=== PATIENT | female | born 1960 | race Caucasian/White ===

== ENCOUNTER → 2021-06-28 14:08 | Outpatient (REF) | payer OTHER, SELFPAY ==
--- NOTE | 2021-06-28 14:09 | CA_ITS ---
Transthoracic Echocardiogram Patient (Last, First, Middle): Miracle Joseph, Gender: Female Date of : 1960 Age: 60 Procedure Date: 06/28/2021 Procedure Type: Transthoracic Echocardiogram Location: OP Height: 152.4 cm Weight: 89.81 kg BSA: 1.86 m2 Heart Rate: bpm BP: 128 / 80 mmHg Check Out Clerk: Referring MD: Harish Murrell PA-C Symptoms: Z95.2 - Presence of prosthetic heart valve Study Quality: Fair ECG Rhythm: Sinus Conclusions: - The left ventricular systolic function is normal. The visually estimated ejection fraction is between 60-65%. - Evidence suggests grade II (moderate) diastolic dysfunction. - A mechanical prosthetic aortic valve is present. The prosthetic aortic valve appears to be functioning normally. - There is mild mitral valve regurgitation. Findings Left Ventricle Normal left ventricular cavity size. There is mildly increased left ventricular wall thickness. The left ventricular systolic function is normal. The visually estimated ejection fraction is between 60-65%. There is no evidence of regional wall motion abnormalities. E/E prime ratio is >15, consistent with elevated filling pressures. Evidence suggests grade II (moderate) diastolic dysfunction. Right Ventricle Normal right ventricular cavity size. There is low normal right ventricular systolic function. TAPSE 1.8cm. Atria The left atrium is moderately dilated. The right atrium is normal in size. Aortic Valve A mechanical prosthetic aortic valve is present. The prosthetic aortic valve appears to be functioning normally. The mean gradient is 15 mmHg. The aortic valve area is 1.53 cm2. There is trace (trivial) aortic valve regurgitation. Acceleration time 65 milliseconds; normal. Trivial regurgitation- difficult to say valvular vs para-valvular. Mitral Valve There is mild mitral annular calcification. There is mild mitral valve regurgitation. There is no mitral valve stenosis. Pulmonic Valve The pulmonic valve was not well visualized. Tricuspid Valve Normal tricuspid valve structure. There is trace tricuspid valve regurgitation. The pulmonary artery systolic pressure is normal. Great Vessels The aortic annulus, sinuses of valsalva, and asc aorta are normal in size. Venous The inferior vena cava is normal in size and collapses greater than 50% with inspiration. Pericardium/Pleural There is a trivial pericardial effusion. Prior Study Comparison No prior study available for comparison. Measurements 2D Linear Measurements IVSd: 1.22 0.6-0.9/0.6-1.0 cm LVIDd: 4.05 3.9-5.3/4.2-5.9 cm LVIDd Index: 2.18 2.4-3.2/2.2-3.1 cm/m2 LVIDs: 2.69 2.0-3.6 cm LVPWd: 1.21 0.7-1.1 cm Ao Root: 2.50 2.1-3.5 cm LA Diam: 4.30 2.7-3.8/3.0-4.0 cm LAIDs Index: 2.31 1.5-2.3 cm/m2 LV Mass: 213.89 67-162/88-224 g LV Mass Index: 115.00 43-95/49-115 g/m2 LVOT Diam: 2.00 3.0+(-)1.3 cm 2D Systolic Function EF 4C: 47.00 >55% EF 2C: 56.20 >55% Mitral Valve MV Pk E: 1.18 MV PK A: 1.05 MV Decel Time: 222.00 E/A: 1.10 E'Lateral: 8.70 E'Medial: 5.77 E/E' Med: 20.50 E/E' Lat: 13.60 PHT: 65.00 MVA PHT: 3.38 Decel Alexander: 5.32 Aortic Valve AoV Pk Dimas: 2.77 AoV Mn Dimas: 1.72 AoV VTI: 0.60 AoV Pk Grad: 31.00 Aov Mn Grad: 15.00 VERONA Cont.VTI: 1.53 LVOT LVOT Pk Dimas: 1.18 LVOT Mn Dimas: 0.81 LVOT VTI: 0.29 LVOT Pk Grad: 6.00 LVOT Mn Grad: 3.00 LVOT Diam: 2.00 LVOT Area: 3.14 Diastolic Function MV Pk E: 1.18 MV Pk A: 1.05 E/A: 1.10 E'Medial: 5.77 E/E' Med: 20.50 E' Laterial: 8.70 E/E' Lat: 13.60 Right Ventricle TAPSE (mm): 18.00 TVS' Dimas: 11.00 Tricuspid Valve TR Pk Dimas: 2.25 TR Pk Grad: 20.00 RA Press: 3.00 Great Vessels Aorta Ao Root-2D: 2.50 2.0-3.7 cm Ao Asc: 2.90 2.1-3.4 cm Pulmonary Valve PV Pk Dimas: 1.15 Peak PV Grad: 5.00 Updated in Other Vendor System with Status of Final Jose Manuel Barrett MD electronically signed on 06/29/2021 10:34:35 AM with status of Final
== END ==
LOC: HO.CARD 14:08
PROVIDERS: PCP Physician Assistant; Visit Provider Physician Assistant
DX: Z95.2 Presence of prosthetic heart valve (principal)
CPT/HCPCS: 93306

== ENCOUNTER → 2021-07-03 10:39 | Outpatient (BNVA) | payer OTHER, SELFPAY | PROVIDERS: PCP Physician Assistant; Referring Provider Physician Assistant; Visit Provider Internal Medicine | DX: I48.0 Paroxysmal atrial fibrillation (principal); I65.23 Occlusion and stenosis of bilateral carotid arteries; I10 Essential (primary) hypertension; Z95.2 Presence of prosthetic heart valve | CPT/HCPCS: 93005 ==

== ENCOUNTER 2021-07-18 08:23 | Outpatient (REF) | payer OTHER, SELFPAY ==
[2021-07-18 09:26] LABS: Hematocrit 39.9 % (37.0-47.0); Hemoglobin 12.8 g/dl (12.0-16.0); Mean Corpuscular HGB Conc 32.1 g/dl (31.0-35.0); Mean Corpuscular Hemoglobin 29.1 pg (27.0-33.0); Mean Corpuscular Volume 90.7 fL (80.0-98.0); Mean Platelet Volume 11.2 fL (9.4-12.3); Platelet Count 237 X10*3/uL (160-400)
[2021-07-18 09:35] LABS: Estimated Average Glucose 157 mg/dL; Hemoglobin A1c % 7.1 %
[2021-07-18 10:09] LABS: Alanine Aminotransferase 22 U/L (0-31); Albumin Level 3.9 g/dL (3.5-5.0); Alkaline Phosphatase 85 U/L (39-117); Anion Gap 9 (12-20); Aspartate Amino Transferase 23 U/L (5-31); Bilirubin Total 1.6 mg/dL (0.0-1.0); Blood Urea Nitrogen 12 mg/dL (9-16); Calcium 8.6 mg/dL (8.4-10.2); Carbon Dioxide 29 mmol/L (22-29); Chloride 104 mmol/L (96-108); Cholesterol 157 mg/dL; Estimated Glomerular Filt Rate > 60; Glucose Fasting 120 mg/dL (60-99); HDL Cholesterol 38 mg/dL; LDL Cholesterol Calculated 86 mg/dl; Potassium 4.3 mmol/L (3.3-5.1); Sodium 138 mmol/L (135-145); Total Protein 6.3 g/dL (6.5-8.0); Triglycerides 168 mg/dL
[2021-07-18 10:18] LABS: TSH reflex Free T4 3.19 uIU/mL (0.32-4.0)
== END 2021-07-18 08:24 | disposition home or self-care (01) ==
LOC: HO.LAB 08:23
PROVIDERS: PCP Physician Assistant; Visit Provider Physician Assistant
DX: E78.2 Mixed hyperlipidemia (principal); I10 Essential (primary) hypertension; E11.9 Type 2 diabetes mellitus without complications
CPT/HCPCS: 36415; 80053; 80061; 83036; 84443; 85027

== ENCOUNTER → 2021-12-31 15:14 | Outpatient (BNVA) | payer OTHER, SELFPAY | PROVIDERS: PCP Physician Assistant; Referring Provider Physician Assistant; Visit Provider Internal Medicine | DX: Z13.89 Encounter for screening for other disorder (principal) ==

== ENCOUNTER 2022-01-31 09:02 | Outpatient (REF) | payer OTHER, SELFPAY ==
[2022-01-31 10:14] LABS: Hematocrit 39.6 % (37.0-47.0); Hemoglobin 12.6 g/dl (12.0-16.0); Mean Corpuscular HGB Conc 31.8 g/dl (31.0-35.0); Mean Corpuscular Hemoglobin 29.5 pg (27.0-33.0); Mean Corpuscular Volume 92.7 fL (80.0-98.0); Mean Platelet Volume 11.1 fL (9.4-12.3); Platelet Count 245 X10*3/uL (160-400); Red Blood Count 4.27 X10*6/uL (4.20-5.50); Red Cell Distribution Width 13.1 % (11.0-16.0); White Blood Count 6.5 X10*3/uL (4.8-10.8)
[2022-01-31 10:19] LABS: Estimated Average Glucose 163 mg/dL; Hemoglobin A1c % 7.3 %
[2022-01-31 10:50] LABS: Alanine Aminotransferase 19 U/L (0-31); Albumin Level 3.8 g/dL (3.5-5.0); Alkaline Phosphatase 86 U/L (39-117); Anion Gap 12 (12-20); Aspartate Amino Transferase 20 U/L (5-31); Bilirubin Total 1.1 mg/dL (0.0-1.0); Blood Urea Nitrogen 12 mg/dL (9-16); Calcium 8.8 mg/dL (8.4-10.2); Carbon Dioxide 27 mmol/L (22-29); Chloride 105 mmol/L (96-108); Cholesterol 171 mg/dL; Estimated Glomerular Filt Rate > 60; Glucose Fasting 122 mg/dL (60-99); HDL Cholesterol 40 mg/dL; LDL Cholesterol Calculated 102 mg/dl; Potassium 4.4 mmol/L (3.3-5.1); Sodium 140 mmol/L (135-145); Total Protein 6.4 g/dL (6.5-8.0); Triglycerides 148 mg/dL
[2022-01-31 10:53] LABS: Creatinine Urine 85.26 mg/dL; Microalbum/Creatinine Ratio Ur 134.8 ug/mg cr
[2022-01-31 11:00] LABS: TSH reflex Free T4 3.16 uIU/mL (0.32-4.0)
== END 2022-01-31 09:03 | disposition home or self-care (01) ==
LOC: HO.LAB 09:02
PROVIDERS: PCP Physician Assistant; Visit Provider Physician Assistant
DX: E11.9 Type 2 diabetes mellitus without complications (principal)
CPT/HCPCS: 36415; 80053; 80061; 82043; 83036; 84443; 85027

== ENCOUNTER 2022-09-16 13:45 | Outpatient (REF) | payer OTHER, SELFPAY ==
[2022-09-16 16:30] LABS: Hematocrit 40.5 % (37.0-47.0); Mean Corpuscular HGB Conc 32.1 g/dl (31.0-35.0); Mean Corpuscular Hemoglobin 29.4 pg (27.0-33.0); Mean Corpuscular Volume 91.6 fL (80.0-98.0); Mean Platelet Volume 10.9 fL (9.4-12.3); Platelet Count 260 X10*3/uL (160-400); Red Blood Count 4.42 X10*6/uL (4.20-5.50); White Blood Count 8.4 X10*3/uL (4.8-10.8)
[2022-09-16 16:45] LABS: Estimated Average Glucose 169 mg/dL; Hemoglobin A1c % 7.5 %
[2022-09-16 16:53] LABS: Alanine Aminotransferase 18 U/L (0-31); Alkaline Phosphatase 93 U/L (39-117); Anion Gap 12 (12-20); Aspartate Amino Transferase 23 U/L (5-31); Bilirubin Total 1.4 mg/dL (0.0-1.0); Blood Urea Nitrogen 10 mg/dL (9-16); Calcium 8.9 mg/dL (8.4-10.2); Carbon Dioxide 28 mmol/L (22-29); Chloride 104 mmol/L (96-108); Cholesterol 190 mg/dL; Estimated Glomerular Filt Rate > 60; Glucose Fasting 97 mg/dL (60-99); HDL Cholesterol 45 mg/dL; LDL Cholesterol Calculated 111 mg/dl; Potassium 4.3 mmol/L (3.3-5.1); Sodium 140 mmol/L (135-145); Total Protein 6.5 g/dL (6.5-8.0); Triglycerides 172 mg/dL
[2022-09-16 17:10] LABS: TSH reflex Free T4 3.08 uIU/mL (0.32-4.0)
[2022-09-16 17:11] LABS: Appearance Urine Clear; Color Urine Yellow; Glucose Urine UA Negative (Negative); Leukocyte Esterase Urine Small (1+) (Negative); Nitrite Urine Negative (Negative); PH 5.5 (5.0-9.0); Specific Gravity - Urine 1.015 (1.005-1.025); UMIC TRIGGER UACC YES; Urine Blood Large (3+) (Negative); Urine Ketones Negative (Negative); Urine Protein Trace mg/dL (Neg-Trace)
[2022-09-16 17:16] LABS: Bacteria Urine None Seen (None Seen); Hyaline Casts Urine 0-2 /LPF (0-2); UACC Culture Trigger YES
== END 2022-09-16 13:46 | disposition home or self-care (01) ==
LOC: HO.HMGCLDS 13:45
PROVIDERS: PCP Physician Assistant; Visit Provider Physician Assistant
DX: E78.2 Mixed hyperlipidemia (principal); E11.65 Type 2 diabetes mellitus with hyperglycemia; R30.0 Dysuria; R82.90 Unspecified abnormal findings in urine
CPT/HCPCS: 36415; 80053; 80061; 81001; 81003; 83036; 84443; 85027; 87086; 87147

== ENCOUNTER 2023-08-25 14:43 | Outpatient (AMB) | payer OTHER, SELFPAY ==
[2023-08-25 14:46] VITALS: BP 150/60; PULSE 70; RESP 17; BMI 38.1
--- NOTE | 2023-08-25 14:46 | MHC.PC.OV ---
Vital Signs 08/25/23 14:46 08/25/23 15:18 Height 5 ft Weight 195 lb 2 oz BMI 38.1 BP 150/60 H 140/60 H Blood Pressure Location Lt brachial Position Sitting Respiration 17 Pulse 70 Pulse Source Palpation Intake Visit Reasons: pe Intake Note: Patient is here today for a physical. Houseperson Required: No Accompanied by: Self / Same As Patient Allergies amoxicillin [From Augmentin] Adverse Reaction (Intermediate, Verified 08/25/23 14:55) Rash clavulanic acid [From Augmentin] Adverse Reaction (Intermediate, Verified 08/25/23 14:55) Rash Medication List - Last Reconciled 08/25/23 by Harish Murrell PA-C atorvastatin 40 mg PO DAILY 90 days metformin ER 500 mg PO TID 90 days metoprolol succinate ER 75 mg (1.5 x 50 mg) PO DAILY 90 days multivitamin 1 tab PO DAILY warfarin 5 mg PO DAILY warfarin mg PO Tobacco use date assessed: 02/19/23 Dental Screening Dental Screen Date: 08/25/23 Did you have a dental visit in the last 12 months?: Yes Did you have a dental problem in the last 6 months where you did not have access to dental care?: No Was dental information given to patient?: Patient has dentist HPI pe HPI Details Patient is a 62 year old? female here today for routine annual physical. Patient has a past medical history significant for type 2 diabetes obesity,? AVR ( on anticoagulation) hyperlipidemia, paroxysmal AFIB .. AVR: Is on Anticoagulation , Has been set up with home meter for her INR. IS followed by warfarin clinic ( [facility]).? Denies any overt signs of bleeding. She does have an extensive cardiac family history as she has a mother and a sister both with valve replacements.? She has a brother and father whom had coronary artery disease needing coronary artery bypass. She has lost follow-up with her edge burnisher. No overt signs of Congestive heart failure though likely needs surveillance echocardiogram to evaluate her aortic valve function. ? .. DMII: Does check her BLood sugars at home Reports sugars 140 -190s.? Today's A1c at 8.1 from 7.3. PLAN: Will increase her metformin to a 1000 b.i.d.. Advised on adapting to a diabetic diet . Hypertension:? Patient's blood pressure slightly elevated today office Colorectal cancer screening:? Recently had Dora was positive and is willing to speak with torch cutter about colonoscopy.? She has been bridged with Lovenox in the past due to her mechanical aortic valve replacement.? She reports she usually has large amount of ecchymosis on her abdomen due to the anticoagulation. Still considering colonoscopy. Vaccines: Up-to-date with COVID vaccine, pneumonia vaccine tetanus vaccine,UTD flu vaccine, considering singrex . Payroll Supervisor: Has not seen a DEPUTY SHERIFF LIEUTENANT-will call [facility] for Pap . mammo: Followed at [facility] for her mammograms [facility] Surgical History H/O lithotripsy H/O aortic valve replacement (~08/2015) Family History Father CAD (coronary artery disease) Mother Aortic valvular disorder Brother CAD (coronary artery disease) Aortic valvular disorder Sister Breast cancer Social History Housing: House Alcohol intake: never Patient Tobacco Use Status: Never used Tobacco e-Cigarette/Vaping Use: Never Used Second Hand Smoke Exposure: No service: No Current occupational status: employed Current occupation: [employer] Cognitive needs: No Hearing needs: No Vision needs: No Questionnaire Thrive Questionnaire Date Thrive assessed: 02/19/23 GLENN-7 AMB Questionnaire GLENN-7 Date GLENN - 7 assessed: 02/19/23 Source: Developed by Drs. Richard Rowe, Britt Silver, Jensen Bucio and colleagues, with an educational joaquina from [employer]. Review of Systems Const Denies body aches, Denies chills, Denies excessive sweating, Denies fatigue, Denies fever(s) and Denies headache(s) Eyes Denies blurry vision ENT Denies dysphagia, Denies vertigo, Denies dizziness, Denies headache(s), Denies hearing loss and Denies tinnitus Card Denies chest pain, Denies chest pain with activity, Denies syncope, Denies irregular heart rhythm and Denies dyspnea Resp Denies chest congestion, Denies cough, Denies hemoptysis, Denies dyspnea and Denies wheezing GI Denies abdominal pain, Denies melena, Denies hematochezia, Denies coffee ground emesis, Denies dysphagia, Denies diarrhea, Denies nausea and Denies vomiting Denies urinary frequency, Denies dysuria, Denies urinary hesitancy and Denies urinary urgency Musc Denies arthralgias, Denies limited range of motion, Denies muscle cramps and Denies muscle weakness Skin/Breast Denies rash and Denies skin ulcer Neuro Denies Abnormal speech present, Denies confusion, Denies vertigo, Denies dizziness, Denies syncope, Denies headache(s), Denies memory loss and Denies seizure-like activity Psych Denies anxiety, Denies confusion, Denies depression, Denies memory loss, Denies panic attacks and Denies paranoia Endo Denies excessive sweating, Denies fatigue, Denies flushing, Denies polydipsia and Denies polyuria Aller/Immun Denies wheezing Physical exam (Primary Care) Vital Signs: Last Vital Signs Pulse 70 08/25/23 14:46 Resp 17 08/25/23 14:46 BP 140/60 H 08/25/23 15:18 BMI result Body Mass Index 38.1 BMI Assessment/Plan discussion: High Tobacco/Smoking Status: Tobacco use Status Tobacco use date assessed 02/19/23 08/25/23 14:50 Patient Tobacco Use Status Never used Tobacco 08/25/23 14:50 e-Cigarette/Vaping Use Never Used 08/25/23 14:50 Thrive Assessment: Date of Thrive Assessment Date Thrive assessed 02/19/23 08/25/23 14:50 Const Other: Obese General: cooperative, comfortable, no acute distress, alert and awake; No confusion Orientation/consciousness: oriented to person, oriented to place, patient oriented x3 and No confusion HENMT Head: Yes normocephalic Ears: external ears normal and TM's normal bilaterally Face and sinus: No sinus tenderness Mouth: Normal oral and palatal mucosa present and tongue normal Teeth and gingiva: dentition normal and gingiva normal Throat: Yes posterior oropharynx normal, Yes tonsils normal and Yes uvula midline Eyes Conjunctivae: conjunctivae normal Sclerae: sclerae normal Pupils: Equal, round and reactive pupils present EOM: EOMs intact bilaterally Direct Ophthalmoscopy: No no photophobia Neck Neck: Yes no lymphadenopathy, No tender and Yes no JVD Thyroid: Thyroid normal Carotids: no bruits Chest Chest palpation & inspection: no tenderness Resp Effort & Inspection: normal respiratory effort, no audible wheezes, not labored and no stridor Auscultation: no crackles, no rales, no rhonchi and no wheezes Cardio Jugular venous distension: no JVD Rate: regular rate, not bradycardic and not tachycardic Rhythm: regular rhythm Bruits: no carotid bruits Peripheral pulses: Peripheral pulses 2+ throughout GI Inspection: Yes normal to inspection, No abdominal wall ecchymosis and No visible herniation Palpation (GI): Soft to palpation, nontender, no guarding, not rigid and No hepatosplenomegaly present Auscultation: normoactive bowel sounds General: Yes no CVA tenderness Back/Spine/Pelvis Back: no CVA tenderness and No back tenderness Cervical Spine: cervical ROM normal Thoracic/Lumbar Spine: thoracic and lumbar spine normal to inspection, straight leg raise negative bilaterally, No thoraco-lumbar ROM limited and No lumbar spinal tenderness Skin Lesions: no lesions Rashes: no rashes Wounds: no wounds Neuro General: oriented to person, oriented to place, patient oriented x3, CN's II-XI intact bilaterally and No confusion Cranial nerves: Yes Equal, round and reactive pupils present and Yes Normal accommodation reflex present Cognition (Neuro): normal cognition Speech: No Abnormal speech present Gait exam (Neuro): Normal gait present Motor exam (neuro): 5/5 motor strength present throughout Extrem Right upper extremity: full ROM; no cyanosis Left upper extremity: full ROM; no cyanosis Right lower extremity: no edema Left lower extremity: no edema Psych Appearance: grossly normal Mental Status: mental status grossly normal Affect: normal affect Attitude: cooperative Thought process: Normal thought process present Results AMB Hemoglobin A1c AMB Hemoglobin A1c 8.1 % Last Edit by RAN Cerda on 08/25/23 15:23 Results Reviewed Results Reviewed: Laboratory Last Values Hgb A1c (Clinic) 8.1 % (4.0-6.0) H 08/25/23 15:16 Assessment and Plan Assessment & Plan (1) Annual physical exam: Code(s): Z00.00 - Encounter for general adult medical examination without abnormal findings (2) PAF (paroxysmal atrial fibrillation): Code(s): I48.0 - Paroxysmal atrial fibrillation Plan: Continues on rate control metoprolol, anticoagulation warfarin. Does her own home INRs in ports to [facility] anticoagulation. Reports her INRs have been fairly stable and no overt signs of bleeding. Would like to reestablish care with [facility] (3) DMII (diabetes mellitus, type 2): Code(s): E11.9 - Type 2 diabetes mellitus without complications Qualifiers: Diabetes mellitus complication status: with hyperglycemia Diabetes mellitus terminal operations manager insulin use: without long-term use Qualified Code(s): E11.65 - Type 2 diabetes mellitus with hyperglycemia Plan: Patient's type 2 diabetes suboptimally controlled with today's A1c at 8.1 Will increase her metformin to a 1000 b.i.d.. She does report sugars at home been 150s to 180s. \ Will check an A1c with goal A1c to be below 7.0 (4) HLD (hyperlipidemia): Code(s): E78.5 - Hyperlipidemia, unspecified Qualifiers: Hyperlipidemia type: mixed hyperlipidemia Qualified Code(s): E78.2 - Mixed hyperlipidemia Plan: Continues on statin therapy without side effect. Most recent LDL subtherapeutic at 111, will continue lifestyle modifications and if still above 100 will consider increasing dose of statin potency. Goal LDL to be below 100 (5) Obese: Code(s): E66.9 - Obesity, unspecified Qualifiers: Body mass index: BMI 38.0-38.9 Obesity classification: adult class 2 (BMI 35 - 39.9) Obesity type: due to excess calories Serious obesity comorbidity presence: with serious comorbidity Qualified Code(s): E66.01 - Morbid (severe) obesity due to excess calories; Z68.38 - Body mass index [BMI] 38.0-38.9, adult Plan: Patient does understand her BMI is over 30 will work on being more physically active an Adapta better eating habits to reduce her weight (6) S/P AVR (aortic valve replacement): Code(s): Z95.2 - Presence of prosthetic heart valve Plan: Continues with managing her own INRs at home reports to [facility] anticoagulation. Goal INR to be between 2.5-3.5. She otherwise denies any overt signs of bleeding. (7) Essential hypertension: Code(s): I10 - Essential (primary) hypertension Plan: Patient's blood pressure slightly elevated today in office.. Will start Jose inhibitor for renal protection and better blood pressure control.. . Goal blood pressure to be below 140/90 Orders: Orders CA echo transthoracic complete 08/25/23 Z95.2 - Presence of prosthetic heart valve AMB Hemoglobin A1c 08/25/23 E11.9 - Type 2 diabetes mellitus without complications Medications: New lisinopril 5 mg PO DAILY 90 tabs 1RF I10 - Essential (primary) hypertension Changed From metformin ER 500 mg PO TID 90 days 270 tabs 2RF E11.9 - Type 2 diabetes mellitus without complications To metformin ER 1,000 mg (2 x 500 mg) PO BID 90 days 360 tabs 2RF E11.9 - Type 2 diabetes mellitus without complications Coding Level of Care Code Est Pt Prev Care 40-64y(02014) Diagnoses Annual physical exam Z00.00 PAF (paroxysmal atrial fibrillation) I48.0 Type 2 diabetes mellitus with hyperglycemia, without long-term current use of insulin E11.65 Diabetes mellitus complication status: with hyperglycemia Diabetes mellitus long-term insulin use: without long-term use Mixed hyperlipidemia E78.2 Hyperlipidemia type: mixed hyperlipidemia Class 2 severe obesity due to excess calories with serious comorbidity and body mass index (BMI) of 38.0 to 38.9 in adult E66.01; Z68.38 Body mass index: BMI 38.0-38.9 Obesity classification: adult class 2 (BMI 35 - 39.9) Obesity type: due to excess calories Serious obesity comorbidity presence: with serious comorbidity S/P AVR (aortic valve replacement) Z95.2 Essential hypertension I10
[2023-08-25 15:18] VITALS: BP 140/60
== END 2023-08-25 15:26 | disposition home or self-care (01) ==
PROVIDERS: PCP Physician Assistant; Visit Provider Physician Assistant
DX: E11.9 Type 2 diabetes mellitus without complications (principal)
CPT/HCPCS: 83036; 99396

== ENCOUNTER → 2023-09-16 14:32 | Outpatient (REF) | payer OTHER, SELFPAY ==
--- NOTE | 2023-09-16 14:44 | CA_ITS ---
Transthoracic Echocardiogram Patient (Last, First, Middle): Miracle Joseph, Gender: Female Date of : 1960 Age: 62 Procedure Date: 09/16/2023 Procedure Type: Transthoracic Echocardiogram Location: OP Height: 152.4 cm Weight: 86.18 kg BSA: 1.83 m2 Heart Rate: bpm BP: 118 / 60 mmHg Claims Clerk: Referring MD: Harish Murrell PA-C Sports Nutritionist: Manny Correia MD Symptoms: Z95.2 - Presence of prosthetic heart valve Study Quality: Adequate ECG Rhythm: Sinus Conclusions: - 1. Normal LV systolic function with mild LVH with impaired relaxation filling pattern 2. Normally functioning mechanical aortic prosthetic valve with mean gradient of 11 mmHg 3. Normal measured RV systolic pressure 4. No gross pericardial effusion Findings Left Ventricle Normal left ventricular size and systolic function. There is mildly increased left ventricular wall thickness. The visually estimated ejection fraction is between 60-65%. Spectral Doppler is indicative of an impaired relaxation filling pattern. E/E prime ratio is between 8 and 15 consistent with indeterminate filling pressures. Right Ventricle Normal right ventricular cavity size and systolic function. Atria The left atrium is mildly dilated. There is no evidence of interatrial shunt. The right atrium is likely dilated. Aortic Valve A mechanical prosthetic aortic valve is present. The prosthetic aortic valve appears to be functioning normally. The mean gradient is 11 mmHg. There is no aortic valve regurgitation. the calculated effective orifice area is 1.6 cm2. The valve is well seated without abnormal rocking motion. The mean gradient appears to be within normal limits for a mechanical valve Mitral Valve There is mild anterior and moderate posterior mitral leaflet thickening. There is mild mitral annular calcification. There is trace mitral valve regurgitation. There is no mitral valve stenosis. Pulmonic Valve The pulmonic valve is likely normal. Tricuspid Valve Normal tricuspid valve structure. There is mild tricuspid valve regurgitation. The right ventricular systolic pressure is normal. The right ventricular systolic pressure is 25 mmHg. Normal right atrial pressure. There is no evidence of pulmonary hypertension. Great Vessels All visible segments of the aorta are normal in size. The pulmonary artery was not well visualized. Venous The inferior vena cava is normal in size and collapses greater than 50% with inspiration. Pericardium/Pleural There is no evidence of pericardial effusion. Measurements 2D Linear Measurements IVSd: 1.21 0.6-0.9/0.6-1.0 cm LVIDd: 4.10 3.9-5.3/4.2-5.9 cm LVIDd Index: 2.24 2.4-3.2/2.2-3.1 cm/m2 LVIDs: 2.33 2.0-3.6 cm LVPWd: 1.24 0.7-1.1 cm Ao Root: 2.60 2.1-3.5 cm LA Diam: 4.00 2.7-3.8/3.0-4.0 cm LAIDs Index: 2.19 1.5-2.3 cm/m2 LV Mass: 220.57 67-162/88-224 g LV Mass Index: 120.53 43-95/49-115 g/m2 LVOT Diam: 2.00 3.0+(-)1.3 cm 2D Systolic Function EF 4C: 65.50 >55% EF 2C: 58.20 >55% EF BiP: 61.20 >55% Mitral Valve MV Pk E: 1.01 MV PK A: 1.23 MV Decel Time: 281.00 E/A: 0.80 E'Lateral: 6.85 E'Medial: 6.96 E/E' Med: 14.50 E/E' Lat: 14.70 PHT: 82.00 MVA PHT: 2.68 Decel [place]: 3.58 Aortic Valve AoV Pk Dimas: 2.43 AoV Mn Dimas: 1.47 AoV VTI: 0.61 AoV Pk Grad: 24.00 Aov Mn Grad: 11.00 VERONA Cont.VTI: 1.61 LVOT LVOT Pk Dimas: 1.04 LVOT Mn Dimas: 0.71 LVOT VTI: 0.31 LVOT Pk Grad: 4.00 LVOT Mn Grad: 2.00 LVOT Diam: 2.00 LVOT Area: 3.14 Diastolic Function MV Pk E: 1.01 MV Pk A: 1.23 E/A: 0.80 E'Medial: 6.96 E/E' Med: 14.50 E' Laterial: 6.85 E/E' Lat: 14.70 Right Ventricle TAPSE (mm): 17.00 TVS' Dimas: 9.00 Tricuspid Valve TR Pk Dimas: 2.36 TR Pk Grad: 22.00 RA Press: 3.00 RVSP: 25.00 Great Vessels Aorta Ao Root-2D: 2.60 2.0-3.7 cm Ao Asc: 2.80 2.1-3.4 cm Pulmonary Valve PV Pk Dimas: 0.92 Peak PV Grad: 3.00 Updated in Other Vendor System with Status of Final Manny Correia MD electronically signed on 09/17/2023 11:18:02 AM with status of Final
== END ==
LOC: HO.CARD 14:32
PROVIDERS: PCP Physician Assistant; Visit Provider Physician Assistant
DX: Z95.2 Presence of prosthetic heart valve (principal)
CPT/HCPCS: 93306

== ENCOUNTER → 2023-09-16 14:44 | Outpatient (BNV) | payer OTHER, SELFPAY | PROVIDERS: PCP Physician Assistant; Visit Provider Internal Medicine Cardiovascular Disease | DX: I36.1 Nonrheumatic tricuspid (valve) insufficiency (principal); I34.81 Nonrheumatic mitral (valve) annulus calcification; Z95.2 Presence of prosthetic heart valve | CPT/HCPCS: 93306 ==

== ENCOUNTER 2023-09-19 09:10 | Outpatient (REF) | payer OTHER, SELFPAY ==
[2023-09-19 10:16] LABS: Hematocrit 41.6 % (37.0-47.0); Hemoglobin 13.4 g/dl (12.0-16.0); Mean Corpuscular HGB Conc 32.2 g/dl (31.0-35.0); Mean Corpuscular Hemoglobin 29.3 pg (27.0-33.0); Mean Platelet Volume 11.5 fL (9.4-12.3); Platelet Count 238 X10*3/uL (160-400); Red Blood Count 4.57 X10*6/uL (4.20-5.50); Red Cell Distribution Width 13.2 % (11.0-16.0); White Blood Count 6.8 X10*3/uL (4.8-10.8)
[2023-09-19 10:50] LABS: Alanine Aminotransferase 20 U/L (0-31); Albumin Level 3.9 g/dL (3.5-5.0); Alkaline Phosphatase 98 U/L (39-117); Anion Gap 14 (12-20); Aspartate Amino Transferase 22 U/L (5-31); Bilirubin Total 1.3 mg/dL (0.0-1.0); Blood Urea Nitrogen 10 mg/dL (9-16); Calcium 9.2 mg/dL (8.4-10.2); Carbon Dioxide 29 mmol/L (22-29); Chloride 103 mmol/L (96-108); Cholesterol 160 mg/dL (<200); Estimated Glomerular Filt Rate > 60; Glucose Fasting 117 mg/dL (60-99); HDL Cholesterol 42 mg/dL (>40); LDL Cholesterol Calculated 88 mg/dL (<100); Potassium 4.6 mmol/L (3.3-5.1); Sodium 141 mmol/L (135-145); Total Protein 6.9 g/dL (6.5-8.0); Triglycerides 152 mg/dL (<150)
[2023-09-19 10:54] LABS: Creatinine Urine 137.85 mg/dL; Microalbum/Creatinine Ratio Ur 155.2 ug/mg cr (<30)
== END 2023-09-19 09:11 | disposition home or self-care (01) ==
LOC: HO.LAB 09:10
PROVIDERS: PCP Physician Assistant; Visit Provider Physician Assistant
DX: E11.65 Type 2 diabetes mellitus with hyperglycemia (principal); E78.2 Mixed hyperlipidemia
CPT/HCPCS: 36415; 80053; 80061; 82043; 82570; 85027

== ENCOUNTER 2024-02-25 13:53 | Outpatient (AMB) | payer OTHER, SELFPAY ==
[2024-02-25 13:59] VITALS: BP 152/62; PULSE 60; O2SAT 95; BMI 36.3
--- NOTE | 2024-02-25 13:59 | A.OFFPC_ITS ---
Vital Signs 02/25/24 13:59 02/25/24 14:22 Height 5 ft Weight 186 lb 2 oz BMI 36.3 BP 152/62 H 150/60 H Blood Pressure Location Lt brachial Position Sitting Pulse 60 Pulse Source Pulse Oximeter Pulse Oximetry (%) 95 Oxygen Delivery Method Room Air Intake Visit Reasons: f/u DMII/ AVR - see comments Cabana Attendant Required: No Accompanied by: Self / Same As Patient Allergies amoxicillin [From Augmentin] Adverse Reaction (Intermediate, Verified 02/25/24 14:05) Rash clavulanic acid [From Augmentin] Adverse Reaction (Intermediate, Verified 02/25/24 14:05) Rash Medication List - Last Reconciled 02/25/24 by Harish Murrell PA-C atorvastatin 40 mg PO DAILY 90 days lisinopril 5 mg PO DAILY metformin ER 1,000 mg (2 x 500 mg) PO BID 90 days metoprolol succinate ER 75 mg (1.5 x 50 mg) PO DAILY 90 days multivitamin 1 tab PO DAILY warfarin 5 mg PO DAILY warfarin mg PO Tobacco use date assessed: 02/25/24 Dental Screening Dental Screen Date: 02/25/24 Did you have a dental visit in the last 12 months?: No Did you have a dental problem in the last 6 months where you did not have access to dental care?: Yes Was dental information given to patient?: Patient has dentist HPI f/u DMII/ AVR - see comments HPI Details Patient is a 63 year old? female here today for a follow-up visit. Patient has a past medical history significant for type 2 diabetes obesity,? AVR ( on anticoagulation) hyperlipidemia, paroxysmal AFIB Nephrolithiasis : Recently had an episode gross hematuria that she was evaluated at [facility]. She was able to pass the stones. Has followed up with urologist and doing well. Has been increasing her fluid intake and has made some dietary modifications. .. AVR: Is on Anticoagulation , Has been set up with home meter for her INR. IS followed by warfarin clinic ( [facility]).? Denies any overt signs of bleeding. She does have an extensive cardiac family history as she has a mother and a sister both with valve replacements.? She has a brother and father whom had coronary artery disease needing coronary artery bypass. She has lost follow-up with her fine arts teacher. No overt signs of Congestive heart failure though likely needs surveillance echocardiogram to evaluate her aortic valve function. ? .. DMII: Has lost weight since last office visit, we did increase her metformin to max dose of 2000 mg. Does check her Bood sugars at home Reports sugars 140 - 190s.? She has been making dietary modifications. Today's A1c 6.9 . Hypertension:? Patient's blood pressure slightly elevated today office, she does not regularly check her blood pressure at home. Blood pressure has been slightl y high over the last 6 months thus will increase her lisinopril to 10 mg for better blood pressure control. Laboratory Tests 01/31/22 09/16/22 08/25/23 09:20 13:52 15:16 RBC 4.42 Fasting Glucose Hemoglobin A1c % 7.5 Hgb A1c (Clinic) 8.1 H Triglycerides Cholesterol 190 LDL Cholesterol, C alc 111 Urine Microalbumin 115.0 09/19/23 09/19/23 09:30 09:35 RBC 4.57 Fasting Glucose 117 H Hemoglobin A1c % Hgb A1c (Clinic) Triglycerides 152 H Cholesterol 160 LDL Cholesterol, C alc Urine Microalbumin 214.0 PFSH Surgical History H/O lithotripsy H/O aortic valve replacement (~08/2015) Family History Father CAD (coronary artery disease) Mother Aortic valvular disorder Brother CAD (coronary artery disease) Aortic valvular disorder Sister Breast cancer Social History Housing: House Alcohol intake: never Patient Tobacco Use Status: Never used Tobacco e-Cigarette/Vaping Use: Never Used Second Hand Smoke Exposure: No service: No Current occupational status: employed 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 1. Little interest or pleasure in doing things: not at all 2. Feeling down, depressed, or hopeless: not at all 3. Trouble falling or staying asleep, or sleeping too much: not at all 4. Feeling tired or having little energy: not at all 5. Poor appetite or overeating: not at all 6. Feeling bad about yourself - or that you are a failure or have let yourself or your family down: not at all 7. Trouble concentrating on things, such as reading the newspaper or watching television: not at all 8. Moving or speaking so slowly that other people could have noticed. Or the opposite - being so fidgety or restless that you have been moving around a lot more than usual: not at all 9. Thoughts that you would be better off or of hurting yourself in some way: not at all Total score: 0 Depression Screening Interpretation: Negative Depression Screening Done: Yes 61913 - PHQ-9 Billing: Yes Source: Developed by Drs. Richard Rowe, Britt Silver, Jensen Bucio and colleagues, with an educational joaquina from [employer]. Thrive Questionnaire Date Thrive assessed: 02/25/24 I am a: Patient What is your living situation today?: I have a steady place to live Within the past 12 months, did the food you bought not last and you didn't have the money to get more?: Never true Within the past 12 months, did you worry whether your food would run out before you got money to buy more?: Never true Do you have trouble paying for medicines?: No Do you have trouble getting transportation to medical appointments?: No Do you have trouble paying your heating and electricity bill?: No Do you have trouble taking care of your child, family member or friend?: No Do you have trouble with day-to-day activities such as bathing, preparing meals, shopping, managing finances, etc.?: No Are you currently unemployed and looking for a job?: No Are you interested in more education?: No Please select the resources that you would like help with: None Currently or been in a relationship where the following occur: no concerns reported THRIVE Score: 0 AUDIT C Alcohol Use Questionnaire (AUDIT-C) 1. How often do you have a drink containing alcohol?: Never 3. How often do you have six or more drinks on one occasion?: Never Total Score: 0 GLENN-7 AMB Questionnaire GLENN-7 Date GLENN - 7 assessed: 02/25/24 Feeling nervous, anxious, or on edge: 0 = Not at all Not being able to stop or control worryin = Not at all Worrying too much about different things: 0 = Not at all Trouble relaxin = Not at all Being so restless that it is hard to sit still: 0 = Not at all Becoming easily annoyed or irritable: 0 = Not at all Feeling afraid as if something awful might happen: 0 = Not at all Total GLENN-7 score (0-4 normal; 5-9 mild; 10-14 moderate; 15-21 severe): 0 Source: Developed by Drs. Richard Rowe, Britt Silver, Jensen Bucio and colleagues, with an educational joaquina from [employer]. GLENN-7 Assessment Billing GLENN-7 Assessment Tool: GLENN-7 Assessment 95770 Physical exam (Primary Care) Vital Signs: Last Vital Signs Pulse 60 02/25/24 13:59 BP 152/62 H 02/25/24 13:59 Pulse Ox 95 02/25/24 13:59 Oxygen Delivery Method Room Air 02/25/24 13:59 BMI result Body Mass Index 36.3 Tobacco/Smoking Status: Tobacco use Status Tobacco use date assessed 02/25/24 02/25/24 14:05 Patient Tobacco Use Status Never used Tobacco 02/25/24 14:05 e-Cigarette/Vaping Use Never Used 02/25/24 14:05 PHQ-9: PHQ-9 Score PHQ-9: Total score 0 02/25/24 14:09 Depression Screening Interpretation: Negative Thrive Assessment: Date of Thrive Assessment Date Thrive assessed 02/25/24 02/25/24 14:05 Currently or been in a relationship where the following occur: no concerns reported Results AMB Hemoglobin A1c AMB Hemoglobin A1c 6.9 % Last Edit by RAN Cerda on 02/25/24 14:09 Assessment and Plan Assessment & Plan (1) DMII (diabetes mellitus, type 2): Code(s): E11.9 - Type 2 diabetes mellitus without complications Qualifiers: Diabetes mellitus catcher helper insulin use: without fpc use Diabetes mellitus complication status: with hyperglycemia Qualified Code(s): E11.65 - Type 2 diabetes mellitus with hyperglycemia Plan: Patient's type 2 diabetes now well controlled, today's A1c is 6.9 from 8.1. We have increased her metformin to 1000 b.i.d.. She has been making dietary modifications. She does report sugars at home been 150s to 180s. \ Will check an A1c with goal A1c to be below 7.0 (2) PAF (paroxysmal atrial fibrillation): Code(s): I48.0 - Paroxysmal atrial fibrillation Plan: Continues on rate control metoprolol, anticoagulation warfarin. Does her own home INRs in ports to [facility] anticoagulation. Reports her INRs have been fairly stable and no overt signs of bleeding. Would like to reestablish care with [facility] (3) HLD (hyperlipidemia): Code(s): E78.5 - Hyperlipidemia, unspecified Qualifiers: Hyperlipidemia type: mixed hyperlipidemia Qualified Code(s): E78.2 - Mixed hyperlipidemia Plan: Continues on statin therapy without side effect. Most recent LDL subtherapeutic at 111, will continue lifestyle modifications and if still above 100 will consider increasing dose of statin potency. Goal LDL to be below 100 (4) S/P AVR (aortic valve replacement): Code(s): Z95.2 - Presence of prosthetic heart valve Plan: Continues with managing her own INRs at home reports to [facility] anticoagulation. Goal INR to be between 2.5-3.5. She otherwise denies any overt signs of bleeding. (5) Essential hypertension: Code(s): I10 - Essential (primary) hypertension Plan: Patient's blood pressure slightly elevated today in office. Will increase her lisinopril to 10 mg for better blood pressure control. Will start Jose inhibitor for renal protection and better blood pressure control.. . Goal blood pressure to be below 140/90 (6) Nephrolithiasis: Code(s): N20.0 - Calculus of kidney Plan: Recently had gross hematuria noted to have 3 possible kidney stones. Has followed up with urologist and continues on monitoring. Orders: Orders AMB Hemoglobin A1c Today E11.65 - Type 2 diabetes mellitus with hyperglycemia Medications: New blood pressure monitor Testing once a day as needed 1 ea 0RF I10 - Essential (primary) hypertension lisinopril 10 mg PO DAILY 90 days 90 tabs 1RF I10 - Essential (primary) hypertension Discontinued lisinopril Discontinued Reason: Doctor's Order 5 mg PO DAILY 90 tabs 1RF I10 - Essential (primary) hypertension Patient Instructions: Goal: Blood pressure to remain below 140/90, A1c to be below 7.0 Barriers: Adherence to physical activity and healthy eating habits. Coding Level of Care Code Est Pt Level 4 (06637) Complex EM visit Add On G2211 Diagnoses Type 2 diabetes mellitus with hyperglycemia, without long-term current use of insulin E11.65 Diabetes mellitus fpc insulin use: without catcher helper use Diabetes mellitus complication status: with hyperglycemia PAF (paroxysmal atrial fibrillation) I48.0 Mixed hyperlipidemia E78.2 Hyperlipidemia type: mixed hyperlipidemia S/P AVR (aortic valve replacement) Z95.2 Essential hypertension I10 Nephrolithiasis N20.0 Additional Codes GLENN-7 Assessment Billing - GLENN-7 Assessment Tool: GLENN-7 Assessment [id number] ([id number])
[2024-02-25 14:22] VITALS: BP 150/60
== END 2024-02-25 14:25 | disposition home or self-care (01) ==
PROVIDERS: PCP Physician Assistant; Visit Provider Physician Assistant
DX: E11.65 Type 2 diabetes mellitus with hyperglycemia (principal); I48.0 Paroxysmal atrial fibrillation; E78.2 Mixed hyperlipidemia; Z95.2 Presence of prosthetic heart valve; I10 Essential (primary) hypertension; N20.0 Calculus of kidney
CPT/HCPCS: 83036; 99214; G2211

== ENCOUNTER 2024-05-03 08:23 | Outpatient (REF) | payer OTHER, SELFPAY ==
--- NOTE | ~2024-05-03 | XR_ITS ---
EXAMINATION: XR CHEST CLINICAL INFORMATION: Bronchitis. Rule out pulmonary infiltrate. COMPARISON: None available. TECHNIQUE: 2 views of the chest were obtained. FINDINGS: Median sternotomy wires. Cardiac valvular prosthesis. The lungs are mildly hypoexpanded slightly limiting evaluation. Mild bilateral bronchial wall thickening. Streaky linear opacity in the right lung base. No focal consolidation. No pleural effusions or pneumothorax. The cardiac silhouette is mildly prominent. Atherosclerotic arch calcifications. No acute osseous abnormality. Degenerative changes of the thoracic spine. XR/XR chest 2V IMPRESSION: Mild bilateral bronchial wall thickening which can be seen with reactive airways disease. Streaky linear opacity in the right lung base favored to represent atelectasis. No focal consolidation. Electronically signed by: Ozzy Norton MD 05/03/2024 09:21 AM EDT
== END 2024-05-03 08:24 | disposition home or self-care (01) ==
LOC: HO.HMGCX 08:23
PROVIDERS: PCP Physician Assistant; Visit Provider Physician Assistant
DX: J40 Bronchitis, not specified as acute or chronic (principal)
CPT/HCPCS: 71046

== ENCOUNTER 2024-05-09 10:19 | Emergency (ER) | payer OTHER, SELFPAY ==
[2024-05-09 10:34] VITALS: BP 166/76; BP 181/57; PULSE 62; PULSE 66; RESP 16; TEMP 36.7; O2SAT 95; O2SAT 96; BMI 35.2
--- NOTE | 2024-05-09 11:04 | ED_ITS ---
History of Present Illness General Chief Complaint: Epistaxis Stated Complaint: NOSEBLEED,WONT STOP X45 MIN,CONTROLLED PER EMS Time Seen by Provider: 05/09/24 10:36 Source: patient, family ( sister) and EMS Mode of arrival: EMS Limitations: no limitations History of Present Illness HPI Narrative: 63-year-old female came in for evaluation of left nostril bleed. Patient is taking Coumadin for artificial valve replacement, last INR was 3.4 patient was instructed to lower her Coumadin last week. Stated AC in the house is working not to cold or hot. Related Data Home Medications ?Medication ?Instructions ?Recorded ?Confirmed multivitamin 1 tab PO DAILY 05/16/21 02/25/24 warfarin 5 mg tablet 5 mg PO DAILY 05/16/21 02/25/24 warfarin 2.5 mg tablet mg PO 12/31/21 02/25/24 Previous Rx's ?Medication ?Instructions ?Recorded metformin 500 mg tablet,extended 1,000 mg (2 x 500 mg) PO BID 90 08/25/23 release 24 hr days #360 tabs atorvastatin 40 mg tablet 40 mg PO DAILY 90 days #90 tabs 12/29/23 blood pressure monitor #1 ea 02/25/24 lisinopril 10 mg tablet 10 mg PO DAILY 90 days #90 tabs 02/25/24 doxycycline monohydrate 100 mg 100 mg PO BID 5 days #10 caps 05/02/24 capsule metoprolol succinate 50 mg 75 mg (1.5 x 50 mg) PO DAILY 90 05/02/24 tablet,extended release 24 hr days #135 tabs Allergies Allergy/AdvReac Type Severity Reaction Status Date / Time amoxicillin [From Augmentin] AdvReac Intermediate Rash Verified 05/09/24 10:46 clavulanic acid AdvReac Intermediate Rash Verified 02/25/24 14:05 [From Augmentin] Review of Systems 2 Review of Systems: all other systems are reviewed and are negative Constitutional: Reports as per HPI and Reports no additional constitutional complaints Eyes: Reports as per HPI and Reports no additional eye complaints Reports system reviewed and no additional complaints, except as documented Cardiovascular: Reports as per HPI and Reports no additional cardiovascular complaints Respiratory: Reports as per HPI and Reports no additional respiratory complaints Gastrointestinal: Reports as per HPI and Reports no additional gastrointestinal complaints Genitourinary: Reports no additional female genitourinary complaints Musculoskeletal: Reports no additional musculoskeletal complaints Skin/Breast: Reports system reviewed and no additional complaints, except as docu Psychiatric: Reports no additional psychiatric complaints Endocrine: Reports no additional endocrine complaints Hematologic/Lymphatic: Reports no additional hematologic/lymphatic complaints Allergic/Immunologic: Reports no additional allergic/immunologic complaints Reports system reviewed and no additional complaints, except as documented and Reports Abnormal speech present [facility] Past Medical History Surgical History H/O lithotripsy H/O aortic valve replacement (~08/2015) Family History Family History Father CAD (coronary artery disease) Mother Aortic valvular disorder Brother CAD (coronary artery disease) Aortic valvular disorder Sister Breast cancer Social History Social History Housing: House Alcohol intake: never Patient Tobacco Use Status: Never used Tobacco e-Cigarette/Vaping Use: Never Used Second Hand Smoke Exposure: No Advance Directives: No Advance Directives Information Provided: Yes Do you have a plan to hurt others: No Plan service: No Current occupational status: employed Current occupation: acCOUNTING AT [employer] Cognitive needs: No Hearing needs: No Vision needs: No Physical Exam 2 Vital Signs: Vital Signs: Last Vital Signs Temp 98.1 F 05/09/24 12:00 Pulse 71 05/09/24 12:00 Resp 18 05/09/24 12:00 BP 150/54 H 05/09/24 12:00 Pulse Ox 96 05/09/24 12:00 O2 Del Method Room Air 05/09/24 12:00 BMI result Body Mass Index 35.2 Vital signs have been reviewed and appear to be correct. Blood pressure elevated. Heart rate normal. Respiratory rate normal. Temperature normal. Oxygen saturation normal. Appearance: Alert. Oriented X3. No acute distress. Head: Normal external exam. Normocephalic. Atraumatic. No Hawkins signs noted. No raccoon eyes noted Eyes: PERRLA. EOMI. Conjunctiva and sclera normal. Eyelids normal. ENT: left nostril was dry blood, no septal hematoma, no active source of bleeding. Neck: Normal inspection. Neck supple. FROM. No adenopathy. Thyroid Normal. No meningeal signs. No neck mass noted. CVS: Normal heart rate and rhythm. Heart sound normal. No murmurs noted. Pulses normal throughout. Respiratory: No respiratory distress. Painless inspiration. Breath sounds normal. No wheezes/rales/rhonchi noted. Chest nontender. No accessory muscle usage noted or decreased air movement noted. Abdomen: Soft and nontender. Bowel sounds normal in all 4 quadrants. No distention noted. No organomegaly noted. No visible injury noted. Back: No CVA tenderness. Full range of motion noted. Skin: Skin warm and dry. Normal skin color. Normal skin turgor. No rashes/lesions/lacerations noted. Extremities: No lower extremity edema. Extremities exhibit normal range of motion. Extremities nontender. Neuro: Oriented X 3. Cranial nerve exam: II-XII are grossly intact No motor deficit. No sensory deficit. Reflexes normal. Course Reevaluation(s) Reevaluation #1: 1. No active nostril bleed. 2.stable H&H, INR is 1 point night patient was instructed to with her Coumadin Clinic at [facility]. Time: 13:30 Medical Decision Making Differential Diagnosis Differential Diagnoses: The differential diagnosis associated with the presentation includes ( Coagulopathy, supratherapeutic Coumadin, severe anemia, active nosebleed.) Admission/Observation Consideration of admission/observation: Escalation of care including admission/observation considered Lab Data MDM Lab Attestation statement: I reviewed the patient's lab results. 05/09/24 11:27 05/09/24 11:27 Labs: Lab Results 05/09/24 05/09/24 05/09/24 Range/Units 11:27 11:50 12:18 WBC 8.5 (4.8-10.8) X10*3/uL RBC 4.44 (4.20-5.50) X10*6/uL Hgb 13.0 (12.0-16.0) g/dl Hct 39.6 (37.0-47.0) % MCV 89.2 (80.0-98.0) fL MCH 29.3 (27.0-33.0) pg MCHC 32.8 (31.0-35.0) g/dl RDW 13.8 (11.0-16.0) % Plt Count 215 (160-400) X10*3/uL MPV 10.8 (9.4-12.3) fL Immature Gran % (Auto) 0.4 (0.0-0.4) % Neut % (Auto) 67.9 (45-73) % Lymph % (Auto) 20.6 (20-40) % Brantley % (Auto) 6.4 (2-11) % Eos % (Auto) 3.6 (0-4) % Baso % (Auto) 1.1 (0-2) % Lymph # (Auto) 1.8 (1.2-4.9) X10*3/uL Brantley # (Auto) 0.6 (0.1-1.2) X10*3/uL Eos # (Auto) 0.3 (0.0-0.4) X10*3/uL Baso # (Auto) 0.1 (0.0-0.2) X10*3/uL Abs Immat Gran (auto) 0.03 (0.00-0.03) X10*3/uL Absolute Neuts (auto) 5.8 (2.0-8.3) x10*3/uL Absolute Nucleated RBC 0.000 (0.0-0.012) X10*3/uL Nucleated RBC % (auto) 0.0 (0.0-0.2) /100WBC PT 23.0 H (11.1-13.3) SEC INR 1.9 H (0.9-1.1) APTT 39.8 H (26.0-36.8) SEC Sodium 142 (135-145) mmol/L Potassium 4.5 (3.3-5.1) mmol/L Chloride 108 (96-108) mmol/L Carbon Dioxide 25 (22-29) mmol/L Anion Gap 14 (12-20) BUN 14 (9-16) mg/dL Creatinine 0.76 (0.5-1.4) mg/dL Estim Creat Clear Calc 75.7 Estimated GFR > 60 Random Glucose 108 (60-115) mg/dL Calcium 9.1 (8.4-10.2) mg/dL Magnesium 1.7 (1.6-2.6) mg/dL Influenza Type A (PCR) NEGATIVE (Negative) Influenza Type B (PCR) NEGATIVE (Negative) RSV RNA Qual (PCR) NEGATIVE (Negative) SARS-CoV-2 RNA (RT-PCR) NEGATIVE (Negative) S. pyogenes GrpA JOE Negative (Negative) Chronic Conditions Patient?s care impacted by: Other ( On anticoagulation therapy) Discharge Plan Discharge Clinical Impression: Epistaxis Patient Disposition: Home, Self-Care Instructions: Nosebleed (ED) Additional Instructions: please contact your Coumadin clinic informed them with your INR of 1.9 today Prescriptions: No Action atorvastatin 40 mg tablet 40 mg PO DAILY 90 Days Qty: 90 2RF doxycycline monohydrate 100 mg capsule 100 mg PO BID 5 Days Qty: 10 0RF metoprolol succinate 50 mg tablet extended release 24 hr 75 mg PO DAILY 90 Days Qty: 135 1RF warfarin 5 mg tablet 5 mg PO DAILY multivitamin Tablet 1 tab PO DAILY metformin 500 mg tablet extended release 24 hr 1,000 mg PO BID 90 Days Qty: 360 2RF (DME) blood pressure monitor Kit See Rx Instructions .Route Qty: 1 0RF Rx Instructions: Testing once a day as needed lisinopril 10 mg tablet 10 mg PO DAILY 90 Days Qty: 90 1RF warfarin 2.5 mg tablet PO Referrals: Harish Murrell PA-C [Primary Care Provider] - Print Language: Armenian
[2024-05-09 11:33] LABS: MANUAL DIFF FLAG NO
[2024-05-09 11:35] LABS: Basophils Absolute Auto 0.1 X10*3/uL (0.0-0.2); Basophils Percent Auto 1.1 % (0-2); Eosinophils Absolute Auto 0.3 X10*3/uL (0.0-0.4); Eosinophils Percent Auto 3.6 % (0-4); Hematocrit 39.6 % (37.0-47.0); Imm Gran Abs Auto 0.03 X10*3/uL (0.00-0.03); Imm Gran Pct Auto 0.4 % (0.0-0.4); Lymphocytes Absolute Auto 1.8 X10*3/uL (1.2-4.9); Lymphocytes Percent Auto 20.6 % (20-40); Mean Corpuscular HGB Conc 32.8 g/dl (31.0-35.0); Mean Corpuscular Hemoglobin 29.3 pg (27.0-33.0); Mean Corpuscular Volume 89.2 fL (80.0-98.0); Mean Platelet Volume 10.8 fL (9.4-12.3); Monocytes Absolute Auto 0.6 X10*3/uL (0.1-1.2); Monocytes Percent Auto 6.4 % (2-11); Neutrophils Absolute Auto 5.8 x10*3/uL (2.0-8.3); Neutrophils Percent Auto 67.9 % (45-73); Platelet Count 215 X10*3/uL (160-400); Red Blood Count 4.44 X10*6/uL (4.20-5.50); Red Cell Distribution Width 13.8 % (11.0-16.0); White Blood Count 8.5 X10*3/uL (4.8-10.8)
[2024-05-09 11:50] LABS: Anion Gap 14 (12-20); Blood Urea Nitrogen 14 mg/dL (9-16); Calcium 9.1 mg/dL (8.4-10.2); Carbon Dioxide 25 mmol/L (22-29); Chloride 108 mmol/L (96-108); Creatinine Clr Calc Pharmacy 75.7; Estimated Glomerular Filt Rate > 60; Glucose Random 108 mg/dL (60-115); Magnesium 1.7 mg/dL (1.6-2.6); Potassium 4.5 mmol/L (3.3-5.1); Sodium 142 mmol/L (135-145)
[2024-05-09 12:00] VITALS: BP 150/54; PULSE 71; RESP 18; TEMP 36.7; O2SAT 96
[2024-05-09 12:13] LABS: Influenza A PCR NEGATIVE (Negative); Influenza B PCR NEGATIVE (Negative); Resp Syncy Virus RNA Qual PCR NEGATIVE (Negative); SARS COV2 PCR INHOUSE NEGATIVE (Negative)
[2024-05-09 12:20] LABS: IDNOW Serial# 6674DD1D; Strep A Nucleic Acid Negative (Negative)
[2024-05-09 12:32] LABS: INTERNATIONAL NORM RATIO 1.9 (0.9-1.1)
[2024-05-09 12:35] LABS: Partial Thromboplastin Time 39.8 SEC (26.0-36.8)
[2024-05-09 15:02] VITALS: BP 152/49; PULSE 56; RESP 16; TEMP 36.6; O2SAT 95
[2024-05-09 15:22] VITALS: BP 152/49; PULSE 56; RESP 16; TEMP 36.6; O2SAT 95
== END 2024-05-09 15:23 | disposition home or self-care (01) ==
PROVIDERS: Emergency Provider Emergency Medicine; PCP Physician Assistant
DX: R04.0 Epistaxis (principal); Z95.2 Presence of prosthetic heart valve; Z79.01 Long term (current) use of anticoagulants; Z03.818 Encounter for observation for suspected exposure to other biological agents ruled out
CPT/HCPCS: 0241U; 36415; 80048; 83735; 85025; 85610; 85730; 87651; 99283; 99284

== ENCOUNTER 2024-08-29 15:01 | Outpatient (AMB) | payer OTHER, SELFPAY ==
--- NOTE | 2024-08-29 15:07 | MHC.PC.OV ---
Vital Signs 08/29/24 15:24 Height 5 ft 1 in Weight 183 lb 4 oz BMI 34.6 BP 142/50 H Blood Pressure Location Lt brachial Position Sitting Pulse 52 Pulse Source Pulse Oximeter Pulse Oximetry (%) 97 Oxygen Delivery Method Room Air Intake Visit Reasons: PE Intake Note: Patient is here today for a physical. Machine Bunch Maker Required: No Accompanied by: Self / Same As Patient Allergies amoxicillin [From Augmentin] Adverse Reaction (Intermediate, Verified 08/29/24 15:29) Rash clavulanic acid [From Augmentin] Adverse Reaction (Intermediate, Verified 08/29/24 15:29) Rash Medication List - Last Reconciled 08/29/24 by Harish Murrell PA-C atorvastatin 40 mg PO DAILY 90 days blood pressure monitor Testing once a day as needed lisinopril 10 mg PO DAILY 90 days metformin ER 1,000 mg (2 x 500 mg) PO BID 90 days metoprolol succinate ER 75 mg (1.5 x 50 mg) PO DAILY 90 days multivitamin 1 tab PO DAILY warfarin 5 mg PO DAILY warfarin mg PO Tobacco use date assessed: 02/25/24 Dental Screening Dental Screen Date: 02/25/24 HPI PE HPI Details Patient is a 63 year old? female here today for a routine annual physical.. Patient has a past medical history significant for type 2 diabetes obesity,? AVR ( on anticoagulation) hyperlipidemia, paroxysmal AFIB . .. AVR: Is on Anticoagulation , Has been set up with home meter for her INR. IS followed by warfarin clinic ( [facility]).? Denies any overt signs of bleeding. She does have an extensive cardiac family history as she has a mother and a sister both with valve replacements.? She has a brother and father whom had coronary artery disease needing coronary artery bypass. She has lost follow-up with her optometrist/practice owner. Her most recent echocardiogram done in September of 2023 showing a good functioning aortic valve. She has no signs of overt heart failure. No overt signs of Congestive heart failure though likely needs surveillance echocardiogram to evaluate her aortic valve function. ? .. DMII: Has lost weight since last office visit, we did increase her metformin to max dose of 2000 mg. Does check her Bood sugars at home Reports sugars 140 -190s.? She has been making dietary modifications. Today's A1c much improved at 5.8 from 6.9. . Hypertension:? Patient's blood pressure slightly elevated today office, she does not regularly check her blood pressure at home. We have started lisinopril 10 mg and she has been more consistent with the use of lisinopril and blood pressures seem to be better. Will continue current doses of antihypertensive medication and will consider increasing lisinopril to 20 mg Colorectal cancer screening:? Recently had Cologuard was positive and is willing to speak with vegetable handler about colonoscopy.? She has been bridged with Lovenox in the past due to her mechanical aortic valve replacement.? She reports she usually has large amount of ecchymosis on her abdomen due to the anticoagulation. Still considering colonoscopy. Vaccines: Up-to-date with COVID vaccine, pneumonia vaccine tetanus vaccine,UTD flu vaccine, considering singrex . Pediatric Cardiologist: Has not seen a ARMHOLE PRESSER-will call [place] aircraft instrument repairer for Pap . mammo: Followed at [facility] for her mammograms [facility] Medical History (Updated 08/30/24 @ 08:05 by Harish Murrell PA-C) Family history of coronary arteriosclerosis Nephrolithiasis Basal cell carcinoma (BCC) in situ of skin Surgical History (Updated 08/30/24 @ 08:05 by Harish Murrell PA-C) S/P AVR (aortic valve replacement) H/O lithotripsy H/O aortic valve replacement (~08/2015) Family History (Updated 08/29/24 @ 15:38 by Harish Murrell PA-C) Father CAD (coronary artery disease) Mother Aortic valvular disorder Brother CAD (coronary artery disease) Aortic valvular disorder Sister Breast cancer CAD (coronary artery disease) Social History Housing: House Alcohol intake: never Patient Tobacco Use Status: Never used Tobacco e-Cigarette/Vaping Use: Never Used Second Hand Smoke Exposure: No service: No Current occupational status: employed Current occupation: ac[employer]ING [employer] Cognitive needs: No Hearing needs: No Vision needs: No Questionnaire PHQ-9 Over the last 2 weeks, how often have you been bothered by any of the following problems? 1. Little interest or pleasure in doing things: not at all 2. Feeling down, depressed, or hopeless: not at all 3. Trouble falling or staying asleep, or sleeping too much: not at all 4. Feeling tired or having little energy: not at all 5. Poor appetite or overeating: not at all 6. Feeling bad about yourself - or that you are a failure or have let yourself or your family down: not at all 7. Trouble concentrating on things, such as reading the newspaper or watching television: not at all 8. Moving or speaking so slowly that other people could have noticed. Or the opposite - being so fidgety or restless that you have been moving around a lot more than usual: not at all 9. Thoughts that you would be better off or of hurting yourself in some way: not at all Total score: 0 Depression Screening Interpretation: Negative Depression Screening Done: Yes 42198 - PHQ-9 Billing: Yes Source: Developed by Drs. Richard Rowe, Britt Silver, Jensen Bucio and colleagues, with an educational joaquina from [employer] (formerly [employer]). Thrive Questionnaire Date Thrive assessed: 08/29/24 I am a: Patient What is your living situation today?: I have a steady place to live Within the past 12 months, did the food you bought not last and you didn't have the money to get more?: Never true Within the past 12 months, did you worry whether your food would run out before you got money to buy more?: Never true Do you have trouble paying for medicines?: No Do you have trouble getting transportation to medical appointments?: No Do you have trouble paying your heating and electricity bill?: No Do you have trouble taking care of your child, family member or friend?: No Do you have trouble with day-to-day activities such as bathing, preparing meals, shopping, managing finances, etc.?: No Are you currently unemployed and looking for a job?: No Are you interested in more education?: No Please select the resources that you would like help with: None Currently or been in a relationship where the following occur: No concerns reported THRIVE Score: 0 AUDIT C Alcohol Use Questionnaire (AUDIT-C) 1. How often do you have a drink containing alcohol?: Never 3. How often do you have six or more drinks on one occasion?: Never Total Score: 0 GLENN-7 AMB Questionnaire GLENN-7 Date GLENN - 7 assessed: 08/29/24 Feeling nervous, anxious, or on edge: 0 = Not at all Not being able to stop or control worryin = Not at all Worrying too much about different things: 0 = Not at all Trouble relaxin = Not at all Being so restless that it is hard to sit still: 0 = Not at all Becoming easily annoyed or irritable: 0 = Not at all Feeling afraid as if something awful might happen: 0 = Not at all Total GLENN-7 score (0-4 normal; 5-9 mild; 10-14 moderate; 15-21 severe): 0 Source: Developed by Drs. Richard Rowe, Britt Silver, Jensen Bucio and colleagues, with an educational joaquina from [employer] (formerly [employer]). GLENN-7 Assessment Billing GLENN-7 Assessment Tool: GLENN-7 Assessment 37414 Review of Systems Const Denies body aches, Denies chills, Denies excessive sweating, Denies fatigue, Denies fever(s) and Denies headache(s) Eyes Denies blurry vision ENT Denies dysphagia, Denies vertigo, Denies dizziness, Denies headache(s), Denies hearing loss and Denies tinnitus Card Denies chest pain, Denies chest pain with activity, Denies syncope, Denies irregular heart rhythm and Denies dyspnea Resp Denies chest congestion, Denies cough, Denies hemoptysis, Denies dyspnea and Denies wheezing GI Denies abdominal pain, Denies melena, Denies hematochezia, Denies coffee ground emesis, Denies dysphagia, Denies diarrhea, Denies nausea and Denies vomiting Denies urinary frequency, Denies dysuria, Denies urinary hesitancy and Denies urinary urgency Musc Denies arthralgias, Denies limited range of motion, Denies muscle cramps and Denies muscle weakness Skin/Breast Denies rash and Denies skin ulcer Neuro Denies Abnormal speech present, Denies confusion, Denies vertigo, Denies dizziness, Denies syncope, Denies headache(s), Denies memory loss and Denies seizure-like activity Psych Denies anxiety, Denies confusion, Denies depression, Denies memory loss, Denies panic attacks and Denies paranoia Endo Denies excessive sweating, Denies fatigue, Denies flushing, Denies polydipsia and Denies polyuria Aller/Immun Denies wheezing Physical exam (Primary Care) Vital Signs: Last Vital Signs Pulse 52 08/29/24 15:24 BP 142/50 H 08/29/24 15:24 Pulse Ox 97 08/29/24 15:24 Oxygen Delivery Method Room Air 08/29/24 15:24 BMI result Body Mass Index 34.6 BMI Assessment/Plan discussion: High BMI High, discussed plan: lifestyle, weight reduction, dietary and physical activity Tobacco/Smoking Status: Tobacco use Status Tobacco use date assessed 02/25/24 08/29/24 15:07 Patient Tobacco Use Status Never used Tobacco 08/29/24 15:07 e-Cigarette/Vaping Use Never Used 08/29/24 15:07 PHQ-9: PHQ-9 Score PHQ-9: Total score 0 08/29/24 15:41 Depression Screening Interpretation: Negative Thrive Assessment: Date of Thrive Assessment Date Thrive assessed 08/29/24 08/29/24 15:07 Currently or been in a relationship where the following occur: No concerns reported Const General: cooperative, comfortable, no acute distress, alert and awake; No confusion Orientation/consciousness: oriented to person, oriented to place, patient oriented x3 and No confusion HENMT Head: Yes normocephalic Ears: external ears normal and TM's normal bilaterally Face and sinus: No sinus tenderness Mouth: Normal oral and palatal mucosa present and tongue normal Teeth and gingiva: dentition normal and gingiva normal Throat: Yes posterior oropharynx normal, Yes tonsils normal and Yes uvula midline Eyes Conjunctivae: conjunctivae normal Sclerae: sclerae normal Pupils: Equal, round and reactive pupils present EOM: EOMs intact bilaterally Direct Ophthalmoscopy: No no photophobia Neck Neck: Yes no lymphadenopathy, No tender and Yes no JVD Thyroid: Thyroid normal Carotids: no bruits Chest Chest palpation & inspection: no tenderness Resp Effort & Inspection: normal respiratory effort, no audible wheezes, not labored and no stridor Auscultation: no crackles, no rales, no rhonchi and no wheezes Cardio Jugular venous distension: no JVD Rate: regular rate, not bradycardic and not tachycardic Rhythm: regular rhythm Bruits: no carotid bruits Peripheral pulses: Peripheral pulses 2+ throughout GI Inspection: Yes normal to inspection, No abdominal wall ecchymosis and No visible herniation Palpation (GI): Soft to palpation, nontender, no guarding, not rigid and No hepatosplenomegaly present Auscultation: normoactive bowel sounds General: Yes no CVA tenderness Back/Spine/Pelvis Back: no CVA tenderness and No back tenderness Cervical Spine: cervical ROM normal Thoracic/Lumbar Spine: thoracic and lumbar spine normal to inspection, straight leg raise negative bilaterally, No thoraco-lumbar ROM limited and No lumbar spinal tenderness Skin Lesions: no lesions Rashes: no rashes Wounds: no wounds Neuro General: oriented to person, oriented to place, patient oriented x3, CN's II-XI intact bilaterally and No confusion Cranial nerves: Yes Equal, round and reactive pupils present and Yes Normal accommodation reflex present Cognition (Neuro): normal cognition Speech: No Abnormal speech present Gait exam (Neuro): Normal gait present Motor exam (neuro): 5/5 motor strength present throughout Extrem Right upper extremity: full ROM; no cyanosis Left upper extremity: full ROM; no cyanosis Right lower extremity: no edema Left lower extremity: no edema Psych Appearance: grossly normal Mental Status: mental status grossly normal Affect: normal affect Attitude: cooperative Thought process: Normal thought process present Results AMB Hemoglobin A1c AMB Hemoglobin A1c 5.8 % Last Edit by RAN Cerda on 08/29/24 15:41 Results Reviewed Results Reviewed: Laboratory Last Values Hgb A1c (Clinic) 5.8 % (4.0-6.0) 08/29/24 15:06 Coding Level of Care Code Est Pt Prev Care 40-64y(30249) Diagnoses Annual physical exam Z00.00 Essential hypertension I10 Type 2 diabetes mellitus with hyperglycemia, without long-term current use of insulin E11.65 Diabetes mellitus complication status: with hyperglycemia Diabetes mellitus terminologist insulin use: without terminologist use PAF (paroxysmal atrial fibrillation) I48.0 Positive colorectal cancer screening using Cologuard test R19.5 Status post mechanical aortic valve replacement Z95.2 Class 1 obesity E66.811 Additional Codes GLENN-7 Assessment Billing - GLENN-7 Assessment Tool: GLENN-7 Assessment 99287 ([id number]) PHQ-9 - 07794 - PHQ-9 Billing: Yes ([id number]) Assessment & Plan Assessment & Plan (1) Annual physical exam: Code(s): Z00.00 - Encounter for general adult medical examination without abnormal findings Category: Medical Plan: As per HPI (2) Essential hypertension: Code(s): I10 - Essential (primary) hypertension Category: Medical Plan: Patient's blood pressure has improved with the additional lisinopril. Will continue to monitor blood pressure at home. Will consider increasing lisinopril to 20 mg. Goal blood pressure to be below 140/90 (3) DMII (diabetes mellitus, type 2): Code(s): E11.9 - Type 2 diabetes mellitus without complications Category: Medical Qualifiers: Diabetes mellitus complication status: with hyperglycemia Diabetes mellitus terminologist insulin use: without fdc use Qualified Code(s): E11.65 - Type 2 diabetes mellitus with hyperglycemia Plan: Patient's type 2 diabetes well controlled with current dose of metformin. Today's A1c of 5.8. Goal A1c is to remain below 7.0 (4) PAF (paroxysmal atrial fibrillation): Code(s): I48.0 - Paroxysmal atrial fibrillation Category: Medical Plan: Patient continues to be anticoagulated with warfarin and rate control with metoprolol. Otherwise denies any dizziness or help palpitations. (5) Positive colorectal cancer screening using Cologuard test: Code(s): R19.5 - Other fecal abnormalities Category: Medical Plan: Patient had a positive Cologuard in 2021 unfortunately has not been able to schedule colonoscopy due to not being able to bridge Lovenox secondary to severe side effects. (6) Status post mechanical aortic valve replacement: Code(s): Z95.2 - Presence of prosthetic heart valve Category: Surgical Plan: Patient is status post mechanical aortic valve. She would like to reestablish care with Cardiology. Most recent echocardiogram done in September of 2023 showing stable functioning aortic valve. She has no overt signs of Congestive heart failure. She continues on warfarin and gets her INRs checked that a [facility] facility. (7) Class 1 obesity: Code(s): E66.811 - Obesity, class 1 Category: Medical Plan: Patient does understand her BMI is over 30 will continue working on being more physically active and adapting to better eating habits to reduce her weight. Orders: Orders Microalbumin, Random (w Creat) 08/29/24 I10 - Essential (primary) hypertension Complete Blood Count no Diff 08/29/24 I10 - Essential (primary) hypertension CA echo transthoracic complete 08/29/24 Z95.2 - Presence of prosthetic heart valve AMB Hemoglobin A1c 08/29/24 E11.65 - Type 2 diabetes mellitus with hyperglycemia Comprehensive [place]. Panel Fast 08/29/24 I10 - Essential (primary) hypertension Hemoglobin A1c 08/29/24 E11.65 - Type 2 diabetes mellitus with hyperglycemia Lipid Panel 08/29/24 E78.2 - Mixed hyperlipidemia Referrals Cardiology Referral Z95.2 - Presence of prosthetic heart valve Medications: Refilled atorvastatin 40 mg PO DAILY 90 tabs 2RF 90 days E78.2 - Mixed hyperlipidemia lisinopril 10 mg PO DAILY 90 tabs 1RF 90 days I10 - Essential (primary) hypertension metformin ER 1,000 mg (2 x 500 mg) PO BID 360 tabs 2RF 90 days E11.9 - Type 2 diabetes mellitus without complications metoprolol succinate ER 75 mg (1.5 x 50 mg) PO DAILY 135 tabs 1RF 90 days I48.0 - Paroxysmal atrial fibrillation
[2024-08-29 15:24] VITALS: BP 142/50; PULSE 52; O2SAT 97; BMI 34.6
== END 2024-08-29 15:56 | disposition home or self-care (01) ==
PROVIDERS: PCP Physician Assistant; Visit Provider Physician Assistant
DX: Z00.00 Encounter for general adult medical examination without abnormal findings (principal); E11.65 Type 2 diabetes mellitus with hyperglycemia; I48.0 Paroxysmal atrial fibrillation; I10 Essential (primary) hypertension; R19.5 Other fecal abnormalities; Z95.2 Presence of prosthetic heart valve; E66.811 Obesity, class 1

== ENCOUNTER → 2024-08-29 15:01 | Outpatient (BNVA) | payer OTHER, SELFPAY | PROVIDERS: PCP Physician Assistant; Visit Provider Physician Assistant | DX: Z00.00 Encounter for general adult medical examination without abnormal findings (principal); I10 Essential (primary) hypertension; E11.65 Type 2 diabetes mellitus with hyperglycemia; I48.0 Paroxysmal atrial fibrillation; R19.5 Other fecal abnormalities; E66.811 Obesity, class 1; Z68.34 Body mass index [BMI] 34.0-34.9, adult; Z79.01 Long term (current) use of anticoagulants; Z79.84 Long term (current) use of oral hypoglycemic drugs; Z79.899 Other long term (current) drug therapy; Z95.2 Presence of prosthetic heart valve | CPT/HCPCS: 83036; 96127 ==

== ENCOUNTER → 2024-09-23 14:48 | Outpatient (REF) | payer OTHER, SELFPAY ==
--- NOTE | 2024-09-23 14:52 | CA_ITS ---
Transthoracic Echocardiogram Patient (Last, First, Middle): Miracle Joseph, Gender: Female Date of : 1960 Age: 63 Procedure Date: 09/23/2024 Procedure Type: Transthoracic Echocardiogram Location: OP Height: 152.4 cm Weight: 81.65 kg BSA: 1.78 m2 Heart Rate: 49 bpm BP: 155 / 65 mmHg Whitesmith: SITA Referring MD: Harish Murrell PA-C Symptoms: Z95.2 - Presence of prosthetic heart valve Study Quality: Adequate w/Contrast ECG Rhythm: Bradycardia Conclusions: - Normal left ventricular cavity size. There is mildly increased left ventricular wall thickness. The left ventricular systolic function is hyperdynamic. The visually estimated ejection fraction is >70%. - Spectral Doppler is indicative of a pseudonormal filling pattern. - Elevated filling pressures. - mechanical prosthetic aortic valve is present. The prosthetic aortic valve appears to be functioning normally. The mean gradient is 12 mmHg. Findings Procedure Information Contrast agent, definity, is being given per protocol without apparent complications. Left Ventricle Normal left ventricular cavity size. There is mildly increased left ventricular wall thickness. The left ventricular systolic function is hyperdynamic. The visually estimated ejection fraction is >70%. There is no evidence of regional wall motion abnormalities. Abnormal diastolic function is noted. Spectral Doppler is indicative of a pseudonormal filling pattern. Elevated filling pressures. Right Ventricle Normal right ventricular cavity size and systolic function. Atria The left atrium is mildly dilated. The right atrium is normal in size. Aortic Valve A mechanical prosthetic aortic valve is present. The prosthetic aortic valve appears to be functioning normally. The mean gradient is 12 mmHg. Mitral Valve The mitral valve appears normal. There is mild mitral annular calcification. There is mild mitral valve regurgitation. There is no mitral valve stenosis. Pulmonic Valve The pulmonic valve is likely normal. Tricuspid Valve Normal tricuspid valve structure. There is trace tricuspid valve regurgitation. Normal right atrial pressure. There is no evidence of pulmonary hypertension. Great Vessels All visible segments of the aorta are normal in size. The visualized portions of the pulmonary artery and branches are normal. Venous The inferior vena cava is normal in size and collapses greater than 50% with inspiration. Pericardium/Pleural There is no evidence of pericardial effusion. Prior Study Comparison No significant change compared to prior study dated: 09/16/2023. Measurements 2D Linear Measurements IVSd: 1.06 0.6-0.9/0.6-1.0 cm LVIDd: 4.23 3.9-5.3/4.2-5.9 cm LVIDd Index: 2.38 2.4-3.2/2.2-3.1 cm/m2 LVIDs: 2.05 2.0-3.6 cm LVPWd: 1.32 0.7-1.1 cm LA Diam: 5.10 2.7-3.8/3.0-4.0 cm LAIDs Index: 2.87 1.5-2.3 cm/m2 LV Mass: 221.64 67-162/88-224 g LV Mass Index: 124.52 43-95/49-115 g/m2 LVOT Diam: 2.00 3.0+(-)1.3 cm 2D Systolic Function EF 4C: 72.20 >55% EF 2C: 79.00 >55% EF BiP: 75.30 >55% Mitral Valve MV VTI: 0.56 MV Pk Dimas: 1.54 MV Mn Dimas: 0.88 MV Pk Grad: 9.00 MV Mn Grad: 4.00 MV Pk E: 1.50 MV PK A: 1.37 MV Decel Time: 290.00 E/A: 1.10 E'Lateral: 6.85 E'Medial: 5.77 E/E' Med: 26.00 E/E' Lat: 21.90 PHT: 85.00 MVA PHT: 2.59 MVA Continuity: 1.84 Decel [place]: 5.18 Aortic Valve AoV Pk Dimas: 2.50 AoV Mn Dimas: 1.54 AoV VTI: 0.56 AoV Pk Grad: 25.00 Aov Mn Grad: 12.00 [place] Cont.VTI: 1.85 LVOT LVOT Pk Dimas: 1.25 LVOT Mn Dimas: 0.89 LVOT VTI: 0.33 LVOT Pk Grad: 6.00 LVOT Mn Grad: 4.00 LVOT Diam: 2.00 LVOT Area: 3.14 Diastolic Function MV Pk E: 1.50 MV Pk A: 1.37 E/A: 1.10 E'Medial: 5.77 E/E' Med: 26.00 E' Laterial: 6.85 E/E' Lat: 21.90 Right Ventricle TAPSE (mm): 20.00 TVS' Dimas: 10.00 Tricuspid Valve TR Pk Dimas: 1.94 TR Pk Grad: 15.00 RA Press: 3.00 RVSP: 18.00 Great Vessels Aorta Sinus of Valsalva: 2.60 2.0-3.5 cm Ao Asc: 2.80 2.1-3.4 cm Pulmonary Valve PV Pk Dimas: 0.98 Peak PV Grad: 4.00 Updated in Other Vendor System with Status of Final Roger Friedman MD electronically signed on 09/24/2024 4:55:26 PM with status of Final
[2024-09-23 15:36] LABS: Hematocrit 39.2 % (37.0-47.0); Hemoglobin 12.8 g/dl (12.0-16.0); Mean Corpuscular HGB Conc 32.7 g/dl (31.0-35.0); Mean Corpuscular Hemoglobin 29.4 pg (27.0-33.0); Mean Corpuscular Volume 89.9 fL (80.0-98.0); Platelet Count 242 X10*3/uL (160-400); Red Blood Count 4.36 X10*6/uL (4.20-5.50); Red Cell Distribution Width 12.8 % (11.0-16.0); White Blood Count 9.2 X10*3/uL (4.8-10.8)
[2024-09-23 15:55] LABS: Estimated Average Glucose 126 mg/dL; Total Hemoglobin (HGBA1C) 3375.5392 umol/L
[2024-09-23 16:48] LABS: Creatinine Urine 105.85 mg/dL; Microalbum/Creatinine Ratio Ur 185.1 ug/mg cr (<30)
[2024-09-23 16:53] LABS: Alanine Aminotransferase 24 U/L (0-31); Albumin Level 4.2 g/dL (3.5-5.0); Alkaline Phosphatase 99 U/L (39-117); Anion Gap 10 (12-20); Aspartate Amino Transferase 27 U/L (5-31); Bilirubin Total 0.9 mg/dL (0.0-1.0); Blood Urea Nitrogen 17 mg/dL (9-16); Calcium 9.3 mg/dL (8.4-10.2); Carbon Dioxide 28 mmol/L (22-29); Chloride 107 mmol/L (96-108); Cholesterol 179 mg/dL (<200); Estimated Glomerular Filt Rate > 60; Glucose Fasting 100 mg/dL (60-99); HDL Cholesterol 45 mg/dL (>40); LDL Cholesterol Calculated 91 mg/dL (<100); Potassium 4.8 mmol/L (3.3-5.1); Sodium 140 mmol/L (135-145); Total Protein 7.6 g/dL (6.5-8.0); Triglycerides 215 mg/dL (<150)
== END ==
LOC: HO.CARD 14:48
PROVIDERS: PCP Physician Assistant; Visit Provider Physician Assistant
DX: Z95.2 Presence of prosthetic heart valve (principal); I10 Essential (primary) hypertension; E78.2 Mixed hyperlipidemia; E11.65 Type 2 diabetes mellitus with hyperglycemia
CPT/HCPCS: 36415; 80053; 80061; 82043; 82570; 83036; 85027; 93306; Q9957

== ENCOUNTER → 2024-09-23 14:52 | Outpatient (BNV) | payer OTHER, SELFPAY | PROVIDERS: PCP Physician Assistant; Visit Provider Internal Medicine Cardiovascular Disease | DX: I34.0 Nonrheumatic mitral (valve) insufficiency (principal); Z95.2 Presence of prosthetic heart valve | CPT/HCPCS: 93306 ==

== ENCOUNTER 2025-01-05 12:46 | Outpatient (AMB) | payer OTHER, SELFPAY ==
--- NOTE | 2025-01-05 12:50 | A.OFFVIS_ITS ---
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[place]/Presence of prosthetic heart valve Intake Note: New patient dx prosthetic heart valve in 2014 c/o palpitations or fluttering at times Support Team Member Required: No Allergies amoxicillin [From Augmentin] Adverse Reaction (Intermediate, Verified 08/29/24 15:29) Rash clavulanic acid [From Augmentin] Adverse Reaction (Intermediate, Verified 08/29/24 15:29) Rash Medication List - Last Reconciled 01/05/25 by Manny Correia MD atorvastatin 40 mg PO DAILY 90 days blood pressure monitor Testing once a day as needed lisinopril 10 mg PO DAILY 90 days metformin ER 1,000 mg (2 x 500 mg) PO BID 90 days metoprolol succinate ER 75 mg (1.5 x 50 mg) PO DAILY 90 days multivitamin 1 tab PO DAILY warfarin 5 mg PO DAILY warfarin mg PO HPI Comments Details: Thank you for referring Miracle in cardiology consultation today for management of her aortic valve. Patient is a 64-year-old female who underwent aortic valve replacement in 2014 for severe aortic stenosis related to bicuspid aortic valve. This was replaced by a [place] Lu[place] 19 mm valve. Postoperatively she had atrial fibrillation. This was managed with amiodarone and subsequently currently he is managed with metoprolol. She is on lifelong oral anticoagulation therapy and currently being followed by [facility]. Her INRs mostly above 2. Patient has been doing well however more recently he is having similar symptoms to as having symptoms prior to the valve surgery. She is feeling symptoms of sinking feeling with lightheadedness and with sometimes feeling like heart rate is slowing down. She has not had actual syncopal episodes. She thinks this might be related to stress at her job. She denies any prolonged palpitation irregular heartbeat but he is unclear on her symptoms. Denies any exertional chest pain or shortness of breath and says that she remains pretty active throughout the day. Prior to her aortic valve replacement she underwent a cardiac catheterization which showed nonobstructive disease. She is currently on high-intensity statin therapy. She also has currently on diuretic therapy as well as hypertensive therapy. This is well controlled as per her. Denies any orthopnea, PND, leg edema. COUNT INCLUDES THE [facility] Medical History Family history of coronary arteriosclerosis Nephrolithiasis Basal cell carcinoma (BCC) in situ of skin Surgical History S/P AVR (aortic valve replacement) H/O lithotripsy H/O aortic valve replacement (~08/2015) Family History Father CAD (coronary artery disease) Mother Aortic valvular disorder Brother CAD (coronary artery disease) Aortic valvular disorder Sister Breast cancer CAD (coronary artery disease) Social History Housing: House Alcohol intake: never Patient Tobacco Use Status: Never used Tobacco e-Cigarette/Vaping Use: Never Used Second Hand Smoke Exposure: No service: No Current occupational status: employed Current occupation: [employer] Cognitive needs: No Hearing needs: No Vision needs: No Review of Systems Const Denies chills, Denies daytime sleepiness, Denies fatigue, Denies fever(s), Denies frequent falls, Denies poor appetite, Denies snoring, Denies stops breathing during sleep, Denies weakness, Denies weight gain and Denies weight loss Eyes Denies loss of vision ENT Denies dizziness and Denies hearing loss Card Denies chest pain, Denies claudication, Denies leg edema, Denies lightheadedness, Denies palpitations, Denies dyspnea, Denies dyspnea on exertion and Denies orthopnea Resp Denies cough, Denies excessive phlegm production, Denies dyspnea, Denies dyspnea on exertion, Denies snoring and Denies wheezing GI Denies abdominal pain, Denies hematochezia, Denies change in bowel habits, Denies nausea and Denies vomiting Denies urinary frequency and Denies dysuria Musc Denies arthralgias, Denies muscle weakness, Denies numbness and Denies other (frequent falls) Skin/Breast Denies nail changes and Denies rash Neuro Denies Abnormal speech present, Denies dizziness, Denies frequent falls, Denies loss of vision, Denies memory loss, Denies numbness and Denies weakness Psych Denies depression and Denies memory loss Endo Denies fatigue and Denies palpitations Elias/Lymph Reports easy bruising and Reports other (anemia) Aller/Immun Denies wheezing Physical Exam Vital Signs: Last Vital Signs Pulse 57 01/05/25 12:51 BP 120/78 01/05/25 12:51 BMI result Body Mass Index 33.7 Const General: cooperative, comfortable, no acute distress, alert, awake, Physically active and well groomed Nutritional Appearance: obese Orientation/consciousness: patient oriented x3 Limitations: no limitations HEENT Head: Yes normocephalic and Yes atraumatic Neck Neck: Yes trachea midline, Yes supple and Yes no JVD Chest Chest palpation & inspection: other (Well-healed sternotomy scar) Resp Effort & Inspection: normal respiratory effort Auscultation: clear to auscultation bilaterally Cardio Jugular venous distension: no JVD Palpation: normal PMI Rate: regular rate Rhythm: regular rhythm Heart sounds: S1 normal heart sound present, Clicking heart sound present (Tensas closing click of Saint Lu[place] aortic valve), no gallops, no murmurs and no rubs GI Auscultation: normal bowel sounds Skin General skin exam: no rashes or lesions noted Neuro General: patient oriented x3 and no focal motor deficits Speech: No Abnormal speech present Extrem General: Yes no clubbing, cyanosis or edema Psych Appearance: grossly normal Office Procedures EKG Details: EKG shows normal sinus rhythm with sinus arrhythmia with poor R-wave progression most likely lead placement 89873-[id number], Complete Assessment & Plan Assessment & Plan (1) Status post mechanical aortic valve replacement: Code(s): Z95.2 - Presence of prosthetic heart valve Category: Surgical Plan: Status post [place] Lu[place] aortic valve replacement for bicuspid aortic valve. Most recent echocardiogram 3 months ago she was normal function of the valve with mean gradient of 12 mm Hg. She was no symptoms related to it. We discussed about genetic component associated with bicuspid aortic valve. She does not have any kids and all her siblings have been screened for the same. Continue warfarin therapy with target INR between 2 and 3 as per guidelines. SBE prophylaxis as per ACC/aha guidelines. (2) PAF (paroxysmal atrial fibrillation): Code(s): I48.0 - Paroxysmal atrial fibrillation Category: Medical Plan: Paroxysmal atrial fibrillation postoperatively. This is usually less likely to recur although she has multiple risk factors for the same. Continue monitor clinically. Will suggest a event monitor because of her symptoms. Continue metoprolol therapy for now. Already on warfarin therapy although this is for aortic valve replacement. No change in therapy no indication for antiarrhythmic drug therapy is recommended. Continue aggressive blood pressure control. (3) Lightheadedness: Code(s): R42 - Dizziness and giddiness Plan: Intermittent symptoms lightheadedness and she says symptoms are similar to what she had prior to her valve replacement. At this point time these are unlikely to be related to valve function in the valve function in both clinically and by recent echocardiogram appears to be within normal limits. Arrhythmias unlikely and also AV conduction abnormalities unlikely. Will suggest a 30 day event monitor to further assess for the same. Will follow up in the clinic in 10 months time after echocardiogram. Thank you for allowing me to partake in her care Coding Level of Care Code New Pt Level 4 (40680) Complex EM visit Add On G2211 Diagnoses Status post mechanical aortic valve replacement Z95.2 PAF (paroxysmal atrial fibrillation) I48.0 Lightheadedness R42 CPT Codes EKG - CPT: 24949-[id number], Complete ([id number])
[2025-01-05 12:51] VITALS: BP 120/78; PULSE 57; BMI 33.7
--- OUTSIDE RECORDS SUMMARY | 2025-01-05 15:17 | XMS_ITS | Encounter Summary ---
Author Organization [facility] Address [address] [place] [address] Care Team Providers Care Microsoft Exchange Architect Name Role Phone Roxanne Wooten MD Primary Care Provider Agustinava Nora Rolon MD Primary Care Provider Unavailab donald [facility] Primary Care Provider UnavailVijaya Walsh MD Primary Care Provider [phone] Harish Murrell Primary Care Provider Unavailab le Encounter Details Date Type Department Care Team Description 07/17/2017 Pt. Non Urgent Medical Question Cardiology - [address] [address] Ning Spivey MD [address] [place] [address] [id number] Social History Tobacco Use Types Packs/Day Years Used Date Smoking Tobacco: Never Smokeless Tobacco: Never Alcohol Use Standard Drinks/Week Comments No 0 (1 standard drink = 0.6 oz pur e alcohol) Sex Assigned at Date Recorded Not on file Job Start Date Occupation Industry Not on file Not on file Not on file documented as of this encounter Progress Notes * Kate Coe L.P.N. - 07/17/2017 3:16 PM ESTFrom: Miracle Joseph To: Ning Spivey MD Sent: 07/17/2017 2:48 PM EST Subject: Question re: procedure Surgeon is leaving me on the Warfarin for my 07/27/17 ureterscopy and I will take your recommended high dose of antibiotic 1 hour before procedure as you instructed. My question is: they suggested I hold the low dose aspirin so that I'm not taking two blood thinnrrs. How long is it safe for me to go without low dose aspirin ? I definitely don't want to risk heartcomplication. Let me know when to when I could safely skip it, if at all. Thanks again. Miracle Joseph documented in this encounter Plan of Treatment Not on file documented as of this encounter Visit Diagnoses Not on filedocumented in this encounter Care Teams Microsoft Exchange Architect Relationship Specialty Start Date End Date Roxanne Wooten MD PCP - General Internal Medicine 01/20/12 04/17/21 Nora Michelle MD PCP - General Internal Medicine 04/18/21 06/10/21 [facility] PCP - General Internal Medicine 06/11/21 02/22/23 Vijaya Tran MD [address] [place] [address] PCP - General Internal Medicine 02/23/23 11/05/23 Harish Murrell [address] [place] [address] PCP - General Internal Medicine 11/06/23 documented as of this encounter
--- OUTSIDE RECORDS SUMMARY | 2025-01-05 15:18 | XMS_ITS | Encounter Summary ---
Author Organization [facility] Address [address] [place] [address] Care Team Providers Care Negative Developer Name Role Phone Roxanne Wooten MD Primary Care Provider Nora Peres MD Primary Care Provider Unavailab [facility], [facility] Primary Care Provider UnavailVijaya Walsh MD Primary Care Provider [phone] Harish Murrell Primary Care Provider Unavail le Encounter Details Date Type Department Care Team Description 01/23/2018 Pt. Non Urgent Medic al Question Adult Medicine [address] [address] Roxanne Wooten MD Social History Tobacco Use Types Packs/Day Years Used Date Smoking Tobacco: Never Smokeless Tobacco: Never Alcohol Use Standard Drinks/Week Comments No 0 (1 standard drink = 0.6 oz pur e alcohol) Sex Assigned at Date Recorded Not on file Job Start Date Occupation Industry Not on file Not on file Not on file documented as of this encounter Progress Notes * Shara Danielson M.A. - 01/23/2018 3:11 PM EDTFrom: Miracle Joseph To: Roxanne Wooten MD Sent: 01/23/2018 2:34 PM EDT Subject: Script & appointment Actually in addition to my previous reply/message re: Atorvastatin & appointment needed for renewal..:I will need more than a couple of months renewed. I did make an appointment but the earliest she had available was in June (which I took) !! Let me know if renewal will be done and if this is sufficient please. Thanks. documented in this encounter Plan of Treatment Not on file documented as of this encounter Visit Diagnoses Not on filedocumented in this encounter Care Teams Negative Developer Relationship Specialty Start Date End Date Roxanne Wooten MD PCP - General Internal Medicine 01/20/12 04/17/21 Nora Michelle MD PCP - General Internal Medicine 04/18/21 06/10/21 [facility] PCP - General Internal Medicine 06/11/21 02/22/23 Vijaya Tran MD [address] [place] [address] PCP - General Internal Medicine 02/23/23 11/05/23 Harish Murrell [address] [place] [address] PCP - General Internal Medicine 11/06/23 documented as of this encounter
--- OUTSIDE RECORDS SUMMARY | 2025-01-05 15:18 | XMS_ITS | Encounter Summary ---
Author Organization [facility] Address [address] [place] [address] Care Team Providers Care Metal Tank Erector Name Role Phone Roxanne Wooten MD Primary Care Provider Agustinava Nora Rolon MD Primary Care Provider Unavailab donald [facility] Pcp Primary Care Provider UnavailVijaya Walsh MD Primary Care Provider [phone] Harish Murrell Primary Care Provider Unavailab bennett Encounter Details Date Type Department Care Team Description 03/03/2018 Orders Only General Surgery - [address] [phone] Andrzej Sampson MD [address] [place] [address] [phone] Microcalcifications of the breast (Primary Dx) Social History Tobacco Use Types Packs/Day Years Used Date Smoking Tobacco: Never Smokeless Tobacco: Never Alcohol Use Standard Drinks/Week Comments No 0 (1 standard drink = 0.6 oz pur e alcohol) Sex Assigned at Date Recorded Not on file Job Start Date Occupation Industry Not on file Not on file Not on file documented as of this encounter Plan of Treatment Not on file documented as of this encounter Visit Diagnoses Diagnosis Microcalcifications of the breast- Primary Mammographic microcalcification documented in this encounter Care Teams Metal Tank Erector Relationship Specialty Start Date End Date Roxanne Wooten MD PCP - General Internal Medicine 01/20/12 04/17/21 Nora Michelle MD PCP - General Internal Medicine 04/18/21 06/10/21 [facility], Pcp PCP - General Internal Medicine 06/11/21 02/22/23 Vijaya Tran MD [address] [place] [address] PCP - General Internal Medicine 02/23/23 11/05/23 Harish Murrell [address] [place] [phone] PCP - General Internal Medicine 11/06/23 documented as of this encounter
--- OUTSIDE RECORDS SUMMARY | 2025-01-05 15:18 | XMS_ITS | Encounter Summary ---
Author Organization [facility] Address [address] [place] [address] Care Team Providers Care Mathematics Faculty Member Name Role Phone Roxanne Wooten MD Primary Care Provider Unava ilNora Rodríguez MD Primary Care Provider Unavailab donald [facility], Pcp Primary Care Provider Unavailabl Vijaya Maldonado MD Primary Care Provider [phone] Harish Murrell Primary Care Provider Unavailab bennett Encounter Details Date Type Department Care Team Description 10/12/2017 Lumber Carrier Report Medical Records [address] [place] [phone] Elisa Andrew PA Social History Tobacco Use Types Packs/Day Years [...] on filedocumented in this encounter Care Teams Mathematics Faculty Member Relationship Specialty Start Date End Date Roxanne Wooten MD PCP - General Internal Medicine 01/20/12 04/17/21 Nora Michelle MD PCP - General Internal Medicine 04/18/21 06/10/21 [facility], Pcp PCP - General Internal Medicine 06/11/21 02/22/23 Vijaya Tran MD [address] [place] [address] PCP - General Internal Medicine 02/23/23 11/05/23 Harish Murrell [address] [place] [address] PCP - General Internal Medicine 11/06/23 documented as of this encounter
--- OUTSIDE RECORDS SUMMARY | 2025-01-05 15:18 | XMS_ITS | Encounter Summary ---
Author Organization [facility] Address [address] [place] [address] Care Team Providers Care Mobile Equipment Servicer Name Role Phone Roxanne Wooten MD Primary Care Provider Unava ilNora Rodríguez MD Primary Care Provider Unavailab donald [facility], Pcp Primary Care Provider Unavailabl Vijaya Maldonado MD Primary Care Provider [phone] Harish Murrell Primary Care Provider Unavailab bennett Encounter Details Date Type Department Care Team Description 08/03/2017 Field Counsel Report Medical Records [address] [place] [id number] [facility] Social History Tobacco Use Types Packs/Day Years [...] on filedocumented in this encounter Care Teams Mobile Equipment Servicer Relationship Specialty Start Date End Date Roxanne Wooten MD PCP - General Internal Medicine 01/20/12 04/17/21 Nora Michelle MD PCP - General Internal Medicine 04/18/21 06/10/21 [facility], Pcp PCP - General Internal Medicine 06/11/21 02/22/23 Vijaya Tran MD [address] [place] [address] PCP - General Internal Medicine 02/23/23 11/05/23 Harish Murrell [address] [place] [address] PCP - General Internal Medicine 11/06/23 documented as of this encounter
--- OUTSIDE RECORDS SUMMARY | 2025-01-05 15:18 | XMS_ITS | Encounter Summary ---
Author Organization [facility] Address [address] [place] [address] Care Team Providers Care Zoogler Name Role Phone Roxanne Wooten MD Primary Care Provider Unava Nora Rolon MD Primary Care Provider Unavailab bennett [facility], Pcp Primary Care Provider UnavailVijaya Walsh MD Primary Care Provider [phone] Harish Murrell Primary Care Provider Unavailab bennett Encounter Details Date Type Department Care Team Description 07/29/2017 Release of Information Medical Records [address] [place] [id number] Abstract, Provider Social History Tobacco Use Types Packs/Day Years [...] on filedocumented in this encounter Care Teams Zoogler Relationship Specialty Start Date End Date Roxanne Wooten MD PCP - General Internal Medicine 01/20/12 04/17/21 Nora Michelle MD PCP - General Internal Medicine 04/18/21 06/10/21 [facility], [facility] PCP - General Internal Medicine 06/11/21 02/22/23 Vijaya Tran MD [address] [place] [address] PCP - General Internal Medicine 02/23/23 11/05/23 Harish Murrell [address] [place] [address] PCP - General Internal Medicine 11/06/23 documented as of this encounter
--- OUTSIDE RECORDS SUMMARY | 2025-01-05 15:18 | XMS_ITS | Encounter Summary ---
Author Organization [facility] Address [address] [place] [address] Care Team Providers Care Lime Puller Name Role Phone Roxanne Wooten MD Primary Care Provider Nora Peres MD Primary Care Provider Unavailab donald [facility] Primary Care Provider UnavailVijaya Walsh MD Primary Care Provider [phone] Harish Murrell Primary Care Provider Unavail Encounter Details Date Type Department Care Team Description 07/01/2017 Pt. Non Urgent Medical Question Cardiology - [address] [address] Ning Spivey MD [address] [place] [address] [phone] Social History Tobacco Use Types Packs/Day Years [...] Progress Notes * Kate Coe L.P.N. - 07/01/2017 1:45 PM EDTFrom: Miracle Joseph To: Ning Spivey MD Sent: 07/01/2017 11:59 AM EDT Subject: information needed Hi, Will be undergoing a ureteroscopy very soon and need to know...I had an artificial heart valve put in 08/2015 and need to know if its standard procedure to go on an antibiotic before surgery as a precaution. (I do take one before dental procedures). Also, the doctor performing the scopy will be leaving me on Warfarin thoughout the procedure...I'm assuming this is ok. But the PA I did see today requested I check with my other doctors re: antibiotic being needed ? Thanks ! documented in this encounter Plan of Treatment Not on file documented as of this encounter Visit Diagnoses Not on filedocumented in this encounter Care Teams Lime Puller Relationship Specialty Start Date End Date Roxanne Wooten MD PCP - General Internal Medicine 01/20/12 04/17/21 Nora Michelle MD PCP - General Internal Medicine 04/18/21 06/10/21 [facility] PCP - General Internal Medicine 06/11/21 02/22/23 Vijaya Tran MD [address] [place] [address] PCP - General Internal Medicine 02/23/23 11/05/23 Harish Murrell [address] [place] [address] PCP - General Internal Medicine 11/06/23 documented as of this encounter
--- OUTSIDE RECORDS SUMMARY | 2025-01-05 15:18 | XMS_ITS | Encounter Summary ---
Author Organization [facility] Address [address] [place] [address] Care Team Providers Care Hand Fur Cleaner Name Role Phone [facility], Pcp Primary Care Provider UnavailVijaya Walsh MD Primary Care Provider [phone] Harish Murrell Primary Care Provider Unavailab le Encounter Details Date Type Department Care Team Description 12/31/2021 Plater Printed Circuit Board Panels Report Medical Records [address] [place] [phone] Jose Manuel Barrett MD Social History Tobacco Use Types Packs/Day [...] on filedocumented in this encounter Care Teams Hand Fur Cleaner Relationship Specialty Start Date End Date Community, Pcp PCP - General Internal Medicine 06/11/21 02/22/23 Vijaya Tran MD [address] [place] [address] [phone] PCP - General Internal Medicine 02/23/23 11/05/23 Harish Murrell [address] [place] [address] PCP - General Internal Medicine 11/06/23 documented as of this encounter
--- OUTSIDE RECORDS SUMMARY | 2025-01-05 15:19 | XMS_ITS | Encounter Summary ---
Author Organization [facility] Address [address] [place] [address] Care Team Providers Care Consulting Services Manager Name Role Phone Roxanne Wooten MD Primary Care Provider Unava ilNora Rodríguez MD Primary Care Provider Unavailab donald [facility], Pcp Primary Care Provider Unavailabl Vijaya Maldonado MD Primary Care Provider [phone] Harish Murrell Primary Care Provider Unavailab bennett Encounter Details Date Type Department Care Team Description 12/03/2016 Pain Management Nurse Practitioner Report Medical Records [address] [place] [address] Merlyn Chaudhari PA-C Social History Tobacco Use Types Packs/Day Years [...] on filedocumented in this encounter Care Teams Consulting Services Manager Relationship Specialty Start Date End Date Roxanne Wooten MD PCP - General Internal Medicine 01/20/12 04/17/21 Nora Michelle MD PCP - General Internal Medicine 04/18/21 06/10/21 [facility], Pcp PCP - General Internal Medicine 06/11/21 02/22/23 Vijaya Tran MD [address] [place] [address] PCP - General Internal Medicine 02/23/23 11/05/23 Harish Murrell [address] [place] [address] PCP - General Internal Medicine 11/06/23 documented as of this encounter
--- OUTSIDE RECORDS SUMMARY | 2025-01-05 15:19 | XMS_ITS | Encounter Summary ---
Author Organization [facility] Address [address] [place] [address] Care Team Providers Care Staff Genetic Counselor Name Role Phone Roxanne Wooten MD Primary Care Provider Unava ilNora Rodríguez MD Primary Care Provider Unavailab donald [facility], Pcp Primary Care Provider UnavailVijaya Walsh MD Primary Care Provider [phone] Harish Murrell Primary Care Provider Unavailab bennett Encounter Details Date Type Department Care Team Description 08/30/2015 Remnants Cutter Report Medical Records [address] [place] [id number] [place] [facility] Social History Tobacco Use Types Packs/Day Years [...] on filedocumented in this encounter Care Teams Staff Genetic Counselor Relationship Specialty Start Date End Date Roxanne Wooten MD PCP - General Internal Medicine 01/20/12 04/17/21 Nora Michelle MD PCP - General Internal Medicine 04/18/21 06/10/21 [facility], Pcp PCP - General Internal Medicine 06/11/21 02/22/23 Vijaya Tran MD [address] [place] [address] PCP - General Internal Medicine 02/23/23 11/05/23 Harish Murrell [address] [place] [address] PCP - General Internal Medicine 11/06/23 documented as of this encounter
--- OUTSIDE RECORDS SUMMARY | 2025-01-05 15:19 | XMS_ITS | Encounter Summary ---
Author Organization [facility] Address [address] [place] [address] Care Team Providers Care Group Worker Name Role Phone Roxanne Wooten MD Primary Care Provider Agustinava Nora Rolon MD Primary Care Provider Unavailab [facility] Primary Care Provider UnavailVijaya Walsh MD Primary Care Provider [phone] Harish Murrell Primary Care Provider Unavail le Encounter Details Date Type Department Care Team Description 07/30/2015 Pt. Non Urgent Medic al Question Adult Medicine [address] [address] Roxanne Wooten MD Social History Tobacco Use [...] as of this encounter Progress Notes * Roxanne Wooten MD - 07/30/2015 10:27 AM EST See my reply to pt. I will forward to AC nurse to answer pt's questions about warfarin. * Katrina Romero M.A. - 07/30/2015 9:48 AM ESTFrom: Miracle Joseph To: Roxanne Wooten MD Sent: 07/30/2015 9:07 AM EST Subject: INFORMATION Wondering...if going on a blood thinner after the surgery is something they will instruct me about at the hospital OR do I have to talk to someone at [facility] about that. Have questions, concerns about going on it and I didn't know if you have someone at [facility] who handles that and could tell me more about being on it. Thanks, Miracle documented in this encounter Plan of Treatment Not on file documented as of this encounter Visit Diagnoses Not on filedocumented in this encounter Care Teams Group Worker Relationship Specialty Start Date End Date Roxanne Wooten MD PCP - General Internal Medicine 01/20/12 04/17/21 Nora Michelle MD PCP - General Internal Medicine 04/18/21 06/10/21 [facility] Pcp PCP - General Internal Medicine 06/11/21 02/22/23 Vijaya Tran MD [address] [place] [address] PCP - General Internal Medicine 02/23/23 11/05/23 Harish Murrell [address] [place] [address] PCP - General Internal Medicine 11/06/23 documented as of this encounter
--- OUTSIDE RECORDS SUMMARY | 2025-01-05 15:19 | XMS_ITS | Encounter Summary ---
Author Organization [facility] Address [address] [place] [address] Care Team Providers Care Front Desk Auxiliary Name Role Phone Roxanne Wooten MD Primary Care Provider Unava Nora Rolon MD Primary Care Provider Unavailab le Replaced By [facility], [facility] Primary Care Provider Unavailabl Vijaya Maldonado MD Primary Care Provider [phone] Harish Murrell Primary Care Provider Unavailab le Reason for Visit * Reason Onset Date Comments Medication 08/15/2015 Encounter Details Date Type Department Care Team Description 08/15/2015 Telephone Adult Medicine [address] [address] Roxanne Wooten MD Medication Social History Tobacco Use Types Packs/Day Years Used Date Smoking Tobacco: Never Smokeless Tobacco: Never Alcohol Use Standard Drinks/Week Comments No 0 (1 standard drink = 0.6 oz pur e alcohol) Sex Assigned at Date Recorded Not on file Job Start Date Occupation Industry Not on file Not on file Not on file documented as of this encounter Miscellaneous Notes * Telephone Encounter - Neda Bustillo M.A. - 08/15/2015 2:41 PM EST Manually faxed to pharmacy This was placed in ppu on 08/13/15. (pt did request it be faxed) Message left for patient to return my call. * Telephone Encounter - Jamila Singer - 08/15/2015 1:09 PM EST What is the name of the medication patient is having a problem with?: lorazepam (ATIVAN) 0.5 MG tablet What is the problem?: pt is requesting this medication to be faxed to [facility], pt is unable to come in. She is also having heart surgery on 08/16/15, please call pt to let her know if this was done Is the patient calling about the problem? YES If the patient is not the caller who is? Is this a NEW medication?: NO How long has the patient been taking this medication? Who prescribed this medication for the patient? Sylvia Callejas Who is patients PCP?: Roxanne Wooten Payor: [employer] [facility] [employer] / Plan: [employer] $20 [employer] / Product Type: HMO [id number] documented in this encounter Plan of Treatment Not on file documented as of this encounter Visit Diagnoses Not on filedocumented in this encounter Care Teams Front Desk Auxiliary Relationship Specialty Start Date End Date Roxanne Wooten MD PCP - General Internal Medicine 01/20/12 04/17/21 Nora Michelle MD PCP - General Internal Medicine 04/18/21 06/10/21 [facility] PCP - General Internal Medicine 06/11/21 02/22/23 Vijaya Tran MD [address] [place] [address] PCP - General Internal Medicine 02/23/23 11/05/23 Harish Murrell [address] [place] [address] PCP - General Internal Medicine 11/06/23 documented as of this encounter
--- OUTSIDE RECORDS SUMMARY | 2025-01-05 15:19 | XMS_ITS | Encounter Summary ---
Author Organization [facility] Address [address] [place] [address] Care Team Providers Care Legal Biller Name Role Phone Roxanne Wooten MD Primary Care Provider Unava ilNora Rodríguez MD Primary Care Provider Unavailab donald [facility] Pcp Primary Care Provider UnavailVijaya Walsh MD Primary Care Provider [phone] Harish Murrell Primary Care Provider Unavailab le Encounter Details Date Type Department Care Team Description 09/09/2015 Refill Adult Medicine [address] [address] Sylvia Callejas PA-C [address] [place] [address] Social History Tobacco Use Types Packs/Day Years [...] on filedocumented in this encounter Care Teams Legal Biller Relationship Specialty Start Date End Date Roxanne Wooten MD PCP - General Internal Medicine 01/20/12 04/17/21 Nora Michelle MD PCP - General Internal Medicine 04/18/21 06/10/21 [facility], Pcp PCP - General Internal Medicine 06/11/21 02/22/23 Vijaya Tran MD [address] [place] [address] PCP - General Internal Medicine 02/23/23 11/05/23 Harish Murrell [address] [place] [address] PCP - General Internal Medicine 11/06/23 documented as of this encounter
--- OUTSIDE RECORDS SUMMARY | 2025-01-05 15:19 | XMS_ITS | Encounter Summary ---
Author Organization [facility] Address [address] [place] [address] Care Team Providers Care Welfare Aide Name Role Phone Roxanne Wooten MD Primary Care Provider Unava ilNora Rodríguez MD Primary Care Provider Unavailab [facility], Pcp Primary Care Provider Unavailabl Vijaya Maldonado MD Primary Care Provider [phone] Harish Murrell Primary Care Provider Unavailab le Reason for Visit * Reason Onset Date Comments Quality Outreach--Diabetes 12/01/2013 Encounter Details Date Type Department Care Team Description 12/01/2013 Telephone Adult [address] [address] Roxanne Wooten MD Quality Outreach--Diabetes Social History Tobacco Use Types Packs/Day Years [...] encounter Miscellaneous Notes * Telephone Encounter - Cari Briceno R.N. - 12/01/2013 8:51 AM EDT DM Outreach Pt was called back for continued diabetes outreach. I left a message to call me back at [phone]. PLAN Pt does not have a DM partnership: Await call back Or Retry in two weeks documented in this encounter Plan of Treatment Not on file documented as of this encounter Visit Diagnoses Not on filedocumented in this encounter Care Teams Welfare Aide Relationship Specialty Start Date End Date Roxanne Wooten MD PCP - General Internal Medicine 01/20/12 04/17/21 Nora Michelle MD PCP - General Internal Medicine 04/18/21 06/10/21 [facility] [place] [place] PCP - General Internal Medicine 06/11/21 02/22/23 [place] [address] PCP - General Internal Medicine 02/23/23 11/05/23 Harish Murrell [address] [place] [address] PCP - General Internal Medicine 11/06/23 documented as of this encounter
--- OUTSIDE RECORDS SUMMARY | 2025-01-05 15:19 | XMS_ITS | Encounter Summary ---
Author Organization [facility] Address [address] [place] [address] Care Team Providers Care Healthcare Network Pricing Consultant Name Role Phone Roxanne Wooten MD Primary Care Provider Agustinava Nora Rolon MD Primary Care Provider Unavailab [facility], [facility] Primary Care Provider UnavailVijaya Walsh MD Primary Care Provider [phone] Harish Murrell Primary Care Provider Unavailab le Encounter Details Date Type Department Care Team Description 07/26/2015 Pt. Non Urgent Medical Question Cardiology - [address] [address] Ning Spivey MD [address] [place] [phone] Social History Tobacco Use Types Packs/Day Years [...] Progress Notes * Kate Coe L.P.N. - 07/26/2015 2:10 PM ESTFrom: Miracle Joseph To: Ning Spivey MD Sent: 07/26/2015 2:09 PM EST Subject: important question Having cardiac catheterization done 08/08. Having cat scan done 07/31 of chest area due to shadow seen. Will this suffice as chest xray you said I needed done week before cath OR does it have to be separate xray ? Office called and said orders were out there for xrays and labs but I don't see anything yet ? I will have labs done same day 07/31 for cath that you said needed to be done... Thanks documented in this encounter Plan of Treatment Not on file documented as of this encounter Visit Diagnoses Not on filedocumented in this encounter Care Teams Healthcare Network Pricing Consultant Relationship Specialty Start Date End Date Roxanne Wooten MD PCP - General Internal Medicine 01/20/12 04/17/21 Nora Michelle MD PCP - General Internal Medicine 04/18/21 06/10/21 [facility], Pcp PCP - General Internal Medicine 06/11/21 02/22/23 Vijaya Tran MD [address] [place] [address] PCP - General Internal Medicine 02/23/23 11/05/23 Harish Murrell [address] [place] [address] PCP - General Internal Medicine 11/06/23 documented as of this encounter
--- OUTSIDE RECORDS SUMMARY | 2025-01-05 15:19 | XMS_ITS | Encounter Summary ---
Author Organization [facility] Address [address] [place] [address] Care Team Providers Care Director Public Policy Name Role Phone Roxanne Wooten MD Primary Care Provider Unava ilNora Rodríguez MD Primary Care Provider Unavailab donald [facility], Pcp Primary Care Provider UnavailVijaya Walsh MD Primary Care Provider [phone] Harish Murrell Primary Care Provider Unavailab bennett Encounter Details Date Type Department Care Team Description 08/16/2015 [facility] Medical Records [address] [place] [address] Deven Sheth MD Social History Tobacco Use Types Packs/Day [...] on filedocumented in this encounter Care Teams Director Public Policy Relationship Specialty Start Date End Date Roxanne Wooten MD PCP - General Internal Medicine 01/20/12 04/17/21 Nora Michelle MD PCP - General Internal Medicine 04/18/21 06/10/21 [facility], Pcp PCP - General Internal Medicine 06/11/21 02/22/23 Vijaya Tran MD [address] [place] [address] PCP - General Internal Medicine 02/23/23 11/05/23 Harish Murrell [address] [place] [address] PCP - General Internal Medicine 11/06/23 documented as of this encounter
--- OUTSIDE RECORDS SUMMARY | 2025-01-05 15:19 | XMS_ITS | Encounter Summary ---
Author Organization [facility] Address [address] [place] [address] Care Team Providers Care Draw Bench Operator Helper Name Role Phone Roxanne Wooten MD Primary Care Provider Unava Nora Rolon MD Primary Care Provider Unavailab bennett [facility], Pcp Primary Care Provider UnavailVijaya Walsh MD Primary Care Provider [phone] Harish Murrell Primary Care Provider Unavailab bennett Encounter Details Date Type Department Care Team Description 08/08/2015 Release of Information Medical Records [address] [place] [address] Abstract, Provider Social History Tobacco Use Types [...] on filedocumented in this encounter Care Teams Draw Bench Operator Helper Relationship Specialty Start Date End Date Roxanne Wooten MD PCP - General Internal Medicine 01/20/12 04/17/21 Nora Michelle MD PCP - General Internal Medicine 04/18/21 06/10/21 [facility], [facility] PCP - General Internal Medicine 06/11/21 02/22/23 Vijaya Tran MD [address] [place] [address] PCP - General Internal Medicine 02/23/23 11/05/23 Harish Murrell [address] [place] [address] PCP - General Internal Medicine 11/06/23 documented as of this encounter
--- OUTSIDE RECORDS SUMMARY | 2025-01-05 15:19 | XMS_ITS | Encounter Summary ---
Author Organization [facility] Address [address] [place] [address] Care Team Providers Care Seismic Observer Name Role Phone Roxanne Wooten MD Primary Care Provider Unava ilNora Rodríguez MD Primary Care Provider Unavailab donald [facility], Pcp Primary Care Provider Unavailabl Vijaya Maldonado MD Primary Care Provider [phone] Harish Murrell Primary Care Provider Unavailab bennett Encounter Details Date Type Department Care Team Description 04/13/2019 Instrument Inspector Report Medical Records [address] [place] [address] Kate Oviedo MD Social History Tobacco Use Types Packs/Day [...] on filedocumented in this encounter Care Teams Seismic Observer Relationship Specialty Start Date End Date Roxanne Wooten MD PCP - General Internal Medicine 01/20/12 04/17/21 Nora Michelle MD PCP - General Internal Medicine 04/18/21 06/10/21 [facility], Pcp PCP - General Internal Medicine 06/11/21 02/22/23 Vijaya Tran MD [address] [place] [address] [place] [address] PCP - General Internal Medicine 02/23/23 11/05/23 Harish Murrell [address] [place] [address] PCP - General Internal Medicine 11/06/23 documented as of this encounter
--- OUTSIDE RECORDS SUMMARY | 2025-01-05 15:19 | XMS_ITS | Encounter Summary ---
Author Organization [facility] Address [address] [place] [address] Care Team Providers Care Science Consultant Name Role Phone Roxanne Wooten MD Primary Care Provider Unava Nora Rolon MD Primary Care Provider Unavailab [facility] Primary Care Provider UnavailVijaya Walsh MD Primary Care Provider Harish Murrell Primary Care Provider Unavailab le Encounter Details Date Type Department Care Team Description 07/25/2019 Refill Adult Medicine [address] [address] Roxanne Wooten MD Social History Tobacco Use [...] encounter Miscellaneous Notes * Telephone Encounter - Katrina Romero M.A. - 07/25/2019 1:20 PM EST Keyshawn 04/19/2019 F/u appt 10/13/2019 Lab Results Component Value Date HGBA1C 7.5 04/16/2019 MALBUR 288.6 08/16/2018 MALBCR 327.9 08/16/2018 CHOL 161 04/16/2019 LDL 84 04/16/2019 HDL 46 04/16/2019 TRIG 157 04/16/2019 GLU 130 01/08/2019 CREAT 0.59 01/08/2019 documented in this encounter Plan of Treatment Not on file documented as of this encounter Visit Diagnoses Not on filedocumented in this encounter Care Teams Science Consultant Relationship Specialty Start Date End Date Roxanne Wooten MD PCP - General Internal Medicine 01/20/12 04/17/21 Nora Michelle MD PCP - General Internal Medicine 04/18/21 06/10/21 [facility], [facility] PCP - General Internal Medicine 06/11/21 02/22/23 Vijaya Tran MD [address] [place] [address] PCP - General Internal Medicine 02/23/23 11/05/23 Harish Murrell [address] [place] [address] PCP - General Internal Medicine 11/06/23 documented as of this encounter
--- OUTSIDE RECORDS SUMMARY | 2025-01-05 15:19 | XMS_ITS | Encounter Summary ---
Author Organization [facility] Address [address] [place] [address] Care Team Providers Care Vp Outcomes Name Role Phone Roxanne Wooten MD Primary Care Provider Unava Nora Rolon MD Primary Care Provider Unavailab le [facility], Pcp Primary Care Provider Unavailabl Vijaya Maldonado MD Primary Care Provider Harish Murrell Primary Care Provider Unavailab le Reason for Visit * Reason Comments E-prescribe Rx Request Encounter Details Date Type Department Care Team Description 01/01/2021 Refill Adult Medicine [address] [address] Miryam Urias PA [address] [place] [address] [phone] E-prescribe Rx Request Social History Tobacco Use Types Packs/Day Years Used Date Smoking Tobacco: Never Smokeless Tobacco: Never Alcohol Use Standard Drinks/Week Comments No 0 (1 standard drink = 0.6 oz pur e alcohol) Sex Assigned at Date Recorded Not on file Job Start Date Occupation Industry Not on file Not on file Not on file COVID-19 Exposure Response Date Recorded In the last month, have you been in contact with someone who was confirmed or suspected to have Coronavirus / COVID-19? No / Unsure 12/23/2020 11:54 AM EDT documented as of this encounter Miscellaneous Notes * Telephone Encounter - Tata Ferrera C.M.A - 01/05/2021 8:19 AM EDT Lab Results Component Value Date CHOL 182 09/05/2020 LDL 88 09/05/2020 HDL 48 09/05/2020 TRIG 232 09/05/2020 SGOT 31 08/16/2018 SGPT 29 08/16/2018 * Telephone Encounter - Justin Bergman - 01/03/2021 1:00 PM EDT Patient would like script to be: E-PRESCRIBED/FAXED TO PHARMACY WHEN WAS THE PATIENT'S LAST APPOINTMENT IN ADULT MEDICINE? 01/02/2021 WHEN WAS THE LAST TIME THE PATIENT SAW THEIR PCP? 09/17/2020 Does patient have an upcoming appointment? No-patient refused appointment, will call back to book appointment (THE MEDICATION REQUESTED IS ON THE MED LIST ABOVE) All of the medications requested were on the CURRENT MEDS list Did you check the Pharmacy information above?: YES Patient wants: 90 -day supply Is this a mail order prescription request ? NO If the refill is from a FAXED refill request what is the RX # listed on the fax? N/A Patients current insurance carrier is: Payor: Over 40 Females [facility] [employer] / Plan: [employer] $20 [place] 1 / Product Type: HMO [id number] documented in this encounter Plan of Treatment Not on file documented as of this encounter Visit Diagnoses Not on filedocumented in this encounter Care Teams Vp Outcomes Relationship Specialty Start Date End Date Roxanne Wooten MD PCP - General Internal Medicine 01/20/12 04/17/21 Nora Michelle MD PCP - General Internal Medicine 04/18/21 06/10/21 [facility], Pcp PCP - General Internal Medicine 06/11/21 02/22/23 Vijaya Tran MD [address] [place] [address] PCP - General Internal Medicine 02/23/23 11/05/23 Harish Murrell [address] [place] [address] PCP - General Internal Medicine 11/06/23 documented as of this encounter
--- OUTSIDE RECORDS SUMMARY | 2025-01-05 15:19 | XMS_ITS | Encounter Summary ---
Author Organization [facility] Address [address] [place] [address] Care Team Providers Care Centrifugal Spinner Name Role Phone Roxanne Wooten MD Primary Care Provider Nora Peres MD Primary Care Provider Unavailab [facility] Primary Care Provider UnavailVijaya Walsh MD Primary Care Provider [phone] Harish Murrell Primary Care Provider Unavail le Encounter Details Date Type Department Care Team Description 07/25/2020 Pt. Non Urgent Medic al Question Adult Medicine [address] [address] Roxanne Wooten MD Social History Tobacco Use [...] Telephone Encounter - Katrina Romero M.A. - 07/25/2020 9:22 AM ESTFrom: Miracle Joseph To: Roxanne Wooten MD Sent: 07/25/2020 9:05 AM EST Subject: prescription error Went to [facility] pick[facility] my Metformin ER 500 mg prescription this weekend...the script was written for 2 tabs a day and I was taking 3 tabs a day. The pharmacy, [facility] in [place] contacted you but hasn't received an answer from [facility] yet, so they asked if I could contact you also to please contact them back regarding the correct dosing information so they can fill it correctly. I only have enough pills left to last through Thursday. Thanks, Miracle Joseph documented in this encounter Plan of Treatment Not on file documented as of this encounter Visit Diagnoses Not on filedocumented in this encounter Care Teams Centrifugal Spinner Relationship Specialty Start Date End Date Roxanne Wooten MD PCP - General Internal Medicine 01/20/12 04/17/21 Nora Michelle MD PCP - General Internal Medicine 04/18/21 06/10/21 [facility], Pcp PCP - General Internal Medicine 06/11/21 02/22/23 Vijaya Tran MD [address] [place] [address] PCP - General Internal Medicine 02/23/23 11/05/23 Harish Murrell [address] [place] [address] PCP - General Internal Medicine 11/06/23 documented as of this encounter
--- OUTSIDE RECORDS SUMMARY | 2025-01-05 15:19 | XMS_ITS | Encounter Summary ---
Author Organization [facility] Address [address] [place] [address] Care Team Providers Care Spinner Tender Name Role Phone Roxanne Wooten MD Primary Care Provider Nora Peres MD Primary Care Provider Unavailab [facility], [facility] Primary Care Provider UnavailVijaya Walsh MD Primary Care Provider [phone] Harsih Murrell Primary Care Provider Unavail le Encounter Details Date Type Department Care Team Description 05/29/2020 Pt. Non Urgent Medic al Question Adult Medicine [address] [address] Roxanne Wooten MD Social History Tobacco Use [...] Miscellaneous Notes * Telephone Encounter - Katrina Huynh M.A. - 05/29/2020 10:36 AM EDTFrom: iMracle Joseph To: Roxanne Wooten MD Sent: 05/29/2020 10:35 AM EDT Subject: medication renewal Dr Wooten, Don't need the refill for two months or so...but I'm checking ahead so I can plan. I can't be without a beta michel. I no longer plan on using Dr. Spivey's office and they normally renew my Metoprolol Succ ER script.I am going to be looking for a new asp net c developer but thi s will probably take a long while as I needto research doctors that take my insurance when I'm able to and then it also depends on if they're taking on new patients right now. Would you be able to prescribe a script for this medication Metoprolol Succ ER with refills as needed until the above is settled ? May be a little while before I can get in somewhere. Let me know so I'll know if I'm all set. Also, I did make an 07/18 appointment with Sylvia Callejas. It showed as a video appointment ? I was unable to see any upcoming appointments with you available. Thanks, Miracle Joseph [phone] documented in this encounter Plan of Treatment Not on file documented as of this encounter Visit Diagnoses Not on filedocumented in this encounter Care Teams Spinner Tender Relationship Specialty Start Date End Date Roxanne Wooten MD PCP - General Internal Medicine 01/20/12 04/17/21 Nora Michelle MD PCP - General Internal Medicine 04/18/21 06/10/21 [facility] - [place] Internal Medicine 06/11/21 02/22/23 Vijaya Tran MD [address] [place] [address] PCP - General Internal Medicine 02/23/23 11/05/23 Harish Murrell [address] [place] [address] PCP - General Internal Medicine 11/06/23 documented as of this encounter
--- OUTSIDE RECORDS SUMMARY | 2025-01-05 15:19 | XMS_ITS | Encounter Summary ---
Author Organization [facility] Address [address] [place] [address] Care Team Providers Care Electronic Publishing Specialist Name Role Phone Roxanne Wooten MD Primary Care Provider Unava Nora Rolon MD Primary Care Provider Unavailab le [facility], Pcp Primary Care Provider Unavailabl Vijaya Maldonado MD Primary Care Provider [phone] Harish Murrell Primary Care Provider Unavailab le Reason for Visit * Reason Onset Date Comments refill request 07/09/2018 Coumadin Encounter Details Date Type Department Care Team Description 07/09/2018 Refill Cardiology - [address] [id number] Ning Spivey MD [address] [place] [address] [phone] refill request (Coumadin ) Social History Tobacco Use Types Packs/Day Years [...] encounter Miscellaneous Notes * Telephone Encounter - Cata Fisher L.P.N. - 07/09/2018 3:04 PM EDT Lab Results Component Value Date WBC 7.3 04/04/2016 HGB 13.1 04/04/2016 HCT 40.8 04/04/2016 MCV 92.1 04/04/2016 PLTCT 242 04/04/2016 Lab Results Component Value Date INR 1.32 03/17/2018 Lab Results Component Value Date NA 140 02/06/2018 K 4.3 02/06/2018 CO2 27.6 02/06/2018 CL 100 02/06/2018 BUN 7 02/06/2018 CREAT 0.6 02/06/2018 GLU 139 02/06/2018 CA 9.3 02/06/2018 GFR > 60 02/06/2018 07-02-18 DR Spivey's note 1. Aortic valve replacement-repeat echocardiogram for surveillance December of next year and if it looks okay can continue with surveillance echo every 2 years. Continue Coumadin. * Telephone Encounter - Bernice Fry - 07/09/2018 2:55 PM EDT Pt said she sent mychart refill request, the pharmacy told her they have did not receive the script, she needs this medication for Thursday. Patient would like script to be: E-PRESCRIBED/FAXED TO PHARMACY WHEN WAS THE PATIENT'S LAST APPOINTMENT IN ADULT MEDICINE? 07/02/18 WHEN WAS THE LAST TIME THE PATIENT SAW THEIR PCP? Same as above Does patient have an upcoming appointment? Wait list (THE MEDICATION REQUESTED IS ON THE MED LIST ABOVE) All of the medications requested were on the CURRENT MEDS list Did you check the Pharmacy information above?: NO Patient wants: 90 -day supply Is this a mail order prescription request ? NO If the refill is from a FAXED refill request what is the RX # listed on the fax? N/A Patients current insurance carrier is: Payor: [employer] S[employer]NA HOYOS / Plan: HMO $20 [place] / Product Type: HMO [id number] documented in this encounter Plan of Treatment Not on file documented as of this encounter Visit Diagnoses Not on filedocumented in this encounter Care Teams Electronic Publishing Specialist Relationship Specialty Start Date End Date Roxanne Wooten MD PCP - General Internal Medicine 01/20/12 04/17/21 Nora Michelle MD PCP - General Internal Medicine 04/18/21 06/10/21 [facility], [facility] PCP - General Internal Medicine 06/11/21 02/22/23 Vijaya Tran MD [address] [place] [address] PCP - General Internal Medicine 02/23/23 11/05/23 Harish Murrell [address] [place] [address] PCP - General Internal Medicine 11/06/23 documented as of this encounter
--- OUTSIDE RECORDS SUMMARY | 2025-01-05 15:19 | XMS_ITS | Encounter Summary ---
Author Organization [facility] Address [address] [place] [address] Care Team Providers Care Tire Bladder Maker Name Role Phone Roxanne Wooten MD Primary Care Provider Unava Nora Rolon MD Primary Care Provider Unavailab donald [facility], Pcp Primary Care Provider UnavailVijaya Walsh MD Primary Care Provider [phone] Harish Murrell Primary Care Provider Unavailab bennett Encounter Details Date Type Department Care Team Description 08/18/2015 [facility] Medical Records [address] [place] [address] Carmen Calderón Social History Tobacco Use Types Packs/Day Years [...] on filedocumented in this encounter Care Teams Tire Bladder Maker Relationship Specialty Start Date End Date Roxanne Wooten MD PCP - General Internal Medicine 01/20/12 04/17/21 Nora Michelle MD PCP - General Internal Medicine 04/18/21 06/10/21 [facility], Pcp PCP - General Internal Medicine 06/11/21 02/22/23 Vijaya Tran MD [address] [place] [address] PCP - General Internal Medicine 02/23/23 11/05/23 Harish Murrell [address] [place] [address] PCP - General Internal Medicine 11/06/23 documented as of this encounter
--- OUTSIDE RECORDS SUMMARY | 2025-01-05 15:19 | XMS_ITS | Encounter Summary ---
Author Organization [facility] Address [address] [place] [address] Care Team Providers Care Cooler Room Worker Name Role Phone Roxanne Wooten MD Primary Care Provider Nora Peres MD Primary Care Provider Unavailab le [facility] Primary Care Provider UnavailVijaya Walsh MD Primary Care Provider [phone] Harish Murrell Primary Care Provider Unavailab le Encounter Details Date Type Department Care Team Description 05/25/2018 Orders Only Adult Medicine [address] [address] Sylvia Callejas PA-C [address] [place] [address] Special screening for malignant neoplasms, colon Social History Tobacco Use Types Packs/Day Years [...] on file documented as of this encounter Procedures Procedure Name Priority Date/Time Associated Diagnosis Comments CHG BLOOD OCCULT FECAL HGB DETER IA QUAL FECES 1-3 Routine 05/20/2018 2:48 PM EDT Special screening for malignant neoplasms, colon documented in this encounter Results * BLOOD OCCULT QUAL FECAL HEMGLBN (05/20/2018 2:48 PM EDT) OCCULT BLOOD, STOOL neg INTERNAL CONTROL VALID yes Stool 05/20/2018 2:48 PM EDT Sylvia Callejas PA-C LAB documented in this encounter Visit Diagnoses Diagnosis Special screening for malignant neoplasms, colon documented in this encounter Care Teams Cooler Room Worker Relationship Specialty Start Date End Date Roxanne Wooten MD PCP - General Internal Medicine 01/20/12 04/17/21 Nora Michelle MD PCP - General Internal Medicine 04/18/21 06/10/21 [facility] PCP - General Internal Medicine 06/11/21 02/22/23 Vijaya Tran MD [address] [place] [address] PCP - General Internal Medicine 02/23/23 11/05/23 Harish Murrell [address] [place] [address] PCP - General Internal Medicine 11/06/23 documented as of this encounter
--- OUTSIDE RECORDS SUMMARY | 2025-01-05 15:19 | XMS_ITS | Encounter Summary ---
Author Organization [facility] Address [address] [place] [address] Care Team Providers Care Master Planner Name Role Phone Roxanne Wooten MD Primary Care Provider Unava ilNora Rodríguez MD Primary Care Provider Unavailab donald [facility], Pcp Primary Care Provider UnavailVijaya Walsh MD Primary Care Provider [phone] Harish Murrell Primary Care Provider Unavail Encounter Details Date Type Department Care Team Description 07/25/2015 Telephone Cardiology - [address] [address] Ning Spivey MD [address] [place] [address] [phone] Social History Tobacco Use Types Packs/Day Years [...] on filedocumented in this encounter Care Teams Master Planner Relationship Specialty Start Date End Date Roxanne Wooten MD PCP - General Internal Medicine 01/20/12 04/17/21 Nora Michelle MD PCP - General Internal Medicine 04/18/21 06/10/21 [facility] PCP - General Internal Medicine 06/11/21 02/22/23 Vijaya Tran MD [address] [place] [address] PCP - General Internal Medicine 02/23/23 11/05/23 Harish Murrell [address] [place] [address] PCP - General Internal Medicine 11/06/23 documented as of this encounter
--- OUTSIDE RECORDS SUMMARY | 2025-01-05 15:19 | XMS_ITS | Encounter Summary ---
Author Organization [facility] Address [address] [place] [address] Care Team Providers Care Family Dinner Service Specialist Name Role Phone Roxanne Wooten MD Primary Care Provider Nora Peres MD Primary Care Provider Unavailab donald [facility] Primary Care Provider UnavailVijaya Walsh MD Primary Care Provider [phone] Harish Murrell Primary Care Provider Unavailab bennett Encounter Details Date Type Department Care Team Description 07/30/2015 Pt. Non Urgent Medic al Question ENT [address] [place] [address] Jt Jerry PA-C Social History Tobacco Use Types Packs/Day Years Used Date Smoking Tobacco: Never Smokeless Tobacco: Never Alcohol Use Standard Drinks/Week Comments No 0 (1 standard drink = 0.6 oz pur e alcohol) Sex Assigned at Date Recorded Not on file Job Start Date Occupation Industry Not on file Not on file Not on file documented as of this encounter Progress Notes * Fiorella Chawla M.A. - 07/30/2015 9:20 AM ESTFrom: Miracle Joseph To: Jt Jerry PA-C Sent: 07/30/2015 9:11 AM EST Subject: question Got the gel you recommended and doing other tips. Curious about the Afrin though, since it's a decongestant is it safe to take with the medications I take. I was always told not to take a decongestant with them. If you think it's safe I'll try it, or is there something else that would work in the same way ? All the warnings on the back of box unfortunately are all my conditions :-), sorry to be a pain, but figured I'd check. Thanks, Miracle documented in this encounter Plan of Treatment Not on file documented as of this encounter Visit Diagnoses Not on filedocumented in this encounter Care Teams Family Dinner Service Specialist Relationship Specialty Start Date End Date Roxanne Wooten MD PCP - General Internal Medicine 01/20/12 04/17/21 Nora Michelle MD PCP - General Internal Medicine 04/18/21 06/10/21 [facility] PCP - General Internal Medicine 06/11/21 02/22/23 Vijaya Tran MD [address] [place] [address] PCP - General Internal Medicine 02/23/23 11/05/23 Harish Murrell [address] [place] [address] PCP - General Internal Medicine 11/06/23 documented as of this encounter
--- OUTSIDE RECORDS SUMMARY | 2025-01-05 15:20 | XMS_ITS | Encounter Summary ---
Author Organization [facility] Address [address] [place] [address] Care Team Providers Care Chief School Finance Officer Name Role Phone Roxanne Wooten MD Primary Care Provider Nora Peres MD Primary Care Provider Unavailab donald [facility] Primary Care Provider UnavailVijaya Walsh MD Primary Care Provider [phone] Harish Murrell Primary Care Provider Unavailab bennett Encounter Details Date Type Department Care Team Description 12/13/2018 Orders Only Medical Records [address] [place] [address] Abstract, Provider Social History Tobacco Use Types [...] Procedure Name Priority Date/Time Associated Diagnosis Comments OUTSIDE CT Routine 12/10/2018 documented in this encounter Results * OUTSIDE CT (12/10/2018) Roxanne Wooten MD RADIOLOGY documented in this encounter Visit Diagnoses Not on filedocumented in this encounter Care Teams Chief School Finance Officer Relationship Specialty Start Date End Date Roxanne Wooten MD PCP - General Internal Medicine 01/20/12 04/17/21 Nora Michelle MD PCP - General Internal Medicine 04/18/21 06/10/21 [facility], Pcp PCP - General Internal Medicine 06/11/21 02/22/23 Vijaya Tran MD [address] [place] [address] PCP - General Internal Medicine 02/23/23 11/05/23 Harish Murrell [address] [place] [address] PCP - General Internal Medicine 11/06/23 documented as of this encounter
--- OUTSIDE RECORDS SUMMARY | 2025-01-05 15:20 | XMS_ITS | Encounter Summary ---
Author Organization [facility] Address [address] [place] [address] Care Team Providers Care Frame Welder Cargo Utility Trailers Name Role Phone Roxanne Wooten MD Primary Care Provider Unava ilNora Rodríguez MD Primary Care Provider Unavailab donald [facility], Pcp Primary Care Provider UnavailVijaya Walsh MD Primary Care Provider [phone] Harish Murrell Primary Care Provider Unavailab bennett Encounter Details Date Type Department Care Team Description 04/23/2016 [facility] Medical Records [address] [place] [address] Chepe Horan MD Social History Tobacco Use Types Packs/Day [...] on filedocumented in this encounter Care Teams Frame Welder Cargo Utility Trailers Relationship Specialty Start Date End Date Roxanne Wooten MD PCP - General Internal Medicine 01/20/12 04/17/21 Nora Michelle MD PCP - General Internal Medicine 04/18/21 06/10/21 [facility], Pcp PCP - General Internal Medicine 06/11/21 02/22/23 Vijaya Tran MD [address] [place], [place] [phone] PCP - General Internal Medicine 02/23/23 11/05/23 Harish Murrell [address] [place] [address] PCP - General Internal Medicine 11/06/23 documented as of this encounter
--- OUTSIDE RECORDS SUMMARY | 2025-01-05 15:20 | XMS_ITS | Encounter Summary ---
Author Organization [facility] Address [address] [place] [address] Care Team Providers Care Diesel Mechanic Apprentice Name Role Phone Roxanne Wooten MD Primary Care Provider Unava ilNora Rodríguez MD Primary Care Provider Unavailab donald [facility], Pcp Primary Care Provider Unavailabl Vijaya Maldonado MD Primary Care Provider [phone] Harish Murrell Primary Care Provider Unavailab bennett Encounter Details Date Type Department Care Team Description 12/20/2018 Corn Sheller Operator Report Medical Records [address] [place] [address] Betty Ruby NP Social History Tobacco Use Types Packs/Day Years [...] on filedocumented in this encounter Care Teams Diesel Mechanic Apprentice Relationship Specialty Start Date End Date Roxanne Wooten MD PCP - General Internal Medicine 01/20/12 04/17/21 Nora Michelle MD PCP - General Internal Medicine 04/18/21 06/10/21 [facility], Pcp PCP - General Internal Medicine 06/11/21 02/22/23 Vijaya Tran MD [address] [place] [address] [place] [address] PCP - General Internal Medicine 02/23/23 11/05/23 Harish Murrell [address] [place] [address] PCP - General Internal Medicine 11/06/23 documented as of this encounter
--- OUTSIDE RECORDS SUMMARY | 2025-01-05 15:22 | XMS_ITS | Clinical Summary ---
Author Organization [facility] Address [address] [place] [address] Phone Care Team Providers Care Full Time Staff Interpreter Name Role Phone Harish Farias Primary Care Provider Surgical History Surgery Date Site/Laterality Comments TONSILLECTOMY PROCEDURE: HISTORICAL TONSILLECTOMY OTHER SURGICAL HISTORY 05/26/14, 11/16/14 Right PROCEDURE: SC CYSTOURETHROSCOPY W/RMVL URETERAL CALCULUS; COMMENT: Dr. Roy, [facility] AORTIC VALVE REPLACEMENT 08/16/2015 PROCEDURE: HISTORICAL AORTIC VALVE REPL; COMMENT: Dr Sheth, [facility] BREAST BIOPSY 03/2018 Left PROCEDURE: SC BIOPSY BREAST OPEN INCISIONAL; COMMENT: Benign OTHER SURGICAL HISTORY 04/23/2016 Left PROCEDURE: PARTIAL REMOVAL OF THYROI; COMMENT: Dr. Corby Uriarte, [facility] OTHER SURGICAL HISTORY 04/13/2019 Left PROCEDURE: REFERRAL TO DERMATOLOGY [facility] SURGERY; COMMENT: Dr. Kate Oviedo; [facility] Medical History Medical History Date Comments Hypertension DX:Hypertension Hypercholesteremia DX:Hyperchole steremia Vitamin D deficiency DX:Vitamin D deficiency Heart palpitations DX:Heart palp itations Chronic thyroiditis 07/02/2015 DX:Chronic t hyroiditis Morbid obesity (CMS/HCC V24, CMS/HCC V28) 09/18/2013 DX:Morbid obesity (HCC); COM MENT: BMI 42.18 on 07/21/13. Right thyroid nodule 01/26/2018 DX:Right th yroid nodule Basal cell carcinoma of skin 02/17/2019 DX: Basal cell carcinoma of skin; COMMENT: Infiltrative type left nasolabial crease - 02/2019 Family History Medical History Relation Name Comments Heart attack Brother 1 Other: Cardiac valve replacement Brother 2 Other: Other Father heart problems Coronary artery disease Mother DM, Cardiac valve replacement Other: skin cancer Mother scc, bcc Breast cancer Other mat aunt Colon cancer Other uncle maternal Diabetes Sister 1 Hypertension Sister 2 Ovarian cancer Neg Hx Relation Name Status Comments Brother 1 Brother 2 Brother 3 Alive CABG, Valve rep lacement, HTN Father CAD, HTN Mother Alive Valve replaceme nt, CABG, Basal cell CA Other Sister 1 Sister 2 Sister 3 Alive HTN Social History Tobacco Use Types Packs/Day Years Used Date Smoking Tobacco: Never Smokeless Tobacco: Never Alcohol Use Standard Drinks/Week Comments No 0 (1 standard drink = 0.6 oz pur e alcohol) Comments Unknown Sex and Gender Information Value Date Recorded Sex Assigned at Not on file Legal Sex Female 11:21 AM EST Gender Identity Not on file Sexual Orientation Not on file Obstetrics History Last Filed Vital Signs Vital Sign Reading Time Taken Comments Blood Pressure 142/68 10/08/2023 11:49 AM EST Pulse 76 10/08/2023 11:29 AM EST Temperature - - Respiratory Rate - - Oxygen Saturation - - Inhaled Oxygen Concentration - - Weight 86.2 kg (190 lb) 10/08/2023 11:29 AM EST Height 152.4 cm (5') 10/08/2023 11:29 AM EST Body Mass Index 37.11 10/08/2023 11:29 AM EST Plan of Treatment Health Maintenance Due Date Last Done Comments Diabetes: Annual GFR (Glomerular Filtration Rate) 1961 Diabetes: Annual Foot Exam 1971 Diabetes: Annual Retina Eye Exam 1971 Zoster Vaccines (1 of 2) 1980 Pneumococcal Vaccine: 50+ Years (2 of 2 - PCV) 05/24/2016 05/24/2015 Pneumococcal Vaccine: Pediatrics (0 to 5 Years) and At-Risk Patients (6 to 64 Years) (2 of 2 - PCV) 05/24/2016 05/24/2015 COVID-19 Vaccine (3 - Pfizer risk series) 12/19/2020 11/21/2020, 10/30/2020 Cervical Cancer Screening: Pap Smear 06/11/2021 06/11/2018 RSV Immunization Adult Patients (1 - Risk 60-74 years 1-dose series) 2021 Cholesterol Screening (Lipid Panel) 08/05/2022 Colorectal Cancer Screening: Stool Based Tests (FOBT/FIT) 08/05/2022 Depression Screening 08/05/2022 HIV Screening 08/05/2022 Hepatitis C Screening 08/05/2022 Social Influencers of Health Screening 08/05/2022 Diabetes: Annual Urine Albumin-Creatinine Ratio (uACR) 08/20/2022 Diabetes: Blood Sugar Control Test (HGBA1C) 08/20/2022 Hypertension/CHF/CAD Annual BMP Blood Test 08/20/2022 Influenza Vaccine (Season Ended) 2025 05/26/2019, 06/02/2018, 05/25/2017, Additional history exists Breast Cancer Screening 07/01/2026 07/01/20, 06/14/2021, 06/01/2020, Additional history exists DTaP,Tdap,and Td Vaccines (2 - Td or Tdap) 04/29/2028 04/29/2018 MMR Vaccines Aged Out 02/16/2019, 01/12/2019 No lo nger eligible based on patient's age to complete this topic HIB Vaccines Aged Out No longer eligi ble based on patient's age to complete this topic HPV Vaccines Aged Out No longer eligi ble based on patient's age to complete this topic Hepatitis A Vaccines Aged Out No long er eligible based on patient's age to complete this topic Hepatitis B Vaccines Aged Out No long er eligible based on patient's age to complete this topic IPV Vaccines Aged Out No longer eligi ble based on patient's age to complete this topic Meningococcal ACWY Vaccine Aged Out N o longer eligible based on patient's age to complete this topic Meningococcal B Vaccine Aged Out No l onger eligible based on patient's age to complete this topic RSV Immunization Patients Under 20 months Aged Out No longer eligible based on patient's age to complete this topic Varicella Vaccines Aged Out No longer eligible based on patient's age to complete this topic Procedures Procedure Name Priority Date/Time Associated Diagnosis Comments OLIVIA SCREENING DIGITAL Routine 07/01/2024 3:43 PM EDT Encounter for screening mammogram for malignant neoplasm of breast PAP SMEAR Routine 06/11/2018 from Last 3 Months or Most Recently Relevant to Health Maintenance Results * OLIVIA SCREENING DIGITAL (07/01/2024 3:43 PM EDT) Anatomical Region Laterality Modality Mammography 07/01/2024 2:50 PM EDT Narrative 07/01/2024 3:43 PM EDT [facility] Diagnostic Imaging Department [address] [place] [address] Patient: ??STEPHANIE MCCOLLUM ?/Age/Sex: 1960 - 63 - F Unit#: ??[id number] ? Location/Status: ??SPDIMAM/REG CLI ? Mnemonic/Ordering Site: ??DIGSC/SPMAM Ordering Physician: ??HARISH FARIAS PA-C [facility] Screening Digital - 07/01/24 - 1504 Report Status:Signed EXAM: Olivia Screening Digital EXAM DATE AND TIME: 07/01/2024 3:04 PM HISTORY: ??Annual screening COMPARISON: ??06/22/2023, 12/17/2022, 06/18/2022, 12/17/2021, 06/18/2021, 06/01/2020 and 02/22/2019 TECHNIQUE: Bilateral digital breast tomosynthesis was performed in the CC and MLO projections. Computer aided detection with MetaCure 7.2-H and Cloud [employer] 3D 3.1 was employed. TISSUE DENSITY: a. The breasts are almost entirely fatty. FINDINGS: No suspicious masses, grouped microcalcifications, or areas of architectural distortion are seen. The skin and vascularity are unremarkable. ??Stable biopsy markers in the left breast. ??Stable bilateral breast calcifications. IMPRESSION: Stable mammographic appearance of the breasts. ??No evidence of malignancy is seen. A negative mammogram in the presence of a clinically suspicious palpable abnormality does not preclude the possibility of malignancy or alter the indications for biopsy. BI-RADS: ??Category 2: Benign RECOMMENDATION(S): 1: Routine screening mammogram BILATERAL in 1 year. Dictating Physician: ??ELIZABETH HARPER MD Electronically Signed by: ??ELIZABETH HARPER MD Dic Date/Time: ??07/01/24 154 Sign date/Time: ??07/01/24 1549 Procedure Note Elizabeth Harper MD - 07/09/2024 [facility] Diagnostic Imaging Department [address] [place] [address] Patient: STEPHANIE MCCOLLUM Cassandra GarzaB./Age/Sex: 1960 - 63 - F Unit#: [id number] [facility] Mnemonic/Ordering Site: [facility] Ordering Physician: HARISH FARIAS PA-C [facility] Screening Digital - 07/01/24 - 1504 Report Status:Signed EXAM: [facility] Screening Digital EXAM DATE AND TIME: 07/01/2024 3:04 PM HISTORY: Annual screening COMPARISON: 06/22/2023, 12/17/2022, 06/18/2022, 12/17/2021, 06/18/2021, 06/01/2020 and 02/22/2019 TECHNIQUE: Bilateral digital breast tomosynthesis was performed in the CCand MLO projections. Computer aided detection with [employer] 7.2-H [employer] 3D 3.1 was employed. TISSUE DENSITY: a. The breasts are almost entirely fatty. FINDINGS: No suspicious masses, grouped microcalcifications, or areas ofarchitectural distortion are seen. The skin and vascularity are unremarkable. Stablebiopsy markers in the left breast. Stable bilateral breast calcifications. IMPRESSION: Stable mammographic appearance of the breasts. No evidence of malignancyis seen. A negative mammogram in the presence of a clinically suspicious palpable abnormality does not preclude the possibility of malignancy or alter the indications for biopsy. BI-RADS: Category 2: Benign RECOMMENDATION(S): 1: Routine screening mammogram BILATERAL in 1 year. Dictating Physician: ELIZABETH HARPER MD Electronically Signed by: ELIZABETH HARPER MD Dic Date/Time: 07/01/24 1540 Sign date/Time: 07/01/24 1543 Harish SANTOS IMG BI PROCEDURES Final Res ult * Pap smear (06/11/2018) 06/11/2018 Narrative HISTORICAL TESTING LAB RESULTING AGENCY - 06/17/2018 9:30 AM EDT [id number] THINPREP PAP, IMAGED: NEGATIVE FOR SQUAMOUS INTRAEPITHELIAL LESION AND MALIGNANCY ??. ABUNDANT RED BLOOD CELLS ARE PRESENT. RESULT OF APTIMA HIGH RISK HPV ASSAY: ? NEGATIVE ?? (SEROTYPES 16,18,31,33,35,39,45,51,52,56,58,59,66,68) SHER WHITE(ASCP) (CASE ELECTRONICALLY SIGNED 06 16 2018) ADEQUACY: SATISFACTORY. ENDOCERVICAL/TRANSFORMATION ZONE COMPONENT PRESENT. SOURCE: THINPREP PAP HPV ANY DX: ??REFLEX 16 AND 18, CERVICAL, IMAGED: CLINICAL INFORMATION: HPV ANY DIAGNOSIS. MENOPAUSE [Z12.4, Z01.419] Leticia Victor MD LAB CYTOLOGY ORDERABLES Final Result HISTORICAL TESTING LAB RESULTING AGENCY from Last 3 Months or Most Recently Relevant to Health Maintenance Care Teams Full Time Staff Interpreter Relationship Specialty Start Date End Date Harish Farias PA PCP - General 11/06/23
--- OUTSIDE RECORDS SUMMARY | 2025-01-05 15:22 | XMS_ITS | Encounter Summary ---
Author Organization [facility] Address [address] [place] [address] Care Team Providers Care Deputy Of Counter Intelligence Name Role Phone Sharon Olmedo MD Primary Care Provider [phone] Raúl Schulte MD Primary Care Provider Roxanne Soto MD Primary Care Provider Nora Peres MD Primary Care Provider Unavailab [facility], Pcp Primary Care Provider Vijaya Mo MD Primary Care Provider [phone] Harish Murrell Primary Care Provider Unavail le Encounter Details Date Type Department Care Team Description 12/02/2010 SCAN Medical Records [address] [place] [id number] Abstract, Provider Social History Tobacco Use Types [...] on filedocumented in this encounter Care Teams Deputy Of Counter Intelligence Relationship Specialty Start Date End Date Sharon Olmedo MD [address] [place] [address] PCP - General 10/10/10 10/14/11 Raúl Schulte MD [address] [place] [address] PCP - General Internal Medicine 10/15/11 01/19/12 Roxanne Wooten MD [address] [place] [address] PCP - General Internal Medicine 01/20/12 04/17/21 Nora Michelle MD [address] [place], [place] [id number] PCP - General Internal Medicine 04/18/21 06/10/21 [facility], Pcp [address] [place] [address] PCP - General Internal Medicine 06/11/21 02/22/23 Vijaya Tran MD [address] [place], [place] [id number] PCP - General Internal Medicine 02/23/23 11/05/23 Harish Murrell [address] [place] [address] PCP - General Internal Medicine 11/06/23 documented as of this encounter
--- OUTSIDE RECORDS SUMMARY | 2025-01-05 15:22 | XMS_ITS | Encounter Summary ---
Author Organization [facility] Address [address] [place] [address] Care Team Providers Care Social Sciences Professor Name Role Phone Raúl Dunham MD Primary Care Provider Roxanne Soto MD Primary Care Provider Nora Peres MD Primary Care Provider Unavailab le [facility], Pcp Primary Care Provider Vijaya Mo MD Primary Care Provider [phone] Harish Murrell Primary Care Provider Unavailab le Reason for Visit * Reason Onset Date Comments LAB WORK 12/23/2011 Encounter Details Date Type Department Care Team Description 12/23/2011 Telephone Adult [address] [address] Raúl Dunham MD LAB WORK Social History Tobacco Use Types Packs/Day Years [...] encounter Miscellaneous Notes * Telephone Encounter - Mily Stevens M.A. - 12/23/2011 11:04 AM EDT Message left for patient to return Call. Patient needs to book a followup with Dr Dunham within the couple of weeks per dr dunham documented in this encounter Plan of Treatment Not on file documented as of this encounter Visit Diagnoses Not on filedocumented in this encounter Care Teams Social Sciences Professor Relationship Specialty Start Date End Date Raúl Dunham MD PCP - General Internal Medicine 10/15/11 01/19/12 Roxanne Wooten MD PCP - General Internal Medicine 01/20/12 04/17/21 Nora Michelle MD PCP - General Internal Medicine 04/18/21 06/10/21 [facility] Pcp PCP - General Internal Medicine 06/11/21 02/22/23 Vijaya Tran MD [address] [place] [address] PCP - General Internal Medicine 02/23/23 11/05/23 Harish Murrell [address] [place] [address] PCP - General Internal Medicine 11/06/23 documented as of this encounter
--- OUTSIDE RECORDS SUMMARY | 2025-01-05 15:22 | XMS_ITS | Encounter Summary ---
Author Organization [facility] Address [address] [place] [address] Care Team Providers Care Seasoning Sprayer Name Role Phone Roxanne Wooten MD Primary Care Provider Unava ilNora Rodríugez MD Primary Care Provider Unavailab donald [facility], Pcp Primary Care Provider Unavailabl Vijaya Maldonado MD Primary Care Provider [phone] Harish Murrell Primary Care Provider Unavailab bennett Encounter Details Date Type Department Care Team Description 07/13/2014 Blood Bank Business Manager Report Medical Records [address] [place] [address] Merlyn Chaudhari PA-C Social History Tobacco Use [...] on filedocumented in this encounter Care Teams Seasoning Sprayer Relationship Specialty Start Date End Date Roxanne Wooten MD PCP - General Internal Medicine 01/20/12 04/17/21 Nora Michelle MD PCP - General Internal Medicine 04/18/21 06/10/21 [facility], Pcp PCP - General Internal Medicine 06/11/21 02/22/23 Vijaya Tran MD [address] [place] [address] PCP - General Internal Medicine 02/23/23 11/05/23 Harish Murrell [address] [place] [address] PCP - General Internal Medicine 11/06/23 documented as of this encounter
--- OUTSIDE RECORDS SUMMARY | 2025-01-05 15:22 | XMS_ITS | Encounter Summary ---
Author Organization [facility] Address [address] [place] [address] Care Team Providers Care Room Inspector Name Role Phone Roxanne Wooten MD Primary Care Provider Unava ilNora Rodríguez MD Primary Care Provider Unavailab donald [facility], Pcp Primary Care Provider UnavailVijaya Walsh MD Primary Care Provider [phone] Harish Murrell Primary Care Provider Unavailab bennett Encounter Details Date Type Department Care Team Description 11/16/2014 Hospital Medical Records [address] [place] [id number] Emeli Roy MD Social History Tobacco Use Types Packs/Day [...] on filedocumented in this encounter Care Teams Room Inspector Relationship Specialty Start Date End Date Roxanne Wooten MD PCP - General Internal Medicine 01/20/12 04/17/21 Nora Michelle MD PCP - General Internal Medicine 04/18/21 06/10/21 [facility], Pcp PCP - General Internal Medicine 06/11/21 02/22/23 Vijaya Tran MD [address] [place] [address] [place] [address] PCP - General Internal Medicine 02/23/23 11/05/23 Harish Murrell [address] [place] [address] PCP - General Internal Medicine 11/06/23 documented as of this encounter
--- OUTSIDE RECORDS SUMMARY | 2025-01-05 15:22 | XMS_ITS | Encounter Summary ---
Author Organization [facility] Address [address] [place] [address] Care Team Providers Care Ethics Instructor Name Role Phone Roxanne Wooten MD Primary Care Provider Agustinava Nora Rolon MD Primary Care Provider Unavailab donald [facility] Primary Care Provider UnavailVijaya Walsh MD Primary Care Provider [phone] Harish Murrell Primary Care Provider Unavail Encounter Details Date Type Department Care Team Description 01/10/2014 Telephone Adult [address] [address] Roxanne Wooten MD Social History Tobacco Use [...] Telephone Encounter - Cari Briceno R.N. - 01/10/2014 10:01 AM EDT DM Outreach L/M for patient - will defer further outreach at this time. Pt has not responded to attempts to contact her in regards to DM partnership. Last A1C in 10/21 was 7.6. documented in this encounter Plan of Treatment Not on file documented as of this encounter Visit Diagnoses Not on filedocumented in this encounter Care Teams Ethics Instructor Relationship Specialty Start Date End Date Roxanne Wooten MD PCP - General Internal Medicine 01/20/12 04/17/21 Nora Michelle MD PCP - General Internal Medicine 04/18/21 06/10/21 [facility] PCP - General Internal Medicine 06/11/21 02/22/23 Vijaya Tran MD [address] [place] [address] PCP - General Internal Medicine 02/23/23 11/05/23 Harish Murrell [address] [place] [address] PCP - General Internal Medicine 11/06/23 documented as of this encounter
--- OUTSIDE RECORDS SUMMARY | 2025-01-05 15:22 | XMS_ITS | Encounter Summary ---
Author Organization [facility] Address [address] [place] [address] Care Team Providers Care Circular Knife Machine Cutter Name Role Phone Roxanne Wooten MD Primary Care Provider Unava ilNora Rodríguez MD Primary Care Provider Unavailab donald [facility] [place], Pcp Primary Care Provider Unavailabl Vijaya Maldonado MD Primary Care Provider [phone] Harish Murrell Primary Care Provider Unavailab bennett Encounter Details Date Type Department Care Team Description 11/20/2014 Brick Layer Report Medical Records [address] [place] [address] Emeli Roy MD Social History Tobacco Use [...] on filedocumented in this encounter Care Teams Circular Knife Machine Cutter Relationship Specialty Start Date End Date Roxanne Wooten MD PCP - General Internal Medicine 01/20/12 04/17/21 Nora Michelle MD PCP - General Internal Medicine 04/18/21 06/10/21 [facility] [place], Pcp PCP - General Internal Medicine 06/11/21 02/22/23 Vijaya Tran MD [address] [place] [address] PCP - General Internal Medicine 02/23/23 11/05/23 Harish Murrell [address] [place] [address] PCP - General Internal Medicine 11/06/23 documented as of this encounter
--- OUTSIDE RECORDS SUMMARY | 2025-01-05 15:23 | XMS_ITS | Encounter Summary ---
Author Organization [facility] Address [address] [place] [address] Care Team Providers Care School Lunch Manager Name Role Phone Roxanne Wooten MD Primary Care Provider Unava Nora Rolon MD Primary Care Provider Unavailab bennett [facility], Pcp Primary Care Provider UnavailVijaya Walsh MD Primary Care Provider [phone] Harish Murrell Primary Care Provider Unavailab bennett Encounter Details Date Type Department Care Team Description 05/24/2014 Release of Information Medical Records [address] [place] [address] Abstract, Provider Social History Tobacco Use Types [...] on filedocumented in this encounter Care Teams School Lunch Manager Relationship Specialty Start Date End Date Roxanne Wooten MD PCP - General Internal Medicine 01/20/12 04/17/21 oNra Michelle MD PCP - General Internal Medicine 04/18/21 06/10/21 [facility], [facility] PCP - General Internal Medicine 06/11/21 02/22/23 Vijaya Tran MD [address] [place] [address] PCP - General Internal Medicine 02/23/23 11/05/23 Harish Murrell [address] [place] [address] PCP - General Internal Medicine 11/06/23 documented as of this encounter
--- OUTSIDE RECORDS SUMMARY | 2025-01-05 15:23 | XMS_ITS | Encounter Summary ---
Author Organization [facility] Address [address] [place] [address] Care Team Providers Care Beauty Director Name Role Phone Roxanne Wooten MD Primary Care Provider Unava ilNora Rodríguez MD Primary Care Provider Unavailab donald [facility], Pcp Primary Care Provider UnavailVijaya Walsh MD Primary Care Provider [phone] Harish Murrell Primary Care Provider Unavailab bennett Encounter Details Date Type Department Care Team Description 01/10/2016 Morning Nanny Report Medical Records [address] [place] [address] Cheyenne Simeon Social History Tobacco Use Types [...] on filedocumented in this encounter Care Teams Beauty Director Relationship Specialty Start Date End Date Roxanne Wooten MD PCP - General Internal Medicine 01/20/12 04/17/21 Nora Michelle MD PCP - General Internal Medicine 04/18/21 06/10/21 [facility], Pcp PCP - General Internal Medicine 06/11/21 02/22/23 Vijaya Tran MD [address] [place] [address] PCP - General Internal Medicine 02/23/23 11/05/23 Harish Murrell [address] [place] [address] PCP - General Internal Medicine 11/06/23 documented as of this encounter
--- OUTSIDE RECORDS SUMMARY | 2025-01-05 15:23 | XMS_ITS | Encounter Summary ---
Author Organization [facility] Address [address] [place] [address] Care Team Providers Care Instructor Tap Dancing Name Role Phone Roxanne Wooten MD Primary Care Provider Unava Nora Rolon MD Primary Care Provider Unavailab le [facility], Pcp Primary Care Provider Unavailabl Vijaya Maldonado MD Primary Care Provider [phone] Harish Murrell Primary Care Provider Unavailab le Reason for Referral * Non ADOLFO (Priority) - Authorized/Booked Specialty Diagnoses / Procedures Referred By Tony cleary Referred To Contact Dermatology Diagnoses Neoplasm of uncertain behavior Procedures REFERRAL TO DERMATOLOGY Sylvia Callejas PA-C [address] [place] [address] Derm/[place] [address] [place] [address] Referral ID Status Reason Start Date Expiration Date V isits Requested Visits Authorized [id number] Authorized/B ooked 01/17/2019 01/17/2020 1 1 Reason for Visit * Reason Onset Date Comments skin problems 01/17/2019 Encounter Details Date Type Department Care Team Description 01/17/2019 Pt. Non Urgent Medical Question Adult Medicine [address] [address] Roxanne Wooten MD Neoplasm of uncertain behavior (Primary Dx) Social History Tobacco Use Types [...] Progress Notes * Shara Danielson M.A. - 01/17/2019 1:14 PM EDTFrom: Miracle Joseph To: Roxanne Wooten MD Sent: 01/17/2019 12:58 PM EDT Subject: appointment Have a small dark mole ? that appeared on my face within a couple of days. It's bled just a little three times now for no reason that I could see. I want to go have it checked by a joist setter. Is there someone you can recommend that I could contact directly for an appointment. 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
--- OUTSIDE RECORDS SUMMARY | 2025-01-05 15:23 | XMS_ITS | Encounter Summary ---
Author Organization [facility] Address [address] [place] [address] Care Team Providers Care Freight Shipping Agent Name Role Phone Roxanne Wooten MD Primary Care Provider Unava ilNora Rodríguez MD Primary Care Provider Unavailab donald [facility], Pcp Primary Care Provider UnavailVijaya Walsh MD Primary Care Provider [phone] Harish Murrell Primary Care Provider Unavailab bennett Encounter Details Date Type Department Care Team Description 06/29/2014 Transfer Records Medical Records [address] [place] [id number] Abstract, Provider Social History Tobacco Use Types [...] on filedocumented in this encounter Care Teams Freight Shipping Agent Relationship Specialty Start Date End Date Roxanne Wooten MD PCP - General Internal Medicine 01/20/12 04/17/21 Nora Michelle MD PCP - General Internal Medicine 04/18/21 06/10/21 [facility], Pcp PCP - General Internal Medicine 06/11/21 02/22/23 Vijaya Tran MD [address] [place] [address] PCP - General Internal Medicine 02/23/23 11/05/23 Harish Murrell [address] [place] [address] PCP - General Internal Medicine 11/06/23 documented as of this encounter
--- OUTSIDE RECORDS SUMMARY | 2025-01-05 15:23 | XMS_ITS | Encounter Summary ---
Author Organization [facility] Address [address] [place] [address] Care Team Providers Care K 12 School Professional Name Role Phone Roxanne Wooten MD Primary Care Provider Unava Nora Rolon MD Primary Care Provider Unavailab le [facility], Pcp Primary Care Provider Unavailabl Vijaya Maldonado MD Primary Care Provider [phone] Harish Murrell Primary Care Provider Unavailab le Reason for Visit * Reason Onset Date Comments medication problems 03/02/2012 Encounter Details Date Type Department Care Team Description 03/02/2012 Telephone Adult Medicine [address] [address] Roxanne Wooten MD medication problems Social History Tobacco Use Types Packs/Day Years [...] encounter Miscellaneous Notes * Telephone Encounter - Sylvia Wright - 03/02/2012 4:27 PM EDT Nathan durbin just needs a script for the freestyle meter, they have the scripts for the supplies already. * Telephone Encounter - Nicol HardingP.N. - 03/02/2012 4:19 PM EDT Free style lite? Strips/ lancets * Telephone Encounter - Shara Aldana - 03/02/2012 3:43 PM EDT Who is calling? [facility] Name of the medication Needs script for Freestyle Lite (per insurance) What is the specific problem or interaction? Needs script for Lite If the patient is having a problem with taking the med - how long has the problem been going on? N/A documented in this encounter Plan of Treatment Not on file documented as of this encounter Visit Diagnoses Not on filedocumented in this encounter Care Teams K 12 School Professional Relationship Specialty Start Date End Date Roxanne Wooten MD PCP - General Internal Medicine 01/20/12 04/17/21 Nora Michelle MD PCP - General Internal Medicine 04/18/21 06/10/21 [facility], Pcp PCP - General Internal Medicine 06/11/21 02/22/23 Vijaya Tran MD [address] [place] [address] PCP - General Internal Medicine 02/23/23 11/05/23 Harish Murrell [address] [place] [address] PCP - General Internal Medicine 11/06/23 documented as of this encounter
--- OUTSIDE RECORDS SUMMARY | 2025-01-05 15:23 | XMS_ITS | Encounter Summary ---
Author Organization [facility] Address [address] [place] [address] Care Team Providers Care Sling Operator Name Role Phone Roxanne Wooten MD Primary Care Provider Unava Nora Rolon MD Primary Care Provider Unavailab le [facility], [facility] Primary Care Provider Unavailabl Vijaya Maldonado MD Primary Care Provider [phone] Harish Murrell Primary Care Provider Unavailab le Reason for Visit * Reason Onset Date Comments Medication 01/07/2016 Encounter Details Date Type Department Care Team Description 01/07/2016 Pt. Non Urgent Medic al Question Adult Medicine [address] [address] Roxanne Wooten MD Social History Tobacco Use [...] as of this encounter Progress Notes * Nicol Cervantes L.P.N. - 01/07/2016 2:14 PM EDTFrom: Miracle Joseph To: Roxanne Wooten MD Sent: 01/07/2016 2:09 PM EDT Subject: cutting off a med Trying to get off of the Citalopram. Skipped Thursday and felt ok. Took one today. Would the best method be to take one every other day and then after a week try every two days skipping. (don't want tobecome dependent on them) Taking 10 mg pill and there is no score eileen, so wasn't sure if pill could be cut. Or, if they comein 5 mg. Thanks, Miracle documented in this encounter Plan of Treatment Not on file documented as of this encounter Visit Diagnoses Not on filedocumented in this encounter Care Teams Sling Operator Relationship Specialty Start Date End Date Roxanne Wooten MD PCP - General Internal Medicine 01/20/12 04/17/21 Nora Michelle MD PCP - General Internal Medicine 04/18/21 06/10/21 [facility], Pcp PCP - General Internal Medicine 06/11/21 02/22/23 Vijaya Tran MD [address] [place] [address] PCP - General Internal Medicine 02/23/23 11/05/23 Harish Murrell [address] [place] [address] PCP - General Internal Medicine 11/06/23 documented as of this encounter
--- OUTSIDE RECORDS SUMMARY | 2025-01-05 15:23 | XMS_ITS | Encounter Summary ---
Author Organization [facility] Address [address] [place] [address] Care Team Providers Care Instrument Maker Apprentice Name Role Phone Roxanne Wooten MD Primary Care Provider Unava Nora Rolon MD Primary Care Provider Unavailab le [facility] Primary Care Provider Unavailabl Vijaya Maldonado MD Primary Care Provider [phone] Harish Murrell Primary Care Provider Unavailab le Reason for Visit * Reason Onset Date Comments Provider Call Back 05/11/2014 Encounter Details Date Type Department Care Team Description 05/11/2014 Telephone Urology [address] [place] [address] Jt Tim MD Provider Call Back Social History Tobacco Use Types Packs/Day Years [...] encounter Miscellaneous Notes * Telephone Encounter - Rani Rivera R.N. - 05/11/2014 3:17 PM EDT Pt notified that IV contrast is necessary. She is concerned about reaction to contrast (she is not allergic to iodine). She is reassured that [facility] has a response team in the instance of an emergency. * Telephone Encounter - Nasreen Rey - 05/11/2014 11:48 AM EDT Patient called looking to try and talk to a nurse about a CT scan that she has scheduled 05/19/2014.Patient was unaware that the CT scan would be done with contrast. Is that necessary? Patient is looking to find out if this is safe for her due to another condition she has. Patient can be reached [phone]. documented in this encounter Plan of Treatment Not on file documented as of this encounter Visit Diagnoses Not on filedocumented in this encounter Care Teams Instrument Maker Apprentice Relationship Specialty Start Date End Date Roxanne Wooten MD PCP - General Internal Medicine 01/20/12 04/17/21 Nora Michelle MD PCP - General Internal Medicine 04/18/21 06/10/21 [facility] PCP - General Internal Medicine 06/11/21 02/22/23 Vijaya Tran MD [address] [place] [address] PCP - General Internal Medicine 02/23/23 11/05/23 Harish Murrell [address] [place] [address] PCP - General Internal Medicine 11/06/23 documented as of this encounter
--- OUTSIDE RECORDS SUMMARY | 2025-01-05 15:23 | XMS_ITS | Encounter Summary ---
Author Organization [facility] Address [address] [place] [address] Care Team Providers Care Size Tester Name Role Phone Roxanne Wooten MD Primary Care Provider Unava ilNora Rodríguez MD Primary Care Provider Unavailab donald [facility], Pcp Primary Care Provider Unavailabl Vijaya Maldonado MD Primary Care Provider [phone] Harish Murrell Primary Care Provider Unavailab bennett Encounter Details Date Type Department Care Team Description 06/01/2014 Technical Programs Manager Report Medical Records [address] [place] [address] Emeli Roy MD Social History Tobacco Use [...] on filedocumented in this encounter Care Teams Size Tester Relationship Specialty Start Date End Date Roxanne Wooten MD PCP - General Internal Medicine 01/20/12 04/17/21 Nora Michelle MD PCP - General Internal Medicine 04/18/21 06/10/21 [facility], Pcp PCP - General Internal Medicine 06/11/21 02/22/23 Vijaya Tran MD [address] [place] [address] PCP - General Internal Medicine 02/23/23 11/05/23 Harish Murrell [address] [place] [address] PCP - General Internal Medicine 11/06/23 documented as of this encounter
--- OUTSIDE RECORDS SUMMARY | 2025-01-05 15:23 | XMS_ITS | Encounter Summary ---
Author Organization [facility] Address [address] [place] [address] Care Team Providers Care International Editorial Producer Name Role Phone Roxanne Wooten MD Primary Care Provider Unava ilNora Rodríguez MD Primary Care Provider Unavailab donald [facility], Pcp Primary Care Provider Unavailabl Vijaya Maldonado MD Primary Care Provider [phone] Harish Murrell Primary Care Provider Unavailab bennett Encounter Details Date Type Department Care Team Description 05/26/2014 Hospital Medical Records [address] [place] [address] Emeli Roy MD Social History Tobacco Use [...] on filedocumented in this encounter Care Teams International Editorial Producer Relationship Specialty Start Date End Date Roxanne Wooten MD PCP - General Internal Medicine 01/20/12 04/17/21 Nora Michelle MD PCP - General Internal Medicine 04/18/21 06/10/21 [facility], Pcp PCP - General Internal Medicine 06/11/21 02/22/23 Vijaya Tran MD [address] [place] [address] [place] [address] PCP - General Internal Medicine 02/23/23 11/05/23 Harish Murrell [address] [place] [address] PCP - General Internal Medicine 11/06/23 documented as of this encounter
== END 2025-01-05 13:18 | disposition home or self-care (01) ==
LOC: HO.HCS 12:47
PROVIDERS: PCP Physician Assistant; Visit Provider Internal Medicine Cardiovascular Disease
DX: I48.0 Paroxysmal atrial fibrillation (principal); Z95.2 Presence of prosthetic heart valve; R42 Dizziness and giddiness; R94.31 Abnormal electrocardiogram [ECG] [EKG]
CPT/HCPCS: 93010; 99214

== ENCOUNTER → 2025-01-05 12:46 | Outpatient (BNVA) | payer OTHER, SELFPAY | PROVIDERS: PCP Physician Assistant; Visit Provider Internal Medicine Cardiovascular Disease | DX: I48.0 Paroxysmal atrial fibrillation (principal); R42 Dizziness and giddiness; Z95.2 Presence of prosthetic heart valve | CPT/HCPCS: 93005 ==

== ENCOUNTER → 2025-01-20 13:40 | Outpatient (REF) | payer OTHER, SELFPAY ==
--- OUTSIDE RECORDS SUMMARY | 2025-01-20 13:44 | XMS_ITS | Clinical Summary ---
Author Organization [facility] Address [address] [place] [address] Phone Care Team Providers Care Chicken Fancier Name Role Phone Harish Farias Primary Care Provider Surgical History Surgery Date Site/Laterality Comments TONSILLECTOMY PROCEDURE: HISTORICAL TONSILLECTOMY OTHER SURGICAL HISTORY 05/26/14, 11/16/14 Right PROCEDURE: MN CYSTOURETHROSCOPY W/RMVL URETERAL CALCULUS; COMMENT: Dr. Roy, [facility] AORTIC VALVE REPLACEMENT 08/16/2015 PROCEDURE: HISTORICAL AORTIC VALVE REPL; COM[place]: [place] [facility] [place] 03/2018 Left PROCEDURE: MN BIOPSY BREAST OPEN INCISIONAL; COMMENT: Benign OTHER SURGICAL HISTORY 04/23/2016 Left PROCEDURE: PARTIAL REMOVAL OF THYROI; COMMENT: Dr. Corby Uriarte, [facility] OTHER SURGICAL HISTORY 04/13/2019 Left PROCEDURE: REFERRAL TO DERMATOLOGY [facility]GERY; COMMENT: Dr. Kate Oviedo; [facility] Medical History Medical History Date Comments [...] PM EDT Narrative 07/01/2024 3:[address] [facility] Diagnostic Imaging Department [address] [place] [id number] Patient: ??STEPHANIE MCCOLLUM ?/Age/Sex: 1960 - 63 - F Unit#: ??[id number] ? Location/Status: ??SPDIMAM/REG CLI ? Mnemonic/Ordering Site: ??DIGSC/SPMAM Ordering Physician: ??HARISH FARIAS PA-C [facility] Screening Digital - 07/01/24 - 1504 Report Status:Signed EXAM: [facility] Screening Digital EXAM DATE AND TIME: 07/01/2024 3:04 PM HISTORY: ??Annual screening COMPARISON: ??06/22/2023, 12/17/2022, 06/18/2022, 12/17/2021, 06/18/2021, 06/01/2020 and 02/22/2019 TECHNIQUE: Bilateral digital breast tomosynthesis was performed in the CC and MLO projections. Computer aided detection with [employer] 7.2-H and Snapsheet 3D 3.1 was employed. TISSUE DENSITY: a. [...] Dic Date/Time: ??07/01/24 154 Sign date/Time: ??07/01/24 1544 Procedure Note Elizabeth Harper MD - 07/09/2024 [facility] Diagnostic Imaging Department [address] [place] [address] Patient: STEPHANIE MCCOLLUM Cassandra GarzaB./Age/Sex: 1960 - 63 - F Unit#: [id number] [facility]/Ordering Site: [facility] Ordering Physician: HARISH FARIAS PA-C [facility] Screening Digital - 07/01/24 - 1504 Report Status:Signed EXAM: [facility] Screening Digital EXAM DATE AND TIME: 07/01/2024 3:04 PM HISTORY: Annual screening COMPARISON: 06/22/2023, 12/17/2022, 06/18/2022, 12/17/2021, 06/18/2021, 06/01/2020 and 02/22/2019 TECHNIQUE: Bilateral digital breast tomosynthesis was performed in the CCand MLO projections. Computer aided detection with [employer] 7.2-H [employer] 3D 3.1 was employed. TISSUE DENSITY: a. [...] RESULTING AGENCY - 06/17/2018 9:30 AM EDT [id number] THINPREP PAP, IMAGED: NEGATIVE FOR SQUAMOUS INTRAEPITHELIAL [...] Recently Relevant to Health Maintenance Care Teams Chicken Fancier Relationship Specialty Start Date End Date Harish Farias PA PCP - General 11/06/23
== END ==
LOC: HO.CARD 13:40
PROVIDERS: PCP Physician Assistant; Visit Provider Internal Medicine Cardiovascular Disease
DX: R42 Dizziness and giddiness (principal); I48.0 Paroxysmal atrial fibrillation
CPT/HCPCS: 93270

== ENCOUNTER → 2025-01-20 13:43 | Outpatient (BNV) | payer OTHER, SELFPAY | PROVIDERS: PCP Physician Assistant; Visit Provider Internal Medicine | DX: I47.10 Supraventricular tachycardia, unspecified (principal) | CPT/HCPCS: 93272 ==

== ENCOUNTER 2025-02-27 15:50 | Outpatient (AMB) | payer OTHER, SELFPAY ==
[2025-02-27 15:58] VITALS: BP 136/60; PULSE 56; TEMP 36.2; O2SAT 97; BMI 33.9
--- NOTE | 2025-02-27 15:58 | A.OFFPC_ITS ---
Vital Signs 02/27/25 15:58 Height 5 ft 1 in Weight 179 lb 6 oz BMI 33.9 BP 136/60 Blood Pressure Location Lt brachial Position Sitting Pulse 56 Pulse Source Pulse Oximeter Temp 97.1 F Temp Source Temporal Artery Scan Pulse Oximetry (%) 97 Oxygen Delivery Method Room Air Intake Visit Reasons: f/u DMII/ AVR/ HLD Budget Clerk Required: No Accompanied by: Self / Same As Patient Allergies amoxicillin (From Augmentin) Adverse Reaction (Intermediate, Verified 02/27/25 16:19) Rash clavulanic acid (From Augmentin) Adverse Reaction (Intermediate, Verified 02/27/25 16:19) Rash Medication List - Last Reconciled 02/27/25 by Harish Murrell PA-C atorvastatin 40 mg PO DAILY 90 days blood pressure monitor Testing once a day as needed lisinopril 10 mg PO DAILY 90 days metformin ER 1,000 mg (2 x 500 mg) PO BID 90 days metoprolol succinate ER 75 mg (1.5 x 50 mg) PO DAILY 90 days multivitamin 1 tab PO DAILY warfarin 5 mg PO DAILY warfarin mg PO Tobacco use date assessed: 02/27/25 Dental Screening Dental Screen Date: 02/27/25 Did you have a dental visit in the last 12 months?: Yes Did you have a dental problem in the last 6 months where you did not have access to dental care?: No Was dental information given to patient?: Patient has dentist HPI f/u DMII/ AVR/ HLD HPI Details Patient is a 64 year old? female here today for a routine annual physical.. Patient has a past medical history significant for type 2 diabetes obesity,? AVR ( on anticoagulation) hyperlipidemia, paroxysmal AFIB . .. AVR: Is on Anticoagulation , Has been set up with home meter for her INR. IS followed by warfarin clinic ( [facility]).? Denies any overt signs of bleeding. She does have an extensive cardiac family history as she has a mother and a sister both with valve replacements.? She has a brother and father whom had coronary artery disease needing coronary artery bypass. She has lost follow-up with her brand activation manager. Her most recent echocardiogram done in September of 2023 showing a good functioning aortic valve. She has no signs of overt heart failure. She has establish care with [facility], recently sent for a 30 day cardiac event monitor for reports a palpitations and results essentially stable. .. DMII: Has lost weight since last office visit, we did increase her metformin to max dose of 2000 mg. Does check her Bood sugars at home Reports sugars 140 - 190s.? She has been making dietary modifications. most recent a1c - 6.0 . Hypertension:? Patient's blood pressure acceptable today in office.. We have started lisinopril 10 mg and she has been more consistent with the use of lisinopril and blood pressures seem to be better. Will continue current doses of antihypertensive medication and will consider increasing lisinopril to 20 mg [facility] Medical History Family history of coronary arteriosclerosis Nephrolithiasis Basal cell carcinoma (BCC) in situ of skin Surgical History S/P AVR (aortic valve replacement) H/O lithotripsy H/O aortic valve replacement (~08/2015) Family History Father CAD (coronary artery disease) Mother Aortic valvular disorder Brother CAD (coronary artery disease) Aortic valvular disorder Sister Breast cancer CAD (coronary artery disease) Social History Housing: House Alcohol intake: never Patient Tobacco Use Status: Never used Tobacco e-Cigarette/Vaping Use: Never Used Second Hand Smoke Exposure: No service: No Current occupational status: employed Current occupation: ac[employer]ING [employer] Cognitive needs: No Hearing needs: No Vision needs: No Questionnaire PHQ-9 Over the last 2 weeks, how often have you been bothered by any of the following problems? 1. Little interest or pleasure in doing things: not at all 2. Feeling down, depressed, or hopeless: not at all 3. Trouble falling or staying asleep, or sleeping too much: not at all 4. Feeling tired or having little energy: not at all 5. Poor appetite or overeating: not at all 6. Feeling bad about yourself - or that you are a failure or have let yourself or your family down: not at all 7. Trouble concentrating on things, such as reading the newspaper or watching television: not at all 8. Moving or speaking so slowly that other people could have noticed. Or the opposite - being so fidgety or restless that you have been moving around a lot more than usual: not at all 9. Thoughts that you would be better off or of hurting yourself in some way: not at all Total score: 0 Depression Screening Interpretation: Negative Depression Screening Done: Yes 07232 - PHQ-9 Billing: Yes Source: Developed by Drs. Richard Rowe, Britt Silver, Jensen Bucio and colleagues, with an educational joaquina from [employer]. Thrive Questionnaire Date Thrive assessed: 02/27/25 I am a: Patient What is your living situation today?: I have a steady place to live Within the past 12 months, did the food you bought not last and you didn't have the money to get more?: Never true Within the past 12 months, did you worry whether your food would run out before you got money to buy more?: Never true Do you have trouble paying for medicines?: No Do you have trouble getting transportation to medical appointments?: No Do you have trouble paying your heating and electricity bill?: No Do you have trouble taking care of your child, family member or friend?: I choose not to answer this question Do you have trouble with day-to-day activities such as bathing, preparing meals, shopping, managing finances, etc.?: No Are you currently unemployed and looking for a job?: No Are you interested in more education?: No Please select the resources that you would like help with: None Currently or been in a relationship where the following occur: No concerns reported THRIVE Score: 0 AUDIT C Alcohol Use Questionnaire (AUDIT-C) 1. How often do you have a drink containing alcohol?: Never 3. How often do you have six or more drinks on one occasion?: Never Total Score: 0 GLENN-7 AMB Questionnaire GLENN-7 Date GLENN - 7 assessed: 02/27/25 Feeling nervous, anxious, or on edge: 0 = Not at all Not being able to stop or control worryin = Not at all Worrying too much about different things: 1 = Several days Trouble relaxin = Not at all Being so restless that it is hard to sit still: 0 = Not at all Becoming easily annoyed or irritable: 1 = Several days Feeling afraid as if something awful might happen: 0 = Not at all Total GLENN-7 score (0-4 normal; 5-9 mild; 10-14 moderate; 15-21 severe): 2 Source: Developed by Drs. Richard Rowe, Britt Silver, Jensen Bucio and colleagues, with an educational joaquina from [employer]. GLENN-7 Assessment Billing GLENN-7 Assessment Tool: GLENN-7 Assessment 49489 Review of Systems Const Denies headache(s) Eyes Denies loss of vision ENT Denies vertigo, Denies dizziness, Denies headache(s) and Denies sore throat Card Denies chest pain, Denies leg edema and Denies lightheadedness Resp Denies cough, Denies hemoptysis and Denies wheezing GI Denies abdominal pain, Denies melena, Denies constipation, Denies diarrhea and Denies vomiting Denies urinary frequency, Denies dysuria and Denies urinary urgency Musc Denies arthralgias, Denies joint swelling, Denies numbness and Denies tingling Neuro Denies Abnormal speech present, Denies behavioral changes, Denies vertigo, Denies dizziness, Denies headache(s), Denies loss of vision, Denies memory loss, Denies numbness and Denies tingling Psych Denies anxiety, Denies behavioral changes, Denies depression, Denies memory loss and Denies panic attacks Elias/Lymph Denies easy bleeding and Denies easy bruising Aller/Immun Denies wheezing Physical exam (Primary Care) Vital Signs: Last Vital Signs Temp 97.1 F 02/27/25 15:58 Pulse 56 02/27/25 15:58 BP 136/60 02/27/25 15:58 Pulse Ox 97 02/27/25 15:58 Oxygen Delivery Method Room Air 02/27/25 15:58 BMI result Body Mass Index 33.9 Tobacco/Smoking Status: Tobacco use Status Tobacco use date assessed 02/27/25 02/27/25 16:06 Patient Tobacco Use Status Never used Tobacco 02/27/25 15:59 e-Cigarette/Vaping Use Never Used 02/27/25 15:59 PHQ-9: PHQ-9 Score PHQ-9: Total score 0 02/27/25 16:19 Depression Screening Interpretation: Negative Thrive Assessment: Date of Thrive Assessment Date Thrive assessed 02/27/25 02/27/25 16:06 Currently or been in a relationship where the following occur: No concerns reported Const General: healthy appearing, no acute distress, alert and awake Nutritional Appearance: well nourished Orientation/consciousness: oriented to person, oriented to place and oriented to time HENMT Ears: TM's normal bilaterally General nose exam: Normal nasal mucous membranes and turbinates present Eyes Conjunctivae: conjunctivae normal Sclerae: sclerae normal Pupils: Equal, round and reactive pupils present Neck Neck: Yes no lymphadenopathy and Yes no JVD Thyroid: Thyroid normal Carotids: no bruits Resp Effort & Inspection: normal respiratory effort and not tachypneic Auscultation: no crackles, no rales, no rhonchi and no wheezes Cardio Rate: regular rate Rhythm: regular rhythm Heart sounds: no murmurs and normal S1 and S2 GI Palpation (GI): Soft to palpation, nontender, no hepatomegaly and no splenomegaly Auscultation: normal bowel sounds Skin General skin exam: no rashes or lesions noted and dry skin Neuro General: oriented to person, oriented to place and oriented to time Cranial nerves: Yes Equal, round and reactive pupils present Speech: No Abnormal speech present Gait exam (Neuro): Normal gait present Motor exam (neuro): no tremor noted Extrem Right upper extremity: full ROM Left upper extremity: full ROM Right lower extremity: full ROM; no edema Left lower extremity: full ROM; no edema Psych Mental Status: mental status grossly normal Speech and movement: Normal speech and movement present Affect: normal affect Attitude: cooperative Thought process: Normal thought process present Coding Level of Care Code Est Pt Level 4 (07263) Diagnoses Essential hypertension I10 Type 2 diabetes mellitus with hyperglycemia, without long-term current use of insulin E11.65 Diabetes mellitus exterminator termite insulin use: without senior care use Diabetes mellitus complication status: with hyperglycemia PAF (paroxysmal atrial fibrillation) I48.0 Status post mechanical aortic valve replacement Z95.2 Class 1 obesity E66.811 Additional Codes GLENN-7 Assessment Billing - GLENN-7 Assessment Tool: GLENN-7 Assessment 06195 ([id number]) PHQ-9 - 59342 - PHQ-9 Billing: Yes ([id number]) Assessment & Plan Assessment & Plan (1) Essential hypertension: Code(s): I10 - Essential (primary) hypertension Category: Medical Plan: Patient's blood pressure has improved with the additional lisinopril. Will continue to monitor blood pressure at home. Will consider increasing lisinopril to 20 mg. Goal blood pressure to be below 140/90 (2) DMII (diabetes mellitus, type 2): Code(s): E11.9 - Type 2 diabetes mellitus without complications Category: Medical Qualifiers: Diabetes mellitus exterminator termite insulin use: without exterminator termite use Diabetes mellitus complication status: with hyperglycemia Qualified Code(s): E11.65 - Type 2 diabetes mellitus with hyperglycemia Plan: Patient's type 2 diabetes well controlled with current dose of metformin. Today's A1c of 6.2. Goal A1c is to remain below 7.0 (3) PAF (paroxysmal atrial fibrillation): Code(s): I48.0 - Paroxysmal atrial fibrillation Category: Medical Plan: Patient continues to be anticoagulated with warfarin and rate control with metoprolol. Otherwise denies any recent dizziness or help palpitations. (4) Status post mechanical aortic valve replacement: Code(s): Z95.2 - Presence of prosthetic heart valve Category: Surgical Plan: Patient is status post mechanical aortic valve. She would like to reestablish care with Cardiology. Most recent echocardiogram done in September of 2023 showing stable functioning aortic valve. She has no overt signs of Congestive heart failure. She continues on warfarin and gets her INRs checked that a [facility] facility. (5) Class 1 obesity: Code(s): E66.811 - Obesity, class 1 Category: Medical Plan: Patient does understand her BMI is over 30 will continue working on being more physically active and adapting to better eating habits to reduce her weight. Orders: Orders Complete Blood Count no Diff 02/27/25 I48.0 - Paroxysmal atrial fibrillation Hemoglobin A1c 02/27/25 E11.65 - Type 2 diabetes mellitus with hyperglycemia Lipid Panel 02/27/25 E78.2 - Mixed hyperlipidemia Comprehensive [place]. Panel Fast 02/27/25 I48.0 - Paroxysmal atrial fibrillation AMB Hemoglobin A1c 02/27/25 E11.65 - Type 2 diabetes mellitus with hyperglycemia Patient Instructions: Goal: A1c to remain below 7.0, blood pressure is to remain below 140/90 Barriers: Adherence to physical activity and healthy eating habits
== END 2025-02-27 16:27 | disposition home or self-care (01) ==
LOC: HO.HMCH 15:51
PROVIDERS: PCP Physician Assistant; Visit Provider Physician Assistant
DX: E11.65 Type 2 diabetes mellitus with hyperglycemia (principal); I48.0 Paroxysmal atrial fibrillation; E66.811 Obesity, class 1; Z68.33 Body mass index [BMI] 33.0-33.9, adult; I10 Essential (primary) hypertension; Z95.2 Presence of prosthetic heart valve

== ENCOUNTER → 2025-02-27 15:50 | Outpatient (BNVA) | payer OTHER, SELFPAY | PROVIDERS: PCP Physician Assistant; Visit Provider Physician Assistant | DX: Z00.00 Encounter for general adult medical examination without abnormal findings (principal); E11.65 Type 2 diabetes mellitus with hyperglycemia; E66.811 Obesity, class 1; I48.0 Paroxysmal atrial fibrillation; I10 Essential (primary) hypertension; E78.2 Mixed hyperlipidemia; Z95.2 Presence of prosthetic heart valve; Z79.01 Long term (current) use of anticoagulants; Z68.33 Body mass index [BMI] 33.0-33.9, adult | CPT/HCPCS: 96127 ==

== ENCOUNTER 2025-06-07 11:38 | Outpatient (AMB) | payer OTHER, SELFPAY ==
[2025-06-07 11:42] VITALS: BP 120/68; PULSE 57; TEMP 36.1; O2SAT 96; BMI 33.7
--- NOTE | 2025-06-07 11:42 | A.OFFPC_ITS ---
Vital Signs 3 06/07/25 11:42 Height 5 ft 1 in Weight 178 lb 8 oz BMI 33.7 BP 120/68 Blood Pressure Location Lt brachial Position Sitting Pulse 57 Pulse Source Pulse Oximeter Temp 97.0 F Temp Source Temporal Artery Scan Pulse Oximetry (%) 96 Oxygen Delivery Method Room Air Intake Visit Reasons: neck pain Allergies amoxicillin (From Augmentin) Adverse Reaction (Intermediate, Verified 06/07/25 11:46) Rash clavulanic acid (From Augmentin) Adverse Reaction (Intermediate, Verified 06/07/25 11:46) Rash Tobacco use date assessed: 06/07/25 Dental Screening Dental Screen Date: 06/07/25 Did you have a dental visit in the last 12 months?: Yes Did you have a dental problem in the last 6 months where you did not have access to dental care?: No Was dental information given to patient?: Patient has dentist HPI neck pain 2 HPI0 Details The patient is a 64-year-old female presenting with morning stiffness in the right hand and concerns about scar tissue pain post-goiter removal. The patient reports that her right hand experiences significant stiffness upon waking, which has been occurring for approximately three months. She describes difficulty in closing her hand and requires hot water to alleviate the stiffness, which impacts her ability to perform tasks at work, such as counting money and writing. The patient also reports pain associated with scar tissue from a previous goiter removal surgery, which was performed in 2015 following open-heart surgery in 2014. She experiences sharp, poking pain when bending over, which she suspects may be related to sternum wires or scar tissue. The patient had a large goiter removed due to difficulty swallowing, which has improved post-surgery. She expresses concern about the possibility of the goiter or scar tissue growing back, noting a palpable mass in the neck area. [facility] Medical History Family history of coronary arteriosclerosis Nephrolithiasis Basal cell carcinoma (BCC) in situ of skin Surgical History S/P AVR (aortic valve replacement) H/O lithotripsy H/O aortic valve replacement (~08/2015) Family History Father CAD (coronary artery disease) Mother Aortic valvular disorder Brother CAD (coronary artery disease) Aortic valvular disorder Sister Breast cancer CAD (coronary artery disease) Social History Housing: House Alcohol intake: never Patient Tobacco Use Status: Never used Tobacco e-Cigarette/Vaping Use: Never Used Second Hand Smoke Exposure: No service: No Current occupational status: employed Current occupation: [employer] Cognitive needs: No Hearing needs: No Vision needs: No Questionnaire PHQ-9 Over the last 2 weeks, how often have you been bothered by any of the following problems? 1. Little interest or pleasure in doing things: not at all 2. Feeling down, depressed, or hopeless: not at all 3. Trouble falling or staying asleep, or sleeping too much: not at all 4. Feeling tired or having little energy: not at all 5. Poor appetite or overeating: not at all 6. Feeling bad about yourself - or that you are a failure or have let yourself or your family down: not at all 7. Trouble concentrating on things, such as reading the newspaper or watching television: not at all 8. Moving or speaking so slowly that other people could have noticed. Or the opposite - being so fidgety or restless that you have been moving around a lot more than usual: not at all 9. Thoughts that you would be better off or of hurting yourself in some way: not at all Total score: 0 Depression Screening Interpretation: Negative Depression Screening Done: Yes Source: Developed by Drs. Richard Rowe, Britt Silver, Jensen Bucio and colleagues, with an educational joaquina from [employer]. Thrive Questionnaire Date Thrive assessed: 02/20/25 I am a: Patient What is your living situation today?: I have a steady place to live Within the past 12 months, did the food you bought not last and you didn't have the money to get more?: Never true Within the past 12 months, did you worry whether your food would run out before you got money to buy more?: Never true Do you have trouble paying for medicines?: No Do you have trouble getting transportation to medical appointments?: No Do you have trouble paying your heating and electricity bill?: No Do you have trouble taking care of your child, family member or friend?: I choose not to answer this question Do you have trouble with day-to-day activities such as bathing, preparing meals, shopping, managing finances, etc.?: No Are you currently unemployed and looking for a job?: No Are you interested in more education?: No Please select the resources that you would like help with: None Currently or been in a relationship where the following occur: No concerns reported THRIVE Score: 0 AUDIT C Alcohol Use Questionnaire (AUDIT-C) 1. How often do you have a drink containing alcohol?: Never 3. How often do you have six or more drinks on one occasion?: Never Total Score: 0 GLENN-7 AMB Questionnaire GLENN-7 Date GLENN - 7 assessed: 02/27/25 Feeling nervous, anxious, or on edge: 0 = Not at all Not being able to stop or control worryin = Not at all Worrying too much about different things: 1 = Several days Trouble relaxin = Not at all Being so restless that it is hard to sit still: 0 = Not at all Becoming easily annoyed or irritable: 1 = Several days Feeling afraid as if something awful might happen: 0 = Not at all Total GLENN-7 score (0-4 normal; 5-9 mild; 10-14 moderate; 15-21 severe): 2 Source: Developed by Drs. Richard Rowe, Britt Silver, Jensen Bucio and colleagues, with an educational joaquina from [employer]. Review of Systems Const Denies headache(s) Eyes Denies loss of vision ENT Denies vertigo, Denies dizziness, Denies headache(s), Reports neck pain and Denies sore throat Card Denies chest pain, Denies leg edema and Denies lightheadedness Resp Denies cough, Denies hemoptysis and Denies wheezing GI Denies abdominal pain, Denies melena, Denies constipation, Denies diarrhea and Denies vomiting Denies urinary frequency, Denies dysuria and Denies urinary urgency Musc Details: + bilateral hand pain / stiffness Denies arthralgias, Denies joint swelling, Reports neck pain, Denies numbness and Denies tingling Neuro Denies Abnormal speech present, Denies behavioral changes, Denies vertigo, Denies dizziness, Denies headache(s), Denies loss of vision, Denies memory loss, Denies numbness and Denies tingling Psych Denies anxiety, Denies behavioral changes, Denies depression, Denies memory loss and Denies panic attacks Elias/Lymph Denies easy bleeding and Denies easy bruising Aller/Immun Denies wheezing Physical exam (Primary Care) Vital Signs: Last Vital Signs Temp 97.0 F 06/07/25 11:42 Pulse 57 06/07/25 11:42 BP 120/68 06/07/25 11:42 Pulse Ox 96 06/07/25 11:42 Oxygen Delivery Method Room Air 06/07/25 11:42 BMI result Body Mass Index 33.7 Tobacco/Smoking Status: Tobacco use Status Tobacco use date assessed 06/07/25 06/07/25 11:47 Patient Tobacco Use Status Never used Tobacco 06/07/25 11:47 e-Cigarette/Vaping Use Never Used 06/07/25 11:47 PHQ-9: PHQ-9 Score PHQ-9: Total score 0 06/07/25 11:47 Depression Screening Interpretation: Negative Thrive Assessment: Date of Thrive Assessment Date Thrive assessed 02/20/25 06/07/25 11:47 Currently or been in a relationship where the following occur: No concerns reported Const General: healthy appearing, no acute distress, alert and awake Nutritional Appearance: well nourished Orientation/consciousness: oriented to person, oriented to place and oriented to time HENMT Ears: TM's normal bilaterally General nose exam: Normal nasal mucous membranes and turbinates present Eyes Conjunctivae: conjunctivae normal Sclerae: sclerae normal Pupils: Equal, round and reactive pupils present Neck Neck: Yes no lymphadenopathy and Yes no JVD Thyroid: Thyroid normal Carotids: no bruits Neck images: 2 1. SOFT PALPABLE SUBCUTANEOUS MASS NOTED IN THE AREA OUTLINED Resp Effort & Inspection: normal respiratory effort and not tachypneic Auscultation: no crackles, no rales, no rhonchi and no wheezes Cardio Rate: regular rate Rhythm: regular rhythm Heart sounds: no murmurs and normal S1 and S2 GI Palpation (GI): Soft to palpation, nontender, no hepatomegaly and no splenomegaly Auscultation: normal bowel sounds Skin General skin exam: no rashes or lesions noted and dry skin Neuro General: oriented to person, oriented to place and oriented to time Cranial nerves: Yes Equal, round and reactive pupils present Speech: No Abnormal speech present Gait exam (Neuro): Normal gait present Motor exam (neuro): no tremor noted Extrem Right upper extremity: full ROM Left upper extremity: full ROM Right lower extremity: full ROM; no edema Left lower extremity: full ROM; no edema Psych Mental Status: mental status grossly normal Speech and movement: Normal speech and movement present Affect: normal affect Attitude: cooperative Thought process: Normal thought process present Results AMB Hemoglobin A1c 2 AMB Hemoglobin A1c 6.3 % Last Edit by Jennifer Quinn CMA on 06/07/25 11:51 Results Reviewed Results Reviewed: Laboratory Last Values Hgb A1c (Clinic) 6.3 % (4.0-6.0) H 06/07/25 11:48 Coding Level of Care Code Est Pt Level 4 (94670) Diagnoses Stiffness of joints of both hands M25.641; M25.642 Neck swelling R22.1 Pain of sternum R07.89 Assessment & Plan Assessment & Plan (1) Stiffness of joints of both hands: Code(s): M25.641 - Stiffness of right hand, not elsewhere classified; M25.642 - Stiffness of left hand, not elsewhere classified Category: Medical Plan: Patient with bilateral hand stiffness worse in the morning, will test JOHANN rheumatoid factor ect.. . Will send for x-rays of bilateral hands evaluate for any advanced arthritis. The use of Voltaren gel is suggested for symptomatic relief, and the patient is advised to consider compression gloves or a wrist splint at night. (2) Neck swelling: Code(s): R22.1 - Localized swelling, mass and lump, neck Category: Medical Plan: The plan includes ordering an ultrasound of the neck area to evaluate the mass and determine if it is related to scar tissue or a recurrence of the goiter. Additionally, an x-ray of the sternum and clavicle will be performed to assess any potential displacement of sternum wires. (3) Pain of sternum: Code(s): R07.89 - Other chest pain Category: Medical Plan: As above Orders: Orders 2 AMB Hemoglobin A1c Today Z13.9 - Encounter for screening, unspecified XR hand RT 2V Today M25.641 - Stiffness of right hand, not elsewhere classified, M25.642 - Stiffness of left hand, not elsewhere classified XR hand LT 2V Today M25.641 - Stiffness of right hand, not elsewhere classified, M25.642 - Stiffness of left hand, not elsewhere classified Rheumatoid Factor Today M25.641 - Stiffness of right hand, not elsewhere classified, M25.642 - Stiffness of left hand, not elsewhere classified XR sternoclavicular joint BI Today R07.89 - Other chest pain US soft tiss head and/or neck Today R22.1 - Localized swelling, mass and lump, neck TSH reflex Free T4 Today R22.1 - Localized swelling, mass and lump, neck Cyclic Citrullinated Peptide Today M25.641 - Stiffness of right hand, not elsewhere classified, M25.642 - Stiffness of left hand, not elsewhere classified JOHANN Reflex Titer and Pattern Today M25.641 - Stiffness of right hand, not elsewhere classified, M25.642 - Stiffness of left hand, not elsewhere classified Anti DNA DS Antibody Today M25.641 - Stiffness of right hand, not elsewhere classified, M25.642 - Stiffness of left hand, not elsewhere classified
--- OUTSIDE RECORDS SUMMARY | 2025-06-07 13:12 | XMS_ITS ---
Author Name [facility] Organization Unknown Care Team Organization Name Specialty Phone Email Start Date End Da te [facility] Termed, PROVIDER Primary Care 07/15/202204/07
--- OUTSIDE RECORDS SUMMARY | 2025-06-07 13:12 | XMS_ITS | Clinical Summary ---
Author Organization [facility] Address [address] [place] [address] Phone Care Team Providers Care Antenna Specialist Name Role Phone Harish Farias Primary Care Provider Surgical History Surgery Date Site/Laterality Comments TONSILLECTOMY PROCEDURE: HISTORICAL TONSILLECTOMY OTHER SURGICAL HISTORY 05/26/14, 11/16/14 Right PROCEDURE: OR CYSTOURETHROSCOPY W/RMVL URETERAL CALCULUS; COMMENT: Dr. Roy, [facility] [place] AORTIC VALVE REPLACEMENT 08/16/2015 PROCEDURE: HISTORICAL AORTIC VALVE REPL; COMMENT: Dr Sheth, [facility] BREAST BIOPSY 03/2018 Left PROCEDURE: OR BIOPSY BREAST OPEN INCISIONAL; COMMENT: Benign OTHER SURGICAL HISTORY 04/23/2016 Left PROCEDURE: PARTIAL REMOVAL OF THYROI; COMMENT: Dr. Corby Uriarte, [facility] OTHER SURGICAL HISTORY 04/13/2019 Left PROCEDURE: REFERRAL TO DERMATOLOGY [facility]; COMMENT: Dr. Kate Oviedo; [facility] Medical History Medical History Date Comments [...] Exam 1971 Zoster Vaccines (1 of 2) 2011 Pneumococcal Vaccine: 50+ Years (2 of 2 - PCV) 05/24/2016 05/24/2015 Cervical Cancer Screening: Pap Smear 06/11/2021 06/11/2018 RSV Immunization Adult Patients (1 - Risk 60-74 years 1-dose series) 2021 Cholesterol Screening (Lipid Panel) 08/05/2022 Colorectal Cancer Screening: Stool Based Tests (FOBT/FIT) 08/05/2022 HIV Screening 08/05/2022 Hepatitis C Screening 08/05/2022 Social Influencers of Health Screening 08/05/2022 Diabetes: Annual Urine Albumin-Creatinine Ratio (uACR) 08/20/2022 Diabetes: Blood Sugar Control Test (HGBA1C) 08/20/2022 Hypertension/CHF/CAD Annual BMP Blood Test 08/20/2022 Depression Screening 09/07/2024 COVID-19 Vaccine ( season) 2025 11/21/2020, 10/30/2020 Influenza Vaccine (#1) 2025 9, 06/02/2018, 05/25/2017, Additional history exists Breast Cancer Screening 07/01/2026 07/01/20 24, 06/14/2021, 06/01/2020, Additional history exists DTaP,Tdap,and Td [...] Procedure Name Priority Date/Time Associated Diagnosis Comments MARTIN SCREENING DIGITAL Routine 07/01/2024 3:43 PM EDT Encounter for screening mammogram for malignant neoplasm of breast PAP SMEAR Routine 06/11/2018 from Last 3 Months or Most Recently Relevant to Health Maintenance Results * MARTIN SCREENING DIGITAL (07/01/2024 3:43 PM EDT) Anatomical Region Laterality Modality Mammography 07/01/2024 2:50 PM EDT Narrative 07/01/2024 3:43 PM EDT [facility] Diagnostic Imaging Department [address] [place] [id number] Patient: STEPHANIE MCCOLLUM Cassandra GarzaB./Age/Sex: 1960 - 63 - F Unit#: [id number] Location/Status: [facility] CLI Mnemonic/Ordering Site: [facility] Ordering Physician: HARISH FARIAS PA-C [facility] Screening Digital - 07/01/24 - 1504 Report Status:Signed EXAM: [facility] Screening Digital EXAM DATE AND TIME: 07/01/2024 3:04 PM HISTORY: Annual screening COMPARISON: 06/22/2023, 12/17/2022, 06/18/2022, 12/17/2021, 06/18/2021, 06/01/2020 and 02/22/2019 TECHNIQUE: Bilateral digital breast tomosynthesis was performed in the CC and MLO projections. Computer aided detection with Tattoodo 7.2-H and Fieldbook 3D 3.1 was employed. TISSUE DENSITY: a. The breasts are almost entirely fatty. FINDINGS: No suspicious masses, grouped microcalcifications, or areas of architectural distortion are seen. The skin and vascularity are unremarkable. Stable biopsy markers in the left breast. Stable bilateral breast calcifications. IMPRESSION: Stable mammographic appearance of the breasts. No evidence of malignancy is seen. A negative mammogram in the presence of a clinically suspicious palpable abnormality does not preclude the possibility of malignancy or alter the indications for biopsy. BI-RADS: Category 2: Benign RECOMMENDATION(S): 1: Routine screening mammogram BILATERAL in 1 year. Dictating Physician: ELIZABETH HARPER MD Electronically Signed by: ELIZABETH HARPER MD Dic Date/Time: 07/01/24 1540 Sign date/Time: 07/01/24 154 Procedure Note Elizabeth Harper MD - 07/09/2024 [facility] Diagnostic Imaging Department [address] [place] [address] Patient: VEDASTEPHANIE Cassandra /Age/Sex: 1960 - 63 - F Unit#: [id number] Location/Status: [facility] CLI Mnemonic/Ordering Site: [facility] Ordering Physician: HARISH FARIAS PA-C [facility] Screening Digital - 07/01/24 - 1504 Report Status:Signed EXAM: [facility] Screening Digital EXAM DATE AND TIME: 07/01/2024 3:04 PM HISTORY: Annual screening COMPARISON: 06/22/2023, 12/17/2022, 06/18/2022, 12/17/2021, 06/18/2021, 06/01/2020 and 02/22/2019 TECHNIQUE: Bilateral digital breast tomosynthesis was performed in the CCand MLO projections. Computer aided detection with Tattoodo 7.2-H andiCAD Pro Found AI 3D 3.1 was employed. TISSUE DENSITY: a. [...] RESULTING AGENCY - 06/17/2018 9:30 AM EDT [id number] THINPREP PAP, IMAGED: NEGATIVE FOR SQUAMOUS INTRAEPITHELIAL LESION AND MALIGNANCY . ABUNDANT RED BLOOD CELLS ARE PRESENT. RESULT OF APTIMA HIGH RISK HPV ASSAY: NEGATIVE (SEROTYPES 16,18,31,33,35,39,45,51,52,56,58,59,66,68) SHER WHITE(ASCP) (CASE ELECTRONICALLY SIGNED 06 16 2018) ADEQUACY: SATISFACTORY. ENDOCERVICAL/TRANSFORMATION ZONE COMPONENT PRESENT. SOURCE: THINPREP PAP HPV ANY DX: REFLEX 16 AND 18, CERVICAL, IMAGED: CLINICAL INFORMATION: HPV ANY DIAGNOSIS. MENOPAUSE [Z12.4, Z01.419] us Leticia Victor MD LAB CYTOLOGY ORDERABLES Final Result HISTORICAL TESTING LAB RESULTING AGENCY from Last 3 Months or Most Recently Relevant to Health Maintenance Care Teams Antenna Specialist Relationship Specialty Start Date End Date Harish Farias PA PCP - General 11/06/23
== END 2025-06-07 12:26 | disposition home or self-care (01) ==
LOC: HO.HMCH 11:39
PROVIDERS: PCP Physician Assistant; Visit Provider Physician Assistant
DX: M25.641 Stiffness of right hand, not elsewhere classified (principal); M25.642 Stiffness of left hand, not elsewhere classified; R22.1 Localized swelling, mass and lump, neck; R07.89 Other chest pain; Z13.9 Encounter for screening, unspecified

== ENCOUNTER → 2025-06-07 11:38 | Outpatient (BNVA) | payer OTHER, SELFPAY | PROVIDERS: PCP Physician Assistant; Visit Provider Physician Assistant | DX: M25.641 Stiffness of right hand, not elsewhere classified (principal); M25.642 Stiffness of left hand, not elsewhere classified; R22.1 Localized swelling, mass and lump, neck; R07.89 Other chest pain | CPT/HCPCS: 83036; 96127 ==

== ENCOUNTER 2025-08-16 15:20 | Outpatient (REF) | payer OTHER, SELFPAY ==
--- NOTE | ~2025-08-16 | US_ITS ---
EXAMINATION: US HEAD NECK SOFT TISSUE CLINICAL INFORMATION: R22.1 - Localized swelling, mass and lump, neck. Patient with localized swelling/mass in the anterior neck. Status post goiter removal in 2016. No information provided and the patient is not aware if total or jorge-thyroidectomy. COMPARISON: None available. TECHNIQUE: Linear transducer kc-scale and color Doppler examination of the neck FINDINGS: Midline of lower neck: There is a 0.7 x 0.6 x 0.6 cm mixed cystic and solid nodule. Right lobe and isthmus of the thyroid gland appears grossly unremarkable. The probable identified left thyroid gland is diminutive in size, which suggests prior left partial hemithyroidectomy. Lower/supraclavicular left neck: Solid heterogeneous nodule measuring 3.3 x 2.7 x 2.2 cm. This is asymmetric from contralateral right side (limited images at similar level on the right side obtained for comparison purpose). US/US soft tiss head and/or neck IMPRESSION: 1. Sonographic findings suggestive of partial left hemithyroidectomy. 2. Solid nodule measuring 3.3 cm in the lower/supraclavicular region of the left neck. 3. Mixed cystic and solid 0.7 cm nodule at the midline of the lower neck. Recommend CT of the neck for better evaluation of the above described nodules. Electronically signed by: Gildardo Berkowitz MD 08/16/2025 04:30 PM SURENDRA
--- NOTE | ~2025-08-16 | XR_ITS ---
EXAMINATION: XR HAND, RIGHT CLINICAL INFORMATION: M25.641 - Stiffness of right hand, not elsewhere classified COMPARISON: None available. TECHNIQUE: PA, lateral, and oblique views of the right hand. FINDINGS: There is mild joint space narrowing and marginal osteophyte involving the second, third, fourth DIP joints, MCP, IP and CMC joint of the thumb, and second, third, and fourth MCP joints. Degenerative cystic changes present in the scaphoid tuberosity. There is moderate atherosclerotic calcifications in the radial artery. XR/XR hand RT 2V IMPRESSION: Mild degenerative changes consistent with osteoarthritis. Electronically signed by: Reji Hilton MD 08/16/2025 03:53 PM EST RP
--- NOTE | ~2025-08-16 | XR_ITS ---
EXAMINATION: XR STERNOCLAVICULAR JOINTS CLINICAL INFORMATION: R07.89 - Other chest pain COMPARISON: None available. TECHNIQUE: AP and oblique views of the sternoclavicular joints. FINDINGS: Moderate osteophytes are present in the proximal end of the clavicle adjacent to the sternoclavicular joint. The left sternoclavicular joint is unremarkable. There are mediastinal wires. There are surgical clips in the suprahilar regions. XR/XR sternoclavicular joint BI IMPRESSION: Moderate-sized osteophytes are present involving the proximal right clavicle adjacent to the SC joint. The left SI joint is unremarkable. Electronically signed by: Reji Hilton MD 08/16/2025 03:50 PM SURENDRA
--- NOTE | ~2025-08-16 | XR_ITS ---
EXAMINATION: XR HAND, LEFT CLINICAL INFORMATION: M25.641 - Stiffness of right hand, not elsewhere classified COMPARISON: None available. TECHNIQUE: PA, lateral, and oblique views of the left hand. FINDINGS: Small marginal osteophytes are evident involving the DIP joints of the second and third digits, MCP and IP joint of the thumb, and first CMC joint. Moderate atherosclerotic calcification is present in the radial artery. XR/XR hand LT 2V IMPRESSION: Mild degenerative changes are consistent with osteoarthritis. Electronically signed by: Reji Hilton MD 08/16/2025 03:56 PM EST
--- OUTSIDE RECORDS SUMMARY | 2025-08-16 23:52 | XMS_ITS | Encounter Summary ---
Author Organization [facility] Prior to 07/08/2024 Address [address] [place] [address] Care Team Providers Care Wiring Technician Name Role Phone Roxanne Wooten MD Primary Care Provider Unava ilNora Rodríguez MD Primary Care Provider Unavailab bennett [facility] Primary Care Provider UnavailVijaya Walsh MD Primary Care Provider [phone] Harish Murrell Primary Care Provider Kelly bennett Encounter Details Date Type Department Care Team Description 07/29/2017 Release of Information Medical Records [address] [place] [id number] Abstract, Provider Social History Tobacco Use Types [...] on filedocumented in this encounter Care Teams Wiring Technician Relationship Specialty Start Date End Date Roxanne Wooten MD PCP - General Internal Medicine 01/20/12 04/17/21 Nora Michelle MD PCP - General Internal Medicine 04/18/21 06/10/21 [facility] PCP - General Internal Medicine 06/11/21 02/22/23 Vijaya Tran MD [address] [place] [address] PCP - General Internal Medicine 02/23/23 11/05/23 Harish Murrell [address] [place] [id number] PCP - General Internal Medicine 11/06/23 documented as of this encounter
--- OUTSIDE RECORDS SUMMARY | 2025-08-16 23:52 | XMS_ITS | Encounter Summary ---
Author Organization [facility] Prior to 07/08/2024 Address [address] [place] [address] Care Team Providers Care Automotive Glass Technician Name Role Phone Roxanne Wooten MD Primary Care Provider Unava ilNora Rodríguez MD Primary Care Provider Unavailab donald [facility] Primary Care Provider UnavailVijaya Walsh MD Primary Care Provider [phone] Harish Murrell Primary Care Provider Unavailab bennett Encounter Details Date Type Department Care Team Description 08/03/2017 Concrete Tile Machine Operator Report Medical Records [address] [place] [id number] [place] Social History Tobacco [...] on filedocumented in this encounter Care Teams Automotive Glass Technician Relationship Specialty Start Date End Date Roxanne Wooten MD PCP - General Internal Medicine 01/20/12 04/17/21 Nora Michelle MD PCP - General Internal Medicine 04/18/21 06/10/21 [facility] PCP - General Internal Medicine 06/11/21 02/22/23 Vijaya Tran MD [address] [place] [address] PCP - General Internal Medicine 02/23/23 11/05/23 Harish Murrell [address] [place] [address] PCP - General Internal Medicine 11/06/23 documented as of this encounter
--- OUTSIDE RECORDS SUMMARY | 2025-08-16 23:52 | XMS_ITS | Encounter Summary ---
Author Organization [facility] Prior to 07/08/2024 Address [address] [place] [address] Care Team Providers Care Signal Timer Name Role Phone Roxanne Wooten MD Primary Care Provider Unava ilNora Rodríguez MD Primary Care Provider Unavailab [facility] Primary Care Provider UnavailVijaya Walsh MD Primary Care Provider [phone] Harish Murrell Primary Care [facility] Encounter Details Date Type Department Care Team Description 07/25/2015 Telephone Cardiology - [address] [address] Ning Spivey MD [address] [place] [address] [phone] Social History Tobacco Use Types Packs/Day Years [...] on filedocumented in this encounter Care Teams Signal Timer Relationship Specialty Start Date End Date Roxanne Wooten MD PCP - General Internal Medicine 01/20/12 04/17/21 Nora Michelle MD PCP - General Internal Medicine 04/18/21 06/10/21 [facility], Pcp PCP - General Internal Medicine 06/11/21 02/22/23 Vijaya Tran MD [address] [place] [address] PCP - General Internal Medicine 02/23/23 11/05/23 Harish Murrell [address] [place] [address] PCP - General Internal Medicine 11/06/23 documented as of this encounter
--- OUTSIDE RECORDS SUMMARY | 2025-08-16 23:52 | XMS_ITS | Encounter Summary ---
Author Organization Sophie [employer] [facility] Prior to 07/08/2024 Address [address] [place] [address] Care Team Providers Care Fire Sprinkler Service Technician Name Role Phone Roxanne Wooten MD Primary Care Provider Unava ilNora Rodríguez MD Primary Care Provider Unavailab le [facility], Pcp Primary Care Provider Unavailabl Vijaya Maldonado MD Primary Care Provider [phone] Harish Murrell Primary Care Provider Unavailab le Reason for Visit * Reason Onset Date Comments Cough 10/10/2019 Encounter Details Date Type Department Care Team Description 10/10/2019 Pt. Non Urgent Medical Question Adult Urgent Care - [address] [address] Roxanne Wooten MD Cough (Primary Dx) Social History Tobacco Use Types [...] encounter Miscellaneous Notes * Telephone Encounter - Shara Danielson M.A. - 10/11/2019 6:38 AM ESTFrom: Miracle Joseph To: Roxanne Wooten MD Sent: 10/10/2019 11:26 PM EST Subject: Coughing extremely bad all night Sorry I???m a pain. Been sleeping upright in recliner for two weeks now. Unable to sleep flat. Which is ok but as soon as I relax & try to drift off the constant coughing a lung up starts & I ??m up for hours. Feeling better on antibiotic in every area but this, will a few more days of antibiotic help this ?I???m going nuts because I can???t get any sleep. Tried warm water, throat soothers, covering nose & mouth. There s lots of meds I can t haveso that's about all I???ve tried. Please, any suggestions. I don???t understand why I have a great day like yesterday but have to then sleep completely sitting up to get a very very few hours sleep ! Sorry to email again. Thanks, Paulino Joseph documented in this encounter Plan of Treatment Not on file documented as of this encounter Results * RADIOLOGIC EXAM CHEST 2 VIEWS (10/12/2019 11:04 AM EST) 10/12/2019 11:0 5 AM EST Impressions [facility] - 10/12/2019 11:06 AM EST No evidence of active pathology in the chest. Narrative [facility] - 10/12/2019 11:06 AM EST History: Cough. Chest PA and lateral: Compared to 12/22/2015. Sternotomy changes with a valve implant marker again noted. The lungs remain clear. There are no infiltrates or effusions. The vasculature is not congested. The cardiac and mediastinal silhouettes appear normal. Mild degenerative changes are again noted in the spine. Procedure Note Shlomo Bernard MD - 10/12/2019 History: Cough. Chest PA and lateral: Compared to 12/22/2015. Sternotomy changes with avalve implant marker again noted. The lungs remain clear. There are no infiltrates oreffusions. The vasculature is not congested. The cardiac and mediastinal silhouettes appear normal.Mild degenerative changes are again noted in the spine. IMPRESSION No evidence of active pathology in the chest. Roxanne Wooten MD RADIOLOGY [facility] documented in this encounter Visit Diagnoses Diagnosis Cough- Primary Cough documented in this encounter Care Teams Fire Sprinkler Service Technician Relationship Specialty Start Date End Date Roxanne Wooten MD PCP - General Internal Medicine 01/20/12 04/17/21 Nora Michelle MD PCP - General Internal Medicine 04/18/21 06/10/21 [facility] PCP - General Internal Medicine 06/11/21 02/22/23 Vijaya Tran MD [address] [place] [address] PCP - General Internal Medicine 02/23/23 11/05/23 Harish Murrell [address] [place] [address] PCP - General Internal Medicine 11/06/23 documented as of this encounter
--- OUTSIDE RECORDS SUMMARY | 2025-08-16 23:52 | XMS_ITS | Encounter Summary ---
Author Organization Sophie [employer] [facility] Prior to 07/08/2024 Address [address] [place] [address] Care Team Providers Care Director Of Reimbursement Name Role Phone Roxanne Wooten MD Primary Care Provider Agustinava Nora Rolon MD Primary Care Provider Unavailab [facility] Primary Care Provider UnavailVijaya Walsh MD Primary Care Provider [phone] Harish Murrell Primary Care Provider Unavail Encounter Details Date Type Department Care Team Description 07/17/2017 Pt. Non Urgent Medical Question Cardiology - [address] [address] Ning Spivey MD [address] [place] [phone] Social History Tobacco Use Types Packs/Day Years [...] filedocumented in this encounter Care Teams Director Of Reimbursement Relationship Specialty Start Date End Date Roxanne Wooten MD PCP - General Internal Medicine 01/20/12 04/17/21 Nora Michelle MD PCP - General Internal Medicine 04/18/21 06/10/21 [facility] PCP - General Internal Medicine 06/11/21 02/22/23 Vijaya Tran MD [address] [place] [address] PCP - General Internal Medicine 02/23/23 11/05/23 Harish Murrell [address] [place] [address] PCP - General Internal Medicine 11/06/23 documented as of this encounter
--- OUTSIDE RECORDS SUMMARY | 2025-08-16 23:52 | XMS_ITS | Encounter Summary ---
Author Organization Sophie [employer] [facility] Prior to 07/08/2024 Address [address] [place] [address] Care Team Providers Care Cleaning Validation Consultant Name Role Phone Roxanne Wooten MD Primary Care Provider Unava ilable Nora Michelle MD Primary Care Provider Unavailab donald [facility] Primary Care Provider Unavailabl Vijaya Maldonado MD Primary Care Provider [phone] Harish Murrell Primary Care Provider Unavail Encounter Details Date Type Department Care Team Description 12/03/2016 Mold Construction Supervisor Report Medical Records [address] [place] [id number] Merlyn Chaudhari PA-C Social History Tobacco Use [...] on filedocumented in this encounter Care Teams Cleaning Validation Consultant Relationship Specialty Start Date End Date Roxanne Wooten MD PCP - General Internal Medicine 01/20/12 04/17/21 Nora Michelle MD PCP - General Internal Medicine 04/18/21 06/10/21 [facility] PCP - General Internal Medicine 06/11/21 02/22/23 Vijaya Tran MD [address] [place] [address] PCP - General Internal Medicine 02/23/23 11/05/23 Harish Murrell [address] [place] [id number] PCP - General Internal Medicine 11/06/23 documented as of this encounter
--- OUTSIDE RECORDS SUMMARY | 2025-08-16 23:52 | XMS_ITS | Encounter Summary ---
Author Organization Sophie [employer] [facility] Prior to 07/08/2024 Address [address] [place] [address] Care Team Providers Care Teacher Physically Impaired Name Role Phone Roxanne Wooten MD Primary Care Provider Unava ilNora Rodríguez MD Primary Care Provider Unavailab bennett [facility] Primary Care Provider UnavailVijaya Walsh MD Primary Care Provider [phone] Harish Murrell Primary Care Provider Kelly bennett Encounter Details Date Type Department Care Team Description 08/08/2015 Release of Information Medical Records [address] [place] [id number] Abstract, Provider Social History Tobacco Use Types [...] on filedocumented in this encounter Care Teams Teacher Physically Impaired Relationship Specialty Start Date End Date Roxanne Wooten MD PCP - General Internal Medicine 01/20/12 04/17/21 Nora Michelle MD PCP - General Internal Medicine 04/18/21 06/10/21 [facility] PCP - General Internal Medicine 06/11/21 02/22/23 Vijaya Tran MD [address] [place] [address] PCP - General Internal Medicine 02/23/23 11/05/23 Harish Murrell [address] [place] [address] PCP - General Internal Medicine 11/06/23 documented as of this encounter
--- OUTSIDE RECORDS SUMMARY | 2025-08-16 23:52 | XMS_ITS | Encounter Summary ---
Author Organization Sophie [employer] [facility] Prior to 07/08/2024 Address [address] [place] [address] Care Team Providers Care Console Attendant Name Role Phone Roxanne Wooten MD Primary Care Provider Unava ilNora Rodríguez MD Primary Care Provider Unavailab donald [facility] Primary Care Provider UnavailVijaya Walsh MD Primary Care Provider [phone] Harish Murrell Primary Care Provider Unavailab bennett Encounter Details Date Type Department Care Team Description 08/13/2015 Hospital Medical Records [address] [place] [address] Deven Sheth MD Social History Tobacco Use [...] on filedocumented in this encounter Care Teams Console Attendant Relationship Specialty Start Date End Date Roxanne Wooten MD PCP - General Internal Medicine 01/20/12 04/17/21 Nora Michelle MD PCP - General Internal Medicine 04/18/21 06/10/21 [facility] PCP - General Internal Medicine 06/11/21 02/22/23 Vijaya Tran MD [address] [place] [address] PCP - General Internal Medicine 02/23/23 11/05/23 Harish Murrell [address] [place] [address] PCP - General Internal Medicine 11/06/23 documented as of this encounter
--- OUTSIDE RECORDS SUMMARY | 2025-08-16 23:52 | XMS_ITS | Encounter Summary ---
Author Organization Sophie [employer] [facility] Prior to 07/08/2024 Address [address] [place] [address] Care Team Providers Care Messaging Architect Name Role Phone Roxanne Wooten MD Primary Care Provider Unava Nora Rolon MD Primary Care Provider Unavailab [facility] Primary Care Provider UnavailVijaya Walsh MD Primary Care Provider [phone] Harish Murrell Primary Care Provider Unavail Encounter Details Date Type Department Care Team Description 07/26/2015 Telephone Cardiology - [place] [address] [place] [phone] Ning Spivey MD [address] [place] [address] [phone] Social History Tobacco Use Types Packs/Day Years [...] encounter Miscellaneous Notes * Telephone Encounter - Roxanne Wooten MD - 07/26/2015 5:56 PM EST Thank you. She has already seen ENT (here) - no obvious bleeding sources identified, already advised care regarding further epistaxis episodes. She will be at risk for bleeding by being on warfarin but there is nothing to cauterize at this time. * Telephone Encounter - Ning Spivey MD - 07/26/2015 4:49 PM EST Called and spoke with Dr. Sheth yesterday. 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 Heis going to speak with Dr. Covarrubias of endocrine surgery about evaluating her. My concern is that her exercise tolerance is quite poor-just barely above 4 METs-and she won't be able to tolerate noncardiac surgery. After speaking with Dr. Covarrubias however, he feels that her goiter will likely not be an issue for valve surgery. He has an genny't to see her formally in two weeks. Generally goiters are well tolerated surgically as long as a smaller ETT is used and there is an experienced anesthesiologist. But will await formal recs from him. In the meantime pt should go forward with cath at [facility] to asses coronaries and possibly to assess gradients across the valve. Would try and get this set up with . Also pt going for ENT referral regarding tinnitus/vertigo symptoms and epistaxis. documented in this encounter Plan of Treatment Not on file documented as of this encounter Visit Diagnoses Not on filedocumented in this encounter Care Teams Messaging Architect Relationship Specialty Start Date End Date Roxanne Wooten MD PCP - General Internal Medicine 01/20/12 04/17/21 Nora Michelle MD PCP - General Internal Medicine 04/18/21 06/10/21 [facility] PCP - General Internal Medicine 06/11/21 02/22/23 [place] [address] PCP - General Internal Medicine 02/23/23 11/05/23 Harish Murrell [address] [place] [id number] PCP - General Internal Medicine 11/06/23 documented as of this encounter
--- OUTSIDE RECORDS SUMMARY | 2025-08-16 23:52 | XMS_ITS | Encounter Summary ---
Author Organization Sophie [employer] [facility] Prior to 07/08/2024 Address [address] [place] [address] Care Team Providers Care Auto Servicer Name Role Phone Roxanne Wooten MD Primary Care Provider Agustinava Nora Rolon MD Primary Care Provider Unavailab [facility] Primary Care Provider UnavailVijaya Walsh MD Primary Care Provider [phone] Harish Murrell Primary Care [facility] Encounter Details Date Type Department Care Team Description 07/25/2020 Pt. Non Urgent Medic al Question Adult Medicine [address] [address] Roxanne Wooten MD Social History Tobacco Use [...] AM EST Subject: prescription error Went to [facility] my Metformin ER 500 mg prescription this weekend...the script was written for 2 tabs a day and I was taking 3 tabs a day. [facility] [place] contacted you but hasn't received an answer [...] on filedocumented in this encounter Care Teams Auto Servicer Relationship Specialty Start Date End Date Roxanne Wooten MD PCP - General Internal Medicine 01/20/12 04/17/21 Nora Michelle MD PCP - General Internal Medicine 04/18/21 06/10/21 [facility] PCP - General Internal Medicine 06/11/21 02/22/23 Vijaya Tran MD [address] [place] [address] PCP - General Internal Medicine 02/23/23 11/05/23 Harish Murrell [address] [place] [id number] PCP - General Internal Medicine 11/06/23 documented as of this encounter
--- OUTSIDE RECORDS SUMMARY | 2025-08-16 23:52 | XMS_ITS | Encounter Summary ---
Author Organization Sophie [employer] [facility] Prior to 07/08/2024 Address [address] [place] [address] Care Team Providers Care Foot Doctor Name Role Phone Roxanne Wooten MD Primary Care Provider Unava ilNora Rodríguez MD Primary Care Provider Unavailab donald [facility] Primary Care Provider UnavailVijaya Walsh MD Primary Care Provider [phone] Harish Murrell Primary Care Provider Unavailab bennett Encounter Details Date Type Department Care Team Description 08/01/2015 Manager Group Report Medical Records [address] [place] [phone] Corby Uriarte MD Social History Tobacco Use Types Packs/Day [...] on filedocumented in this encounter Care Teams Foot Doctor Relationship Specialty Start Date End Date Roxanne Wooten MD PCP - General Internal Medicine 01/20/12 04/17/21 Nora Michelle MD PCP - General Internal Medicine 04/18/21 06/10/21 [facility] PCP - General Internal Medicine 06/11/21 02/22/23 Vijaya Tran MD [address] [place] [address] PCP - General Internal Medicine 02/23/23 11/05/23 Harish Murrell [address] [place] [address] PCP - General Internal Medicine 11/06/23 documented as of this encounter
--- OUTSIDE RECORDS SUMMARY | 2025-08-16 23:52 | XMS_ITS | Encounter Summary ---
Author Organization Sophie [employer] [facility] Prior to 07/08/2024 Address [address] [place] [address] Care Team Providers Care Imaging Specialist Name Role Phone Roxanne Wooten MD Primary Care Provider Unava Nora Rolon MD Primary Care Provider Unavailab le [facility], Pcp Primary Care Provider Unavailabl Vijaya Maldonado MD Primary Care Provider [phone] Harish Murrell Primary Care Provider Unavailab le Reason for Referral * Non ADOLFO (Routine) - Closed Specialty Diagnoses / Procedures Referred By Tony cleary Referred To Contact General Surgery Procedures REFERRAL TO GENERAL SURGERY Roxanne Wooten MD [address] [place] [address] Gen Surg/[place] 175 084 [facility] [address] [place] [id number] Referral ID Status Reason Start Date Expiration Date Visits Re quested Visits Authorized [id number] Closed 02/15/2018 02/15/2019 1 1 Encounter Details Date Type Department Care Team Description 02/15/2018 Orders Only Radiology - [place] [address] [place] [id number] Roxanne Wooten MD Abnormal mammogram with microcalcification (Primary Dx) Social History Tobacco Use Types [...] as of this encounter Visit Diagnoses Diagnosis Abnormal mammogram with microcalcification- Primary Mammographic microcalcification documented in this encounter Care Teams Imaging Specialist Relationship Specialty Start Date End Date Roxanne Wooten MD PCP - General Internal Medicine 01/20/12 04/17/21 Nora Michelle MD PCP - General Internal Medicine 04/18/21 06/10/21 [facility] PCP - General Internal Medicine 06/11/21 02/22/23 Vijaya Tran MD [address] [place] [address] PCP - General Internal Medicine 02/23/23 11/05/23 Harish Murrell [address] [place] [id number] PCP - General Internal Medicine 11/06/23 documented as of this encounter
--- OUTSIDE RECORDS SUMMARY | 2025-08-16 23:52 | XMS_ITS | Encounter Summary ---
Author Organization Sophie [employer] [facility] Prior to 07/08/2024 Address [address] [place] [address] Care Team Providers Care University Intern Name Role Phone Roxanne Wooten MD Primary Care Provider Unava ilable oNra Michelle MD Primary Care Provider Unavailab donald [facility] Primary Care Provider UnavailVijaya Walsh MD Primary Care Provider [phone] Harish Murrell Primary Care Provider Unavailab bennett Encounter Details Date Type Department Care Team Description 10/12/2017 Water Chemist Report Medical Records [address] [place] [phone] Elisa Andrew PA Social History Tobacco Use [...] on filedocumented in this encounter Care Teams University Intern Relationship Specialty Start Date End Date Roxanne Wooten MD PCP - General Internal Medicine 01/20/12 04/17/21 Nora Michelle MD PCP - General Internal Medicine 04/18/21 06/10/21 [facility] PCP - General Internal Medicine 06/11/21 02/22/23 Vijaya Tran MD [address] [place] [address] PCP - General Internal Medicine 02/23/23 11/05/23 Harish Murrell [address] [place] [address] PCP - General Internal Medicine 11/06/23 documented as of this encounter
--- OUTSIDE RECORDS SUMMARY | 2025-08-16 23:52 | XMS_ITS | Encounter Summary ---
Author Organization [employer] [facility] Prior to 07/08/2024 Address [address] [place] [address] Care Team Providers Care Capsule Machine Operator Name Role Phone Roxanne Wooten MD Primary Care Provider Unava ilNora Rodríguez MD Primary Care Provider Unavailab le [facility], Pcp Primary Care Provider Unavailabl Vijaya Maldonado MD Primary Care Provider Harish Murrell Primary Care Provider Unavailab le Reason for Visit * Reason Onset Date Comments Quality Outreach--Diabetes 08/18/2013 DM pa rtnership Encounter Details Date Type Department Care Team Description 08/18/2013 Telephone Adult [address] [address] Roxanne Wooten MD Quality Outreach--Diabetes (DM partnership) Social History Tobacco Use Types Packs/Day Years [...] Telephone Encounter - Cari Briceno R.N. - 08/18/2013 3:29 PM EST Called patient and spoke with her regarding possible DM partnership. Pt had an A1C of 7.1 in July down from 8.1! When asked about her efforts in reducing the number, Miracle states she reduced carbohydrates, fried and fatty foods as well as increased consumption of vegetables. In addition, she increased her exercise regime. Discussed Metformin side effects - Miracle states she had GI symptoms initially but that they have since dissipated. Offered to assist her with making an appt for an eye exam but pt declined stating she will make the appt with her own eye MD. Although the DM partnership was offered, Miracle declined at this time but was receptive to a f/u call in October after her appt FBS averages: 110 - 120 Post prandial averages: 160-170 PLAN: Order a repeat A1C for October prior to her appt with Dr. Wooten F/U with Miracle after appt to track progress Offer DM outreach as continued option Cari Briceno SIMULATION SPECIALIST Nurse Coat Fitter [facility] My hours are Mon-Fri 8:00am-4:30pm. * Telephone Encounter - Kacey Ravi CMA - 08/18/2013 12:39 PM EST Call transferred from [facility]. Spoke with pt she did not want to leave a voice mail. Advised Cari was at lunch and she would call her back after 1. Patient states that she will call back to speak withher. * Telephone Encounter - Cari Briceno R.N. - 08/18/2013 11:06 AM EST L/M for Miracle to callback re: possible DM partnership Plan: will f/u in one week documented in this encounter Plan of Treatment Not on file documented as of this encounter Results * (ABNORMAL) LIPID PROFILE (10/29/2013 9:36 AM EST) [facility] Cholesterol 189 0 - 200 mg/dL 10/29/2013 11:48 AM EST [facility] TRIGLYCERIDES 170(H) 0 - 150 mg/dL 10/29/2013 11:44 AM [facility] HDL CHOLESTEROL 44 >40 mg/dL 4 11:48 AM [facility] LDL CALCULATED 111(H) 0 - 100 mg/dL 10/29/2013 11:48 AM [facility] TC-HDLC RATIO 4 0.0 - 4.4 mg/dL 10/29/2013 11:48 AM [facility] 10/29/2013 9:36 AM EST 10/29/2013 9:37 AM EST Roxanne Wooten MD LAB Performing Organization Address [facility] Co de Phone Number [address] * (ABNORMAL) MICROALBUMIN/CREATININE, URINE (10/29/2013 9:36 AM EST) CREAT,RANDOM URINE 125 mg/dL 10/29/2013 11:40 AM [facility] MICROALBUMIN, RANDOM 169.0(H) 0.0 - 29.0 mg/L 10/29/2013 11:40 AM [facility] MICROALB/CRE RATIO RANDOM 135(H) <30.0 mg/g 10/29/2013 11:40 AM [facility] 10/29/2013 9:36 AM EST 10/29/2013 9:37 AM EST Roxanne Wooten MD LAB Performing Organization Address [facility] Co de Phone Number [address] * (ABNORMAL) BASIC METABOLIC PANEL (10/29/2013 9:36 AM EST) GLUCOSE 126(H) 70 - 100 mg/dL 10/29/2013 11:47 AM [facility] Comment: Reference range applicable to fasting specimens only Based on recommendations from the ADA and AACE, the fasting glucose reference range has been changed to 70-100 mg/dL. This change is effective January 21, 2010 BUN 7 5 - 25 mg/dL 10/29/2013 11:41 AM [facility] CREAT 0.4(L) 0.7 - 1.5 mg/dL 10/29/2013 11:44 AM [facility] GFR > 60 >60 10/29/2013 12:14 PM [facility] Comment: If patient is -Belarusian, multiply result by 1.21 Chronic Kidney Disease: < 60 ml/min/1.73 square meters Kidney Failure: < 15 ml/min/1.73 square meters Sodium 140 133 - 145 mEq/L 10/29/2013 11:12 AM [facility] Potassium 4.7 3.5 - 5.2 mEq/L 10/29/2013 11:12 AM [facility] Chloride 102 96 - 108 mEq/L 10/29/2013 11:12 AM [facility] CO2 27.4 21.0 - 32.0 mEq/L 10/29/2013 11:44 AM [facility] CALCIUM 9.2 8.5 - 10.5 mg/dL 10/29/2013 11:42 AM [facility] 10/29/2013 9:36 AM EST 10/29/2013 9:37 AM EST Roxanne Wooten MD LAB Performing Organization Address [facility] Co de Phone Number [address] * (ABNORMAL) HEMOGLOBIN A1C (10/29/2013 9:36 AM EST) Glycosylated Hemoglobin A1C 7.6(H) 4.0 - 6.0 % 10/29/2013 10:47 AM [facility] Comment: HbA1C VALUES MAY NOT ACCURATELY REFLECT MEAN BLOOD GLUCOSE IN PATIENTS WITH HEMOGLOBIN VARIANTS SUCH HbF, HbS. 10/29/2013 9:36 AM EST 10/29/2013 9:37 AM EST Roxanne Wooten MD LAB Performing Organization Address [facility] Co de Phone Number [address] documented in this encounter Visit Diagnoses Diagnosis Diabetes mellitus type 2, uncontrolled, with renal manifestations- Primary Type II or unspecified type diabetes mellitus with renal manifestations, uncontrolled documented in this encounter Care Teams Capsule Machine Operator Relationship Specialty Start Date End Date Roxanne Wooten MD PCP - General Internal Medicine 01/20/12 04/17/21 Nora Michelle MD PCP - General Internal Medicine 04/18/21 06/10/21 [facility] [place] PCP - General Internal Medicine 06/11/21 02/22/23 Vijaya Tran MD [address] [place] [address] PCP - General Internal Medicine 02/23/23 11/05/23 Harish Murrell [address] [place] [address] PCP - General Internal Medicine 11/06/23 documented as of this encounter
--- OUTSIDE RECORDS SUMMARY | 2025-08-16 23:52 | XMS_ITS | Clinical Summary ---
Author Organization [employer] [facility] Prior to 07/08/2024 Address [address] [place] [address] Care Team Providers Care Neurodiagnostic Technologist Name Role Phone Harish Murrell Primary Care Provider Unavailab le Allergies No known active allergies Medications Medication Sig Dispensed Refills Start Date End Date Status Multiple Vitamins-Minerals (WOMENS MULTIVITAMIN PLUS OR) Take 1 Tab by mouth daily. 0 Active Blood Glucose Calibration (FREESTYLE CONTROL SOLUTION) LIQDIndications:Type II or unspecified type diabetes mellitus without mention of complication, uncontrolled Test blood sugar tid 1 Each 5 03/01/2012 Active FREESTYLE LANCETS MiscIndications:Diab etes type 2, uncontrolled Test blood sugar 3 times daily 100 Each 5 09/10/2015 Active Cetirizine HCl (ZYRTEC ALLERGY) 10 MG Cap Take by mouth. 30 Cap 0 10/05/2015 Active Glucose Blood (FREESTYLE LITE) StripIndications:Moriah betes type 2, uncontrolled Apply 1 Strip topically 3 times daily. Test blood sugar tid 100 Strip 2 05/03/2018 Active warfarin (COUMADIN) 2.5 MG tabletIndications:S/ P AVR (aortic valve replacement) Take 1-2 Tabs by mouth daily. May cause heavy bleeding. Take at same time every day. Do not change dietary habits.or as directed by the A/C 90 Tab 3 12/23/2018 Active atorvastatin (LIPITOR) 40 MG tablet TAKE 1 TABLET BY MOUTH EVERY DAY 90 tablet 1 01/07/2021 Active metformin (GLUCOPHAGE-XR) 500 MG 24 hr tablet Take 3 Tablets by mouth daily (with breakfast). 270 tablet 1 01/21/2021 Active metoprolol (TOPROL-XL) 50 MG 24 hr tablet Take 1.5 Tablets by mouth daily. Please choose a new PCP and schedule an appt prior to next refill 135 tablet 0 03/18/2021 Active Active Problems Patient Care Coordination No te Formatting of this note is d ifferent from the original. Checking Your Blood Sugars Please check your blood sugars every day. Please check your sugars at the following times of day: before breakfast Your Blood Sugar Goals Pre Meal: 90-130 2 hours after meals: 110-160 Bedtime: 110-150 Use the Results Bring your glucometer to every appointment Write your fingerstick blood sugars down on a log sheet or record book. Bring them to your appointment Look for patterns in the numbers. The results help you and your provider make decisions about your diabetes treatment plan. Your Results and your Goals Your Result / Date of Completion Your Goal / How Often to Assess Component Value Date HGBA1C 6.5 12/08/2015 Less than 7%--- 2-4 times per year BP Readings from Last 1 Encounters: 12/20/15 118/52 Less than 130/80--- once per year Component Value Date LDL 129 12/08/2015 LDL less than 100--- once per year Component Value Date MALBUR 313.8 12/08/2015 Less than 30--- once per year Wt Readings from Last 1 Encounters: 12/20/15 267 lb (121.11 kg) Your goal weight by next visit: 200 --- reassess 2-4 times a year Health Maintenance Due Topic Date Due Dtap/tdap/td (#1 - Tdap) 1972 Colon Cancer Screening 2011 Baseline Health Exam 40-64 10/25/2012 Diabetes: Annual Care Plan 06/27/2015 Diabetes: Annual Foot Exam 06/30/2015 Your Action Plan Check blood glucose as directed and write down all results. Contact me if you experience any barriers to care such as inability to purchase your medication, difficulty getting to your appointments or difficulty understanding your care plan When to Call your Healthcare Provider If your blood sugar falls below 70 and you do not know why or you become unconscious If you are sick and unable to take liquids because or nausea or vomiting If you have a fever over 101 If your blood sugar is 300 or higher on greater than 3 separate occasions during the same week If you are just unsure what to do Educational Resources [place] Diabetes [employer] (www.diabetes.org) Centers for Disease Control and Prevention (www.cdc.gov/diabetes) This care plan was created in collaboration with Miracle Joseph on 12/20/2015 Problem Noted Date Basal cell carcinoma of skin 02/17/2019 Overview: Infiltrative type left nasolabial crease - 02/2019 - Mohs 04/2019 Right thyroid nodule 01/26/2018 Subclinical hypothyroidism 06/11/2017 S/P AVR (aortic valve replacement) 06/20 Pulmonary nodule, right 07/31/2015 Chronic thyroiditis 07/02/2015 Epistaxis, recurrent 12/29/2014 Overview: [facility] 12/23/14 - multiple episodes in the past Urolithiasis 06/27/2014 Overview: Bilateral renal calculi 12/2018 - left sided obstructive uropathy Morbid obesity 09/18/2013 Overview: BMI 42.18 on 07/21/13. Microalbuminuria 04/12/2013 Diabetes mellitus type 2, uncontrolled, with renal manifestations 03/01/2012 Overview: Fasting blood sugars <126 but A1c consistently 7.3 on 2 separate occasions. Vitamin D deficiency 10/25/2010 Nontoxic goiter 10/25/2010 Overview: Pls see note 11/01/13 for last US at [facility] 2008. Pt cannot tolerate hyperextending neck, declines further US, CT too expensive Left thyroid lobectomy, 04/23/2016, hyperplastic nodule, chronic lymphocytic thyroiditis Hypertension Hypercholesteremia Heart palpitations Resolved Problems Problem Noted Date Resolved Date Aortic stenosis 11/09/2014 06/22/2017 Overview: [facility] aortic valve replacement 08/16/2015 Cardiac murmur 12/03/2013 11/09/2014 Immunizations Name Administration Dates Next Due COVID-19 (Pfizer) 11/21/2020,10/30/2020 Influenza (> 6 Months) 05/26/2019,2017,05/25/2017,05/24,06/27/2014,05/27/2013,06/07/2012 ,06/24/2011 Influenza (>6 Months) Split Preservative Free 06/19/2016,05/24/2015 Influenza Flu (PT Reported) 07/08/2019, 8,05/25/2017 MMR (Kthnzgf-Gkuor-Kxwtkpr) 02/16/2019, 9 Pneumoccoccal(Adult) Polysac charide PPSV23 05/24/2015 Tdap 04/29/2018 Family History Medical History Relation Name Comments [place] Brother 2 Cardiac valve replacement Brother 3 Other Father heart problems CAD Mother DM, Cardiac sha ve replacement skin cancer Mother scc, bcc Diabetes Sister 2 Hypertension Sister 3 Cancer of the Breast Other mat aun t Cancer of the Colon Other uncle ma ternal CA Ovarian Negative Hx Relation Name Status Comments Brother 1 Alive CABG, Valve rep lacement, HTN Brother 2 Brother 3 Father CAD, HTN Mother Alive Valve replaceme nt, CABG, Basal cell CA Sister 1 Alive HTN Sister 2 Sister 3 Other Social History Tobacco Use Types Packs/Day Years Used Date Smoking Tobacco: Never Smokeless Tobacco: Never Tobacco Cessation:Counseling Given: Not Answered Alcohol Use Standard Drinks/Week Comments No 0 (1 standard drink = 0.6 oz pur e alcohol) Sex Assigned at Date Recorded Not on file Job Start Date Occupation Industry Not on file Not on file Not on file Last Filed Vital Signs Vital Sign Reading Time Taken Comments Blood Pressure 142/68 10/08/2023 11:49 AM EST Pulse 76 10/08/2023 11:29 AM EST Temperature 36.4 C (97.5 F) 10/08/2023 11:29 AM EST Respiratory Rate 14 10/08/2023 11:29 AM EST Oxygen Saturation 97% 10/25/2019 2:59 PM EST Inhaled Oxygen Concentration - - Weight 86.2 kg (190 lb) 10/08/2023 11:29 AM EST Height 152.4 cm (5') 10/08/2023 11:29 AM EST Body Mass Index 37.11 10/08/2023 11:29 AM EST Plan of Treatment Health Maintenance Due Date Last Done Comments SHINGLES VACCINE (1 of 2) 2011 COLON CANCER SCREEN WITH STO OL CARD 05/20/2019 05/20/2018 DIABETES: ANNUAL FOOT EXAM 10/28/201910/28, 06/22/2017, 06/30/2014, Additional history exists BASELINE HEALTH EXAM 40-64 10/28/2020 10/28/2018, DIABETES: BLOOD SUGAR CONTRO L TEST (HGBA1C) 03/24/2021 12/23/2020, 09/05/2020, 05/05/2020, Additional history exists DIABETES: ANNUAL EYE EXAM 04/13/20212019, 01/14/2019, 12/23/2017 (External Completion), Additional history exists MAMMOGRAM 06/01/2021 06/01/2020, 02/05, 03/18/2018, Additional history exists CERVICAL CANCER SCREENING 06/11/20212017, 01/20/2014, 12/16/2011, Additional history exists DIABETES/HEART DISEASE: KAYLA AL CHOLESTEROL (LDL) 09/05/2021 09/05/2020, 05/05/2020, 04/16/2019, Additional history exists DIABETES: ANNUAL URINE PROTE IN TEST (MICROALBUMIN) 09/05/2021 09/05/2020, 05/05/2020, 08/16/2018, Additional history exists BMI CHECK/ADVISE 09/07/2024 10/08/2023, , 10/25/2019, Additional history exists Covid-19 Vaccine (3 2022-2 4 season) 2025 11/21/2020, 10/30/2020 INFLUENZA (#1) 2025 07/08/2019, 05/08, 06/02/2018, Additional history exists PNEUMOCOCCAL VACCINE FOR HIG H RISK PATIENTS (#2) 2026 05/24/2015 DTAP/TDAP/TD (2 - Td or Tdap) 04/29/2028 04/29/2018 HEPATITIS C SCREENING Completed 08/13/2013 Care Teams Neurodiagnostic Technologist Relationship Specialty Start Date End Date Harish Murrell PCP - General Internal Medicine 11/06/23
--- OUTSIDE RECORDS SUMMARY | 2025-08-16 23:52 | XMS_ITS | Encounter Summary ---
Author Organization [employer] [facility] Prior to 07/08/2024 Address [address] [place] [address] Care Team Providers Care Superintendent Name Role Phone Roxanne Wooten MD Primary Care Provider Unava ilNora Rodríguez MD Primary Care Provider Unavailab le [facility], Pcp Primary Care Provider Unavailabl Vijaya Maldonado MD Primary Care Provider [phone] Harish Murrell Primary Care Provider Unavailab le Reason for Visit * Reason Onset Date Comments APPOINTMENT 07/31/2015 Encounter Details Date Type Department Care Team Description 07/31/2015 Telephone Radiology - [address] [address] Chepe Horan MD APPOINTMENT Social History Tobacco Use Types Packs/Day Years [...] encounter Miscellaneous Notes * Telephone Encounter - Chepe Horan MD - 07/31/2015 5:16 PM EST Discussed with the patient that she should have thyroid biopsy before the procedure and she agrees.Please schedule patient for thyroid biopsy. * Telephone Encounter - Hilary Gan - 07/31/2015 2:49 PM EST Patient calling back, please call her at [phone], thanks * Telephone Encounter - Chepe Horan MD - 07/31/2015 12:37 PM EST Message left. * Telephone Encounter - Karol Horne - 07/31/2015 8:[address] Horan, regarding our conversation on getting pt in sooner for thyroid biopsy. Pt is havinga cardiac cath put in on the , therefore she cannot make the appointment that was offered on the. She did cancel the August 14 appointment because of the surgery is scheduled for August 16. Pt is asking if she can have this done after her surgery. Please advise thank you documented in this encounter Plan of Treatment Not on file documented as of this encounter Visit Diagnoses Not on filedocumented in this encounter Care Teams Superintendent Relationship Specialty Start Date End Date Roxanne Wooten MD PCP - General Internal Medicine 01/20/12 04/17/21 Nora Michelle MD PCP - General Internal Medicine 04/18/21 06/10/21 [facility] PCP - General Internal Medicine 06/11/21 02/22/23 Vijaya Tran MD [address] [place] [address] PCP - General Internal Medicine 02/23/23 11/05/23 Harish Murrell [address] [place] [address] PCP - General Internal Medicine 11/06/23 documented as of this encounter
--- OUTSIDE RECORDS SUMMARY | 2025-08-16 23:52 | XMS_ITS | Encounter Summary ---
Author Organization [employer] [facility] Prior to 07/08/2024 Address [address] [place] [address] Care Team Providers Care Adjusto Writer Operator Name Role Phone Roxanne Wooten MD Primary Care Provider Agustinava Nora Rolon MD Primary Care Provider Unavailab donald [facility] Primary Care Provider Vijaya Mo MD Primary Care Provider [phone] Harish Murrell Primary Care Provider Unavail Encounter Details Date Type Department Care Team Description 03/03/2018 Orders Only General Surgery - [place] [address] [id number] Andrzej Sampson MD [address] [place] [address] Microcalcifications of the breast (Primary Dx) Social [...] microcalcification documented in this encounter Care Teams Adjusto Writer Operator Relationship Specialty Start Date End Date Roxanne Wooten MD PCP - General Internal Medicine 5/15/12 8/11/21 Nora Michelle MD PCP - General Internal Medicine 04/18/21 06/10/21 [facility] PCP - General Internal Medicine 06/11/21 02/22/23 Vijaya Tran MD [address] [place] [address] PCP - General Internal Medicine 02/23/23 11/05/23 Harish Murrell [address] [place] [address] PCP - General Internal Medicine 11/06/23 documented as of this encounter
--- OUTSIDE RECORDS SUMMARY | 2025-08-16 23:52 | XMS_ITS | Encounter Summary ---
Author Organization [facility] Prior to 07/08/2024 Address [address] [place] [address] Care Team Providers Care Machine Attendant Name Role Phone Roxanne Wooten MD Primary Care Provider Unava Nora Rolon MD Primary Care Provider Unavailab [facility] Primary Care Provider UnavailVijaya Walsh MD Primary Care Provider [phone] Harish Murrell Primary Care Provider Unavailab Encounter Details Date Type Department Care Team Description 07/30/2015 Pt. Non Urgent Medic al Question Adult Medicine [address] [address] Roxanne Wooten MD Social History Tobacco Use [...] reply to pt. I will forward to nurse to answer pt's questions about warfarin. * Katrina Romero M.A. - 07/30/2015 9:48 AM ESTFrom: Miracle Joseph To: Roxanne Wooten MD Sent: 07/30/2015 9:07 AM EST Subject: INFORMATION Wondering...if going on a blood thinner after the surgery is something they will instruct me about at the hospital OR do I have to talk to someone at [place] about that. Have questions, concerns about going on it and I didn't know if you have someone at [place] who handles that and could tell me more about being on it. Thanks, Miracle documented in this encounter Plan of Treatment Not on file documented as of this encounter Visit Diagnoses Not on filedocumented in this encounter Care Teams Machine Attendant Relationship Specialty Start Date End Date Roxanne Wooten MD PCP - General Internal Medicine 01/20/12 04/17/21 Nora Michelle MD PCP - General Internal Medicine 04/18/21 06/10/21 [facility] [place] PCP - General Internal Medicine 06/11/21 02/22/23 Vijaya Tran MD [address] [place] [address] PCP - General Internal Medicine 02/23/23 11/05/23 Harish Murrell [address] [place] [address] PCP - General Internal Medicine 11/06/23 documented as of this encounter
--- OUTSIDE RECORDS SUMMARY | 2025-08-16 23:52 | XMS_ITS | Encounter Summary ---
Author Organization [facility] [address] [facility] Prior to 07/08/2024 Address [address] [place] [address] Care Team Providers Care Early Childhood Associate Name Role Phone Roxanne Wooten MD Primary Care Provider Agustinava Nora Rolon MD Primary Care Provider Unavailab [facility] Primary Care Provider UnavailVijaya Walsh MD Primary Care Provider [phone] Harish Murrell [facility] Encounter Details Date Type Department Care Team Description 07/01/2017 Pt. Non Urgent Medical Question Cardiology - [address] [address] Ning Spivey MD [address] [place] [address] Social History Tobacco Use Types Packs/Day Years [...] on filedocumented in this encounter Care Teams Early Childhood Associate Relationship Specialty Start Date End Date Roxanne Wooten MD PCP - General Internal Medicine 01/20/12 04/17/21 Nora Michelle MD PCP - General Internal Medicine 04/18/21 06/10/21 [facility] PCP - General Internal Medicine 06/11/21 02/22/23 Vijaya Tran MD [address] [place] [address] PCP - General Internal Medicine 02/23/23 11/05/23 Harish Murrell [address] [place] [address] PCP - General Internal Medicine 11/06/23 documented as of this encounter
--- OUTSIDE RECORDS SUMMARY | 2025-08-16 23:52 | XMS_ITS | Encounter Summary ---
Author Organization [facility] Prior to 07/08/2024 Address [address] [place] [address] Care Team Providers Care Door Serviceman Name Role Phone [facility] Primary Care Provider Unavailabl Vijaya Maldonado MD Primary Care Provider [phone] Harish Murrell Primary Care Provider Unavailab bennett Encounter Details Date Type Department Care Team Description 12/31/2021 Mixer Driver Report Medical Records [address] [place] [id number] Jose Manuel Barrett MD Social History Tobacco [...] on filedocumented in this encounter Care Teams Door Serviceman Relationship Specialty Start Date End Date Community, Pcp PCP - General Internal Medicine 06/11/21 02/22/23 Vijaya Tran MD [address] [place] [id number] PCP - General Internal Medicine 02/23/23 11/05/23 Harish Murrell [address] [place] [address] PCP - General Internal Medicine 11/06/23 documented as of this encounter
--- OUTSIDE RECORDS SUMMARY | 2025-08-16 23:52 | XMS_ITS | Encounter Summary ---
Author Organization [facility] Prior to 07/08/2024 Address [address] [place] [address] Care Team Providers Care Exhibition Organiser Name Role Phone Roxanne Wooten MD Primary Care Provider Unava Nora Rolon MD Primary Care Provider Unavailab le [facility], Pcp Primary Care Provider Unavailabl Vijaya Maldonado MD Primary Care Provider [phone] Harish Murrell Primary Care Provider Unavailab le Reason for Visit * Reason Onset Date Comments Pre-visit Diabetes Lab Adult Medicine 09/03/202009/17 Encounter Details Date Type Department Care Team Description 09/03/2020 Telephone Adult Medicine [address] [address] Roxanne Wooten MD Pre-visit Diabetes Lab Adult Medicine (09/17) Social History Tobacco Use Types Packs/Day Years [...] have Coronavirus / COVID-19? No / Unsure 09/05/2020 11:23 AM EST documented as of this encounter Miscellaneous Notes * Telephone Encounter - Jody Sibley - 09/03/2020 9:07 AM EST Sent patient an email advising them to complete diabetic lab work at least three days prior to their upcoming appointment. documented in this encounter Plan of Treatment Not on file documented as of this encounter Visit Diagnoses Not on filedocumented in this encounter Care Teams Exhibition Organiser Relationship Specialty Start Date End Date Roxanne Wooten MD PCP - General Internal Medicine 01/20/12 04/17/21 Nora Michelle MD PCP - General Internal Medicine 04/18/21 06/10/21 [facility], [facility] PCP - General Internal Medicine 06/11/21 02/22/23 Vijaya Tran MD [address] [place] [address] PCP - General Internal Medicine 02/23/23 11/05/23 Harish Murrell [address] [place] [address] PCP - General Internal Medicine 11/06/23 documented as of this encounter
--- OUTSIDE RECORDS SUMMARY | 2025-08-16 23:52 | XMS_ITS | Encounter Summary ---
Author Organization Sophie [facility] Prior to 07/08/2024 Address [address] [place] [address] Care Team Providers Care Customizer Name Role Phone Roxanne Wooten MD Primary Care Provider Unava ilNora Rodríguez MD Primary Care Provider Unavailab donald [facility], [facility] Primary Care Provider UnavailVijaya Walsh MD Primary Care Provider [phone] Harish Murrell Primary Care Provider Unavailab bennett Encounter Details Date Type Department Care Team Description 01/12/2017 Meter Engineer Report Medical Records [address] [place] [address] Emeli Roy MD Social History Tobacco Use [...] on filedocumented in this encounter Care Teams Customizer Relationship Specialty Start Date End Date Roxanne Wooten MD PCP - General Internal Medicine 01/20/12 04/17/21 Nora Michelle MD PCP - General Internal Medicine 04/18/21 06/10/21 [facility], [facility] PCP - General Internal Medicine 06/11/21 02/22/23 Vijaya Tran MD [address] [place] [address] PCP - General Internal Medicine 02/23/23 11/05/23 Harish Murrell [address] [place] [address] PCP - General Internal Medicine 11/06/23 documented as of this encounter
--- OUTSIDE RECORDS SUMMARY | 2025-08-16 23:53 | XMS_ITS | Encounter Summary ---
Author Organization Sophie [employer] [facility] Prior to 07/08/2024 Address [address] [place] [address] Care Team Providers Care Mds Nurse Name Role Phone Roxanne Wooten MD Primary Care Provider Unava ilNora Rodríguez MD Primary Care Provider Unavailab donald [facility], [facility] Primary Care Provider UnavailVijaya Walsh MD Primary Care Provider Harish Murrell Primary Care Provider Unavailab bennett Encounter Details Date Type Department Care Team Description 05/22/2014 Inspector And Clerk Report Medical Records [address] [place] [address] Livier Boothe PA-C Social History Tobacco Use Types Packs/Day [...] on filedocumented in this encounter Care Teams Mds Nurse Relationship Specialty Start Date End Date Roxanne Wooten MD PCP - General Internal Medicine 01/20/12 04/17/21 Nora Michelle MD PCP - General Internal Medicine 04/18/21 06/10/21 [facility], [facility] PCP - General Internal Medicine 06/11/21 02/22/23 Vijaya Tran MD [address] [place] [address] PCP - General Internal Medicine 02/23/23 11/05/23 Harish Murrell [address] [place] [address] PCP - General Internal Medicine 11/06/23 documented as of this encounter
--- OUTSIDE RECORDS SUMMARY | 2025-08-16 23:53 | XMS_ITS | Encounter Summary ---
Author Organization [employer] [facility] Prior to 07/08/2024 Address [address] [place] [address] Care Team Providers Care Cardiology Technologist Name Role Phone Roxanne Wooten MD Primary Care Provider Nora Peres MD Primary Care Provider Unavailab [facility] Primary Care Provider Vijaya Mo MD Primary Care Provider [phone] Harish Murrell Primary Care Provider Unavail Encounter Details Date Type Department Care Team Description 12/13/2018 Orders Only Medical Records [address] [place] [address] Abstract, Provider Social History Tobacco Use Types [...] on filedocumented in this encounter Care Teams Cardiology Technologist Relationship Specialty Start Date End Date Roxanne Wooten MD PCP - General Internal Medicine 01/20/12 04/17/21 Nora Michelle MD PCP - General Internal Medicine 04/18/21 06/10/21 [facility], Pcp PCP - General Internal Medicine 06/11/21 02/22/23 Vijaya Tran MD [address] [place] [address] PCP - General Internal Medicine 02/23/23 11/05/23 Harish Murrell [address] [place] [address] PCP - General Internal Medicine 11/06/23 documented as of this encounter
--- OUTSIDE RECORDS SUMMARY | 2025-08-16 23:53 | XMS_ITS | Clinical Summary ---
Author Organization [facility] Address [address] [place] [address] Phone Care Team Providers Care Helmet Binder Name Role Phone Harish Farias Primary Care Provider [phone] Surgical History Surgery Date Site/Laterality Comments TONSILLECTOMY PROCEDURE: HISTORICAL TONSILLECTOMY OTHER SURGICAL HISTORY 05/26/14, 11/16/14 Right PROCEDURE: NE CYSTOURETHROSCOPY W/RMVL URETERAL CALCULUS; COMMENT: Dr. Roy, [facility] AORTIC VALVE REPLACEMENT 08/16/2015 PROCEDURE: HISTORICAL AORTIC VALVE REPL; COMMENT: Dr Sheth, [facility] BREAST BIOPSY 03/2018 Left PROCEDURE: NE BIOPSY BREAST OPEN INCISIONAL; COMMENT: Benign OTHER SURGICAL HISTORY 04/23/2016 Left PROCEDURE: PARTIAL REMOVAL OF THYROI; COMMENT: Dr. Corby Uriarte, [facility] OTHER SURGICAL HISTORY 04/13/2019 Left PROCEDURE: REFERRAL TO DERMATOLOGY [facility]; COMMENT: Dr. Kate Oviedo; [facility] Medical History Medical History Date Comments [...] on file Sexual Orientation Not on file Last Filed Vital Signs [...] 1971 Diabetes: Annual Retina Eye Exam 1971 RSV Immunization Adult Patients (1 - Risk 50-74 years 1-dose series) 2011 Zoster Vaccines (1 of 2) 2011 Pneumococcal Vaccine: 50+ Years (2 of 2 - PCV) 05/24/2016 05/24/2015 Cervical Cancer Screening: Pap Smear 06/11/2021 06/11/2018 Cholesterol Screening (Lipid Panel) 08/05/2022 Colorectal Cancer [...] PM EDT Narrative 07/01/2024 3:[address] [facility] Diagnostic Imaging Department [address] [place] [address] Patient: STEPHANIE MCCOLLUM Cassandra GarzaB./Age/Sex: 1960 - 63 - F Unit#: [id number] Location/Status: [facility] CLI Mnemonic/Ordering Site: [facility] Ordering Physician: HARISH FARIAS PA-C [facility] Screening Digital - 07/01/24 - 1504 Report Status:Signed EXAM: [facility] Screening Digital EXAM DATE AND TIME: 07/01/2024 3:04 PM HISTORY: Annual screening COMPARISON: 06/22/2023, 12/17/2022, 06/18/2022, 12/17/2021, 06/18/2021, 06/01/2020 and 02/22/2019 TECHNIQUE: Bilateral digital breast tomosynthesis was performed in the CC and MLO projections. Computer aided detection with [employer] 7.2-H and [employer] 3D 3.1 was employed. TISSUE DENSITY: a. [...] Date/Time: 07/01/24 1540 Sign date/Time: 07/01/24 1543 Procedure Note Elizabeth Harper MD - 07/09/[address] [facility] Diagnostic Imaging Department [address] [place] [address] Patient: VEDASTEPHANIE Cassandra /Age/Sex: 1960 - 63 - F Unit#: [id number] Location/Status: [facility] CLI Mnemonic/Ordering Site: [facility] Ordering Physician: HARISH FARIAS PA-C [facility] Screening Digital - 07/01/24 - 1504 Report Status:Signed EXAM: [facility] Screening Digital EXAM DATE AND TIME: 07/01/2024 3:04 PM HISTORY: Annual screening COMPARISON: 06/22/2023, 12/17/2022, 06/18/2022, 12/17/2021, 06/18/2021, 06/01/2020 and 02/22/2019 TECHNIQUE: Bilateral digital breast tomosynthesis was performed in the CCand MLO projections. Computer aided detection with [employer] 7.2-H andiCAD Pro Found Eved 3D 3.1 was employed. TISSUE DENSITY: a. [...] by: ELIZABETH HARPER MD Dic Date/Time: 07/01/24 154 Sign date/Time: 07/01/241542 Harish SANTOS IMG BI PROCEDURES Final Res ult * Pap smear (06/11/2018) 06/11/2018 Narrative HISTORICAL TESTING LAB RESULTING AGENCY - 06/17/2018 9:30 AM EDT [id number] THINPREP PAP, IMAGED: NEGATIVE FOR SQUAMOUS INTRAEPITHELIAL [...] Recently Relevant to Health Maintenance Care Teams Helmet Binder Relationship Specialty Start Date End Date Harish Farisa PA PCP - General 11/06/23
--- OUTSIDE RECORDS SUMMARY | 2025-08-16 23:53 | XMS_ITS | Encounter Summary ---
Author Organization Sophie [employer] [facility] Prior to 07/08/2024 Address [address] [place] [address] Care Team Providers Care Drum Sander Setter Name Role Phone Roxanne Wooten MD Primary Care Provider Unava ilNora Rodríguez MD Primary Care Provider Unavailab donald [facility] Primary Care Provider UnavailVijaya Walsh MD Primary Care Provider [phone] Harish Murrell Primary Care Provider Unavailab bennett Encounter Details Date Type Department Care Team Description 12/20/2018 Gas Meter Mechanic Report Medical Records [address] [place] [address] Betty Ruby NP Social History Tobacco Use [...] on filedocumented in this encounter Care Teams Drum Sander Setter Relationship Specialty Start Date End Date Roxanne Wooten MD PCP - General Internal Medicine 01/20/12 04/17/21 Nora Michelle MD PCP - General Internal Medicine 04/18/21 06/10/21 [facility], [facility] PCP - General Internal Medicine 06/11/21 02/22/23 Vijaya Tran MD [address] [place] [address] PCP - General Internal Medicine 02/23/23 11/05/23 Harish Murrell [address] [place] [address] PCP - General Internal Medicine 11/06/23 documented as of this encounter
--- OUTSIDE RECORDS SUMMARY | 2025-08-16 23:53 | XMS_ITS | Encounter Summary ---
Author Organization [facility] [employer] [facility] Prior to 07/08/2024 Address [address] [place] [address] Care Team Providers Care Engineering Test Specialist Name Role Phone Roxanne Wooten MD Primary Care Provider Unava ilNora Rodríguez MD Primary Care Provider Unavailab le [facility], Pcp Primary Care Provider Unavailabl Vijaya Maldonado MD Primary Care Provider [phone] Harish Murrell Primary Care Provider Unavailab le Reason for Visit * Reason Onset Date Comments medication problems 03/02/2012 Encounter Details Date Type Department Care Team Description 03/02/2012 Telephone Adult Medicine [address] [address] Roxanne oWoten MD medication problems Social History Tobacco Use [...] supplies already. * Telephone Encounter - Nicol HardingPDemiN. - 03/02/2012 4:19 PM EDT Free style [...] on filedocumented in this encounter Care Teams Engineering Test Specialist Relationship Specialty Start Date End Date Roxanne Wooten MD PCP - General Internal Medicine 01/20/12 04/17/21 Nora Michelle MD PCP - General Internal Medicine 04/18/21 06/10/21 [facility], Pcp PCP - General Internal Medicine 06/11/21 02/22/23 Vijaya Tran MD [address] [place] [address] PCP - General Internal Medicine 02/23/23 11/05/23 Harish Murrell [address] [place] [address] PCP - General Internal Medicine 11/06/23 documented as of this encounter
--- OUTSIDE RECORDS SUMMARY | 2025-08-16 23:53 | XMS_ITS | Encounter Summary ---
Author Organization [facility] Prior to 07/08/2024 Address [address] [place] [address] Care Team Providers Care Refinery Pipeline Operator Name Role Phone Roxanne Wooten MD Primary Care Provider Unava ilNora Rodríguez MD Primary Care Provider Unavailab donald [facility] Primary Care Provider UnavailVijaya Walsh MD Primary Care Provider [phone] Harish Murrell Primary Care Provider Kelly bennett Encounter Details Date Type Department Care Team Description 11/16/2014 [facility] Medical Records [address] [place] [address] Emeli Roy MD Social History Tobacco Use [...] on filedocumented in this encounter Care Teams Refinery Pipeline Operator Relationship Specialty Start Date End Date Roxanne Wooten MD PCP - General Internal Medicine 01/20/12 04/17/21 Nora Michelle MD PCP - General Internal Medicine 04/18/21 06/10/21 [facility], [facility] PCP - General Internal Medicine 06/11/21 02/22/23 Vijaya Tran MD [address] [place] [address] PCP - General Internal Medicine 02/23/23 11/05/23 Harish Murrell [address] [place] [address] PCP - General Internal Medicine 11/06/23 documented as of this encounter
--- OUTSIDE RECORDS SUMMARY | 2025-08-16 23:53 | XMS_ITS | Encounter Summary ---
Author Organization Sophie [employer] [facility] Prior to 07/08/2024 Address [address] [place] [address] Care Team Providers Care Gleason Gear Generator Name Role Phone Roxanne Wooten MD Primary Care Provider Unava ilNora Rodríguez MD Primary Care Provider Unavailab donald [facility] Primary Care Provider UnavailVijaya Walsh MD Primary Care Provider [phone] Harish Murrell Primary Care Provider Unavailab bennett Encounter Details Date Type Department Care Team Description 06/29/2014 Transfer Records Medical Records [address] [place] [address] Abstract, Provider Social History Tobacco Use Types [...] on filedocumented in this encounter Care Teams Gleason Gear Generator Relationship Specialty Start Date End Date Rxoanne Wooten MD PCP - General Internal Medicine 01/20/12 04/17/21 Nora Michelle MD PCP - General Internal Medicine 04/18/21 06/10/21 [facility], Pcp PCP - General Internal Medicine 06/11/21 02/22/23 Vijaya Tran MD [address] [place] [address] PCP - General Internal Medicine 02/23/23 11/05/23 Harish Murrell [address] [place] [address] PCP - General Internal Medicine 11/06/23 documented as of this encounter
--- OUTSIDE RECORDS SUMMARY | 2025-08-16 23:53 | XMS_ITS | Encounter Summary ---
Author Organization Sophie [employer] [facility] Prior to 07/08/2024 Address [address] [place] [address] Care Team Providers Care Flattening Press Operator Name Role Phone Roxanne Wooten MD Primary Care Provider Unava ilNora Rodríguez MD Primary Care Provider Unavailab donald [facility] Primary Care Provider UnavailVijaya Walsh MD Primary Care Provider [phone] Harish Murrell Primary Care Provider Unavailab bennett Encounter Details Date Type Department Care Team Description 08/30/2015 Carcass Washer Report Medical Records [address] [place] [address] Cheyenne Simeon Social History Tobacco Use Types [...] on filedocumented in this encounter Care Teams Flattening Press Operator Relationship Specialty Start Date End Date Roxanne Wooten MD PCP - General Internal Medicine 01/20/12 04/17/21 Nora Michelle MD PCP - General Internal Medicine 04/18/21 06/10/21 [facility], [facility] PCP - General Internal Medicine 06/11/21 02/22/23 Vijaya Tran MD [address] [place] [address] PCP - General Internal Medicine 02/23/23 11/05/23 Harish Murrell [address] [place] [address] PCP - General Internal Medicine 11/06/23 documented as of this encounter
--- OUTSIDE RECORDS SUMMARY | 2025-08-16 23:53 | XMS_ITS | Encounter Summary ---
Author Organization [facility] [employer] [facility] Prior to 07/08/2024 Address [address] [place] [address] Care Team Providers Care Industrial Roof Plumber Name Role Phone Roxanne Wooten MD Primary Care Provider Unava Nora Rolon MD Primary Care Provider Unavailab [facility] Primary Care Provider UnavailVijaya Walsh MD Primary Care Provider [phone] Harish Murrell Primary [facility] Encounter Details Date Type Department Care Team Description 08/10/2018 Pt. Non Urgent Medic al Question Adult Medicine [address] [address] Roxanne Wooten MD Social History Tobacco Use [...] Progress Notes * Shara Danielson M.A. - 08/11/2018 8:29 AM ESTFrom: Miracle Joseph To: Roxanne Wooten MD Sent: 08/10/2018 3:21 PM EST Subject: phone call/appointment My 08/26 appointment with Almaz Callejas was for a sugar recheck I believe and has nothing to do with Lovenox as they kept mentioning to me. I was just trying to simply reschedule an appointment because I???m unable to make that date and it turned into this giant thing. I still don???t see why I couldn???t just get sugar labs done in September and get the results, good or bad from my appointment on October 28 that I have with you...why do I have to have a whole other appointment just to get one lab test result. And, why isn???t it noted in my records that I test at home, this has been discussed before...l call it into [facility] calls me with my dosing, they also monitor me when I have surgical stuff done and bridge with Lovenox. I realize you were concerned and appreciate your calling me. But I didn???t need to hear the message about the blood clot. I???m very aware of the dangers and take my Warfarin dosing very seriously. I did make a follow up with Cassandra Callejas on 09/13/18...fingers crossed I???ll be done jury by then. I will have labs done the weekend before the appointment. I???m only trying to limit unnecessary doctor visits. documented in this encounter Plan of Treatment Not on file documented as of this encounter Visit Diagnoses Not on filedocumented in this encounter Care Teams Industrial Roof Plumber Relationship Specialty Start Date End Date Roxanne Wooten MD PCP - General Internal Medicine 01/20/12 04/17/21 Nora Michelle MD PCP - General Internal Medicine 04/18/21 06/10/21 [facility] Pcp PCP - General Internal Medicine 06/11/21 02/22/23 Vijaya Tran MD [address] [place] [address] PCP - General Internal Medicine 02/23/23 11/05/23 Harish Murrell [address] [place] [address] PCP - General Internal Medicine 11/06/23 documented as of this encounter
--- OUTSIDE RECORDS SUMMARY | 2025-08-16 23:53 | XMS_ITS | Encounter Summary ---
Author Organization Sophie [facility] Prior to 07/08/2024 Address [address] [place] [address] Care Team Providers Care Toll Relief Operator Name Role Phone Roxanne Wooten MD Primary Care Provider Unava Nora Rolon MD Primary Care Provider Unavailab [facility] Primary Care Provider UnavailVijaya Walsh MD Primary Care Provider [phone] Harish Murrell Primary Care Provider Unavail Encounter Details Date Type Department Care Team Description 01/10/2014 Telephone Adult [address] [address] Roxanne Wooten MD Social History Tobacco Use [...] on filedocumented in this encounter Care Teams Toll Relief Operator Relationship Specialty Start Date End Date Roxanne Wooten MD PCP - General Internal Medicine 01/20/12 04/17/21 Nora Michelle MD PCP - General Internal Medicine 04/18/21 06/10/21 [facility] PCP - General Internal Medicine 06/11/21 02/22/23 Vijaya Tran MD [address] [place] [address] PCP - General Internal Medicine 02/23/23 11/05/23 Harish Murrell [address] [place] [address] PCP - General Internal Medicine 11/06/23 documented as of this encounter
--- OUTSIDE RECORDS SUMMARY | 2025-08-16 23:53 | XMS_ITS | Encounter Summary ---
Author Organization Sophie [facility] Prior to 07/08/2024 Address [address] [place] [address] Care Team Providers Care Shank Threader Name Role Phone Roxanne Wooten MD Primary Care Provider Unava ilNora Rodríguez MD Primary Care Provider Unavailab le [facility], Pcp Primary Care Provider Unavailabl Vijaya Maldonado MD Primary Care Provider [phone] Harish Murrell Primary Care Provider Unavailab le Reason for Referral * Non ADOLFO (Priority) - Authorized/Booked Specialty Diagnoses / Procedures Referred By Tony cleary Referred To Contact Dermatology Diagnoses Neoplasm of uncertain behavior Procedures REFERRAL TO DERMATOLOGY Sylvia Callejas PA-C [address] [place] [address] Derm/[place] [address] [place] [address] Referral ID Status Reason Start Date Expiration Date V isits Requested Visits Authorized [id number] Authorized/B ooked 01/17/2019 01/17/2020 1 1 Reason for Visit * Reason Onset Date Comments skin problems 01/17/2019 Encounter Details Date Type Department Care Team Description 01/17/2019 Pt. Non Urgent Medical Question Adult [address] [address] Roxanne Wooten MD Neoplasm of uncertain behavior [...] to go have it checked by a leather belt shaper. Is there someone you can recommend that I could contact directly for an appointment. 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
--- OUTSIDE RECORDS SUMMARY | 2025-08-16 23:53 | XMS_ITS | Encounter Summary ---
Author Organization Sophie [employer] [facility] Prior to 07/08/2024 Address [address] [place] [address] Care Team Providers Care Editing Clerk Name Role Phone Roxanne Wooten MD Primary Care Provider Unava ilNora Rodríguez MD Primary Care Provider Unavailab donald [facility] Primary Care Provider UnavailVijaya Walsh MD Primary Care Provider [phone] Harish Murrell Primary Care Provider Unavailab bennett Encounter Details Date Type Department Care Team Description 09/27/2015 Rn Ent Report Medical Records [address] [place] [address] Cheyenne Simeon Social History Tobacco Use Types [...] on filedocumented in this encounter Care Teams Editing Clerk Relationship Specialty Start Date End Date Roxanne Wooten MD PCP - General Internal Medicine 01/20/12 04/17/21 Nora Michelle MD PCP - General Internal Medicine 04/18/21 06/10/21 [facility], [facility] PCP - General Internal Medicine 06/11/21 02/22/23 Vijaya Tran MD [address] [place] [address] PCP - General Internal Medicine 02/23/23 11/05/23 Harish Murrell [address] [place] [address] PCP - General Internal Medicine 11/06/23 documented as of this encounter
--- OUTSIDE RECORDS SUMMARY | 2025-08-16 23:53 | XMS_ITS | Encounter Summary ---
Author Organization Sophie [facility] Prior to 07/08/2024 Address [address] [place] [address] Care Team Providers Care Check Pilot Name Role Phone Roxanne Wooten MD Primary Care Provider Unava Nora Rolon MD Primary Care Provider Unavailab [facility] Primary Care Provider UnavailVijaya Walsh MD Primary Care Provider [phone] Harish Murrell Primary Care Provider Unavail Encounter Details Date Type Department Care Team Description 07/21/2018 Refill Adult Medicine [address] [address] Roxanne Wooten MD Social History Tobacco Use [...] encounter Miscellaneous Notes * Telephone Encounter - Minerva Jaimes M.A. - 07/22/2018 8:58 AM EST Keyshawn 04/29/18 Nov 08/26 Lab Results Component Value Date CHOL 182 02/06/2018 LDL 89 02/06/2018 HDL 46 02/06/2018 TRIG 235 02/06/2018 * Telephone Encounter - Minerva Jaimes M.A. - 07/22/2018 8:58 AM ESTFrom: Miracle Joseph To: Roxanne Wooten MD Sent: 07/21/2018 6:24 PM EST Subject: Medication Renewal Request Original authorizing provider: MD Miracle Quigley would like a refill of the following medications: atorvastatin (LIPITOR) 40 MG tablet [Roxanne Wooten MD] Preferred pharmacy: [address] Comment: Would like quantity of 90 pills so I don???t have to go to pharmacy as often please and thanks. documented in this encounter Plan of Treatment Not on file documented as of this encounter Visit Diagnoses Not on filedocumented in this encounter Care Teams Check Pilot Relationship Specialty Start Date End Date Roxanne Wooten MD PCP - General Internal Medicine 01/20/12 04/17/21 Nora Michelle MD PCP - General Internal Medicine 04/18/21 06/10/21 [facility] PCP - General Internal Medicine 06/11/21 02/22/23 Vijaya Tran MD [address] [place] [address] PCP - General Internal Medicine 02/23/23 11/05/23 Harish Murrell [address] [place] [address] PCP - General Internal Medicine 11/06/23 documented as of this encounter
--- OUTSIDE RECORDS SUMMARY | 2025-08-16 23:53 | XMS_ITS | Encounter Summary ---
Author Organization [facility] Prior to 07/08/2024 Address [address] [place] [address] Care Team Providers Care Inspector Tool Name Role Phone Roxanne Wooten MD Primary Care Provider Unava ilable Nora Michelle MD Primary Care Provider Unavailab [facility] Primary Care Provider UnavailVijaya Walsh MD Primary Care Provider [phone] Harish Murrell [facility] Encounter Details Date Type Department Care Team Description 09/09/2015 Refill Adult Medicine [address] [address] Sylvia Callejas PA-C [address] [place] [address] Social History Tobacco Use Types Packs/Day Years [...] on filedocumented in this encounter Care Teams Inspector Tool Relationship Specialty Start Date End Date Roxanne Wooten MD PCP - General Internal Medicine 01/20/12 04/17/21 Nora Michelle MD PCP - General Internal Medicine 04/18/21 06/10/21 [facility], Pcp PCP - General Internal Medicine 06/11/21 02/22/23 Vijaya Tran MD [address] [place] [address] [id number] PCP - General Internal Medicine 02/23/23 11/05/23 Harish Murrell [address] [place] [address] PCP - General Internal Medicine 11/06/23 documented as of this encounter
--- OUTSIDE RECORDS SUMMARY | 2025-08-16 23:53 | XMS_ITS | Encounter Summary ---
Author Organization Sophie [facility] Prior to 07/08/2024 Address [address] [place] [address] Care Team Providers Care Music Industry Intern Name Role Phone Roxanne oWoten MD Primary Care Provider Unava ilNora Rodríguez MD Primary Care Provider Unavailab donald [facility] Primary Care Provider UnavailVijaya Walsh MD Primary Care Provider [phone] Harish Murrell Primary Care Provider Unavailab bennett Encounter Details Date Type Department Care Team Description 08/16/2015 [facility] Medical Records [address] [place] [address] Deven Sheth MD Social History Tobacco Use [...] on filedocumented in this encounter Care Teams Music Industry Intern Relationship Specialty Start Date End Date Roxanne Wooten MD PCP - General Internal Medicine 01/20/12 04/17/21 Nora Michelle MD PCP - General Internal Medicine 04/18/21 06/10/21 [facility] PCP - General Internal Medicine 06/11/21 02/22/23 Vijaya Tran MD [address] [place] [address] PCP - General Internal Medicine 02/23/23 11/05/23 Harish Murrell [address] [place] [address] PCP - General Internal Medicine 11/06/23 documented as of this encounter
--- OUTSIDE RECORDS SUMMARY | 2025-08-16 23:53 | XMS_ITS | Encounter Summary ---
Author Organization Sophie [employer] [facility] Prior to 07/08/2024 Address [address] [place] [address] Care Team Providers Care Denitrator Name Role Phone Roxanne Wooten MD Primary Care Provider Unava ilNora Rodríguez MD Primary Care Provider Unavailab [facility] Primary Care Provider UnavailVijaya Walsh MD Primary Care Provider [phone] Harish Murrell Primary Care Provider Unavail Encounter Details Date Type Department Care Team Description 05/10/2014 Orders Only Radiology - [place] [address] [place] [address] Merlyn Chaudhari PA-C Type II or unspecified type diabetes mellitus without mention of complication, not stated as uncontrolled (Primary Dx) Social History Tobacco Use Types [...] as of this encounter Visit Diagnoses Diagnosis Type II or unspecified type diabetes mellitus without mention of complication, not stated as uncontrolled- Primary documented in this encounter Care Teams Denitrator Relationship Specialty Start Date End Date Roxanne Wooten MD PCP - General Internal Medicine 01/20/12 04/17/21 Nora Michelle MD PCP - General Internal Medicine 04/18/21 06/10/21 [facility], Pcp PCP - General Internal Medicine 06/11/21 02/22/23 Vijaya Tran MD [address] [place] [address] PCP - General Internal Medicine 02/23/23 11/05/23 Harish Murrell [address] [place] [address] PCP - General Internal Medicine 11/06/23 documented as of this encounter
--- OUTSIDE RECORDS SUMMARY | 2025-08-16 23:53 | XMS_ITS | Encounter Summary ---
Author Organization Sophie [facility] Prior to 07/08/2024 Address [address] [place] [address] Care Team Providers Care All Purpose Clerk Name Role Phone Roxanne Wooten MD Primary Care Provider Unava ilNora Rodríguez MD Primary Care Provider Unavailab bennett [facility] Primary Care Provider UnavailVijaya Walsh MD Primary Care Provider [phone] Harish Murrell Primary Care Provider Kelly bennett Encounter Details Date Type Department Care Team Description 05/24/2014 Release of Information Medical Records [address] [place] [address] Abstract, Provider Social History Tobacco Use Types [...] on filedocumented in this encounter Care Teams All Purpose Clerk Relationship Specialty Start Date End Date Roxanne Wooten MD PCP - General Internal Medicine 01/20/12 04/17/21 Nora Michelle MD PCP - General Internal Medicine 04/18/21 06/10/21 [facility] PCP - General Internal Medicine 06/11/21 02/22/23 Vijaya Tran MD [address] [place] [address] PCP - General Internal Medicine 02/23/23 11/05/23 Harish Murrell [address] [place] [address] PCP - General Internal Medicine 11/06/23 documented as of this encounter
--- OUTSIDE RECORDS SUMMARY | 2025-08-16 23:53 | XMS_ITS | Encounter Summary ---
Author Organization Sophie [facility] Prior to 07/08/2024 Address [address] [place] [address] Care Team Providers Care Document Examiner Name Role Phone Roxanne Wooten MD Primary Care Provider Unava Nora Rolon MD Primary Care Provider Unavailab [facility] Primary Care Provider UnavailVijaya Walsh MD Primary Care Provider [phone] Harish Murrell [facility] Encounter Details Date Type Department Care Team Description 03/07/2014 Pt. Non Urgent Medic al Question Adult Medicine [address] [address] Roxanne Wooten MD Social History Tobacco Use [...] as of this encounter Progress Notes * Katrina Romero M.A. - 03/07/2014 3:26 PM EDTFrom: Miracle Joseph To: Roxanne Wooten MD Sent: 03/07/2014 8:42 AM EDT Subject: urine re-test Finished taking the antibiotic Fluconazole for yeast in urine Saturday 03/03. Do I need to go for a urine re-test ? Also, the 02/23 urine re-test they did had no yeast results listed at all, did they not specificallycheck for yeast ? Which is why I was taking the antibiotic. I'd like to know if the issue is gone. FYI : I felt great on the fluconazole, some of my other yeast symptoms were clearing up, but felt like I could use a little longer on it. Thanks ! documented in this encounter Plan of Treatment Not on file documented as of this encounter Visit Diagnoses Not on filedocumented in this encounter Care Teams Document Examiner Relationship Specialty Start Date End Date Roxanne Wooten MD PCP - General Internal Medicine 01/20/12 04/17/21 Nora Michelle MD PCP - General Internal Medicine 04/18/21 06/10/21 [facility], Pcp PCP - General Internal Medicine 06/11/21 02/22/23 Vijaya Tran MD [address] [place] [address] PCP - General Internal Medicine 02/23/23 11/05/23 Harish Murrell [address] [place] [address] PCP - General Internal Medicine 11/06/23 documented as of this encounter
--- OUTSIDE RECORDS SUMMARY | 2025-08-16 23:53 | XMS_ITS | Encounter Summary ---
Author Organization Sophie [employer] [facility] Prior to 07/08/2024 Address [address] [place] [address] Care Team Providers Care Medical Oncology Physician Name Role Phone Roxanne Wooten MD Primary Care Provider Unava ilNora Rodríguez MD Primary Care Provider Unavailab donald [facility] Primary Care Provider UnavailVijaya Walsh MD Primary Care Provider [phone] Harish Murrell Primary Care Provider Unavailab bennett Encounter Details Date Type Department Care Team Description 09/18/2014 Mid Level Project Manager Report Medical Records [address] [place] [address] Emeli Roy MD Social History Tobacco Use [...] on filedocumented in this encounter Care Teams Medical Oncology Physician Relationship Specialty Start Date End Date Roxanne Wooten MD PCP - General Internal Medicine 01/20/12 04/17/21 Nora Michelle MD PCP - General Internal Medicine 04/18/21 06/10/21 [facility] PCP - General Internal Medicine 06/11/21 02/22/23 Vijaya Tran MD [address] [place] [address] PCP - General Internal Medicine 02/23/23 11/05/23 Harish Murrell [address] [place] [address] PCP - General Internal Medicine 11/06/23 documented as of this encounter
--- OUTSIDE RECORDS SUMMARY | 2025-08-16 23:53 | XMS_ITS | Encounter Summary ---
Author Organization Sophie [employer] [facility] [facility] Prior to 07/08/2024 Address [address] [place] [address] Care Team Providers Care Correctional Captain Name Role Phone Roxanne Wooten MD Primary Care Provider Unava ilNora Rodríguez MD Primary Care Provider Unavailab le [facility], Pcp Primary Care Provider Unavailabl Vijaya Maldonado MD Primary Care Provider [phone] Harish Murrell Primary Care Provider Unavailab le Reason for Visit * Reason Onset Date Comments Provider Call Back 05/11/2014 Encounter Details Date Type Department Care Team Description 05/11/2014 Telephone Urology [address] [place] [address] Jt Tim MD Provider Call Back Social [...] condition she has. Patient can be reached [phone]. documented in this encounter Plan of Treatment Not on file documented as of this encounter Visit Diagnoses Not on filedocumented in this encounter Care Teams Correctional Captain Relationship Specialty Start Date End Date Roxanne Wooten MD PCP - General Internal Medicine 01/20/12 04/17/21 Nora Michelle MD PCP - General Internal Medicine 04/18/21 06/10/21 [facility] PCP - General Internal Medicine 06/11/21 02/22/23 Vijaya Tran MD [address] [place] [address] PCP - General Internal Medicine 02/23/23 11/05/23 Harish Murrell [address] [place] [address] PCP - General Internal Medicine 11/06/23 documented as of this encounter
--- OUTSIDE RECORDS SUMMARY | 2025-08-16 23:53 | XMS_ITS | Encounter Summary ---
Author Organization Sophie [facility] Prior to 07/08/2024 Address [address] [place] [address] Care Team Providers Care Land Planner Name Role Phone Roxanne Wooten MD Primary Care Provider Unava ilNora Rodríguez MD Primary Care Provider Unavailab donald [facility] Primary Care Provider UnavailVijaya Walsh MD Primary Care Provider [phone] Harish Murrell Primary Care Provider Unavailab bennett Encounter Details Date Type Department Care Team Description 01/10/2016 Dock Associate Report Medical Records [address] [place] [address] [place] Social History Tobacco Use Types [...] on filedocumented in this encounter Care Teams Land Planner Relationship Specialty Start Date End Date Roxanne Wooten MD PCP - General Internal Medicine 01/20/12 04/17/21 Nora Michelle MD PCP - General Internal Medicine 04/18/21 06/10/21 [facility] PCP - General Internal Medicine 06/11/21 02/22/23 Vijaya Tran MD [address] [place] [address] PCP - General Internal Medicine 02/23/23 11/05/23 Harish Murrell [address] [place] [address] PCP - General Internal Medicine 11/06/23 documented as of this encounter
--- OUTSIDE RECORDS SUMMARY | 2025-08-16 23:53 | XMS_ITS | Encounter Summary ---
Author Organization Sophie [facility] Prior to 07/08/2024 Address [address] [place] [address] Care Team Providers Care Skidder Name Role Phone Roxanne Wooten MD Primary Care Provider Agustinava Nora Rolon MD Primary Care Provider Unavailab [facility] Pcp Primary Care Provider UnavailVijaya Walsh MD Primary Care Provider [phone] Harish Murrell Primary Care Provider Unavailab Encounter Details Date Type Department Care Team Description 05/25/2018 Orders Only Adult Medicine [address] [address] Sylvia Callejas PA-C [address] [place] [address] Special screening for malignant neoplasms, colon Social [...] colon documented in this encounter Care Teams Skidder Relationship Specialty Start Date End Date Roxanne Wooten MD PCP - General Internal Medicine 01/20/12 04/17/21 Nora Michelle MD PCP - General Internal Medicine 04/18/21 06/10/21 [facility] PCP - General Internal Medicine 06/11/21 02/22/23 Vijaya Tran MD [address] [place] [address] PCP - General Internal Medicine 02/23/23 11/05/23 Harish Murrell [address] [place] [address] PCP - General Internal Medicine 11/06/23 documented as of this encounter
--- OUTSIDE RECORDS SUMMARY | 2025-08-16 23:53 | XMS_ITS | Encounter Summary ---
Author Organization Sophie [employer] [facility] Prior to 07/08/2024 Address [address] [place] [address] Care Team Providers Care Programming Coordinator Name Role Phone Roxanne Wooten MD Primary Care Provider Unava ilNora Rodríguez MD Primary Care Provider Unavailab donald [facility] Primary Care Provider UnavailVijaya Walsh MD Primary Care Provider [phone] Harish Murrell Primary Care Provider Unavailab bennett Encounter Details Date Type Department Care Team Description 04/23/2016 [facility] Medical Records [address] [place] [address] Corby Uriarte MD Social History Tobacco Use [...] on filedocumented in this encounter Care Teams Programming Coordinator Relationship Specialty Start Date End Date Roxanne Wooten MD PCP - General Internal Medicine 01/20/12 04/17/21 Nora Michelle MD PCP - General Internal Medicine 04/18/21 06/10/21 [facility] PCP - General Internal Medicine 06/11/21 02/22/23 Vijaya Tran MD [address] [place] [address] PCP - General Internal Medicine 02/23/23 11/05/23 Harish Murrell [address] [place] [address] PCP - General Internal Medicine 11/06/23 documented as of this encounter
--- OUTSIDE RECORDS SUMMARY | 2025-08-16 23:53 | XMS_ITS | Encounter Summary ---
Author Organization Sophie [facility] Prior to 07/08/2024 Address [address] [place] [address] Care Team Providers Care Palletizer Operator Name Role Phone Roxanne Wooten MD Primary Care Provider Nora Peres MD Primary Care Provider Unavailab [facility] Primary Care Provider Vijaya Mo MD Primary Care Provider [phone] Harish Murrell Primary Care Provider Unavail Encounter Details Date Type Department Care Team Description 09/01/2014 [facility] Medical Records [address] [place] [address] Abstract, Provider Social History Tobacco Use Types [...] Name Priority Date/Time Associated Diagnosis Comments OUTSIDE PLAIN FILM Routine 07/13/2014 documented in this encounter Results * OUTSIDE PLAIN FILM (07/13/2014) Provider Abstract RADIOLOGY documented in this encounter Visit Diagnoses Not on filedocumented in this encounter Care Teams Palletizer Operator Relationship Specialty Start Date End Date Roxanne Wooten MD PCP - General Internal Medicine 01/20/12 04/17/21 Nora Michelle MD PCP - General Internal Medicine 04/18/21 06/10/21 [facility], Pcp PCP - General Internal Medicine 06/11/21 02/22/23 Vijaya Tran MD [address] [place] [address] PCP - General Internal Medicine 02/23/23 11/05/23 Harish Murrell [address] [place] [address] PCP - General Internal Medicine 11/06/23 documented as of this encounter
--- OUTSIDE RECORDS SUMMARY | 2025-08-16 23:53 | XMS_ITS | Encounter Summary ---
Author Organization Sophie [employer] [facility] Prior to 07/08/2024 Address [address] [place] [address] Care Team Providers Care Electrotype Molder Name Role Phone Sharon Olmedo MD Primary Care Provider [phone] Raúl Schulte MD Primary Care Provider Roxanne Soto MD Primary Care Provider Nora Peres MD Primary Care [facility] Primary Care Provider UnavailVijaya Walsh MD Primary Care Provider [phone] Harish Murrell Primary Care Provider [facility] Encounter Details Date Type Department Care Team Description 12/02/2010 [facility] Medical Records [address] [place] [id number] Abstract, Provider Social History Tobacco Use Types [...] on filedocumented in this encounter Care Teams Electrotype Molder Relationship Specialty Start Date End Date Sharon Olmedo MD [address] [place] [address] [id number] PCP - General 10/10/10 10/14/11 Raúl Schulte MD [address] [place] [address] PCP - General Internal Medicine 10/15/11 01/19/12 Roxanne Wooten MD [address] [place] [address] PCP - General Internal Medicine 01/20/12 04/17/21 Nora Michelle MD [address] [place], [place] [phone] PCP - General Internal Medicine 04/18/21 06/10/21 [facility], Pcp [address] [place] [address] PCP - General Internal Medicine 06/11/21 02/22/23 Vijaya Tran MD [address] [place], [place] [phone] PCP - General Internal Medicine 02/23/23 11/05/23 Harish Murrell [address] [place], [place] [phone] PCP - General Internal Medicine 11/06/23 documented as of this encounter
--- OUTSIDE RECORDS SUMMARY | 2025-08-16 23:53 | XMS_ITS | Encounter Summary ---
Author Organization Sophie [employer] [facility] Prior to 07/08/2024 Address [address] [place] [address] Care Team Providers Care Alumina Plant Supervisor Name Role Phone Roxanne Wooten MD Primary Care Provider Unava ilNora Rodríguez MD Primary Care Provider Unavailab donald [facility] Primary Care Provider UnavailVijaya Walsh MD Primary Care Provider [phone] Harish Murrell Primary Care Provider Unavailab bennett Encounter Details Date Type Department Care Team Description 02/15/2016 Commercial Drone Pilot Report Medical Records [address] [place] [address] Corby Uriarte MD Social History Tobacco Use [...] on filedocumented in this encounter Care Teams Alumina Plant Supervisor Relationship Specialty Start Date End Date Roxanne Wooten MD PCP - General Internal Medicine 01/20/12 04/17/21 Nora Michelle MD PCP - General Internal Medicine 04/18/21 06/10/21 [facility] PCP - General Internal Medicine 06/11/21 02/22/23 Vijaya Tran MD [address] [place] [address] PCP - General Internal Medicine 02/23/23 11/05/23 Harish Murrell [address] [place] [address] PCP - General Internal Medicine 11/06/23 documented as of this encounter
--- OUTSIDE RECORDS SUMMARY | 2025-08-16 23:53 | XMS_ITS | Encounter Summary ---
Author Organization Sophie [facility] [facility] Prior to 07/08/2024 Address [address] [place] [address] Care Team Providers Care Skating Rink Ice Maker Name Role Phone Roxanne Wooten MD Primary Care Provider Unava ilNora Rodríguez MD Primary Care Provider Unavailab le [facility], Pcp Primary Care Provider Unavailabl Vijaya Maldonado MD Primary Care Provider [phone] Harish Murrell Primary Care Provider Unavailab le Reason for Visit * Reason Onset Date Comments Quality Outreach--Diabetes 12/01/2013 Encounter Details Date Type Department Care Team Description 12/01/2013 Telephone Adult [address] [address] Roxanne Wooten MD Quality Outreach--Diabetes Social History [...] a message to call me back at [phone]. PLAN Pt does not have a DM partnership: Await call back Or Retry in two weeks documented in this encounter Plan of Treatment Not on file documented as of this encounter Visit Diagnoses Not on filedocumented in this encounter Care Teams Skating Rink Ice Maker Relationship Specialty Start Date End Date Roxanne Wooten MD PCP - General Internal Medicine 01/20/12 04/17/21 Nora Michelle MD PCP - General Internal Medicine 04/18/21 06/10/21 [facility] PCP - General Internal Medicine 06/11/21 02/22/23 Vijaya Tran MD [address] [place] [address] PCP - General Internal Medicine 02/23/23 11/05/23 Harish Murrell [address] [place] [address] PCP - General Internal Medicine 11/06/23 documented as of this encounter
--- OUTSIDE RECORDS SUMMARY | 2025-08-16 23:53 | XMS_ITS | Encounter Summary ---
Author Organization Sophie [facility] [facility] Prior to 07/08/2024 Address [address] [place] [address] Care Team Providers Care Photo Printer Name Role Phone Roxanne Wooten MD Primary Care Provider Unava ilNora Rodríguez MD Primary Care Provider Unavailab donald [facility] Pcp Primary Care Provider UnavailVijaya Walsh MD Primary Care Provider [phone] Harish Murrell Primary Care Provider Unavailab bennett Encounter Details Date Type Department Care Team Description 08/22/2015 [facility] Medical Records [address] [place] [address] Social History Tobacco Use Types Packs/Day Years [...] on filedocumented in this encounter Care Teams Photo Printer Relationship Specialty Start Date End Date Roxanne Wooten MD PCP - General Internal Medicine 01/20/12 04/17/21 Nora Michelle MD PCP - General Internal Medicine 04/18/21 06/10/21 [facility], Pcp PCP - General Internal Medicine 06/11/21 02/22/23 Vijaya Tran MD [address] [place] [address] PCP - General Internal Medicine 02/23/23 11/05/23 Harish Murrell [address] [place] [address] PCP - General Internal Medicine 11/06/23 documented as of this encounter
== END 2025-08-16 15:21 ==
LOC: HO.US 15:20
PROVIDERS: PCP Physician Assistant; Visit Provider Physician Assistant
DX: R07.89 Other chest pain (principal); R22.1 Localized swelling, mass and lump, neck; M25.641 Stiffness of right hand, not elsewhere classified; M25.642 Stiffness of left hand, not elsewhere classified
CPT/HCPCS: 71130; 73120; 76536

== ENCOUNTER → 2025-08-16 15:24 | Outpatient (BNV) | payer OTHER, SELFPAY | PROVIDERS: PCP Physician Assistant; Visit Provider Radiology Diagnostic Radiology | DX: R22.1 Localized swelling, mass and lump, neck (principal); M25.711 Osteophyte, right shoulder; M19.042 Primary osteoarthritis, left hand; M19.041 Primary osteoarthritis, right hand | CPT/HCPCS: 71130; 73120; 76536 ==

== ENCOUNTER 2025-09-05 15:10 | Outpatient (AMB) | payer OTHER, SELFPAY ==
--- NOTE | 2025-09-05 15:16 | A.OFFPC_ITS ---
Vital Signs 09/05/25 15:18 Height 5 ft 1 in Weight 178 lb BMI 33.6 BP 130/62 Blood Pressure Location Lt brachial Position Sitting Pulse 47 L Pulse Source Pulse Oximeter Temp 96.6 F L Temp Source Temporal Artery Scan Pulse Oximetry (%) 98 Oxygen Delivery Method Room Air Intake Visit Reasons: Annual Exam Intake Note: Patient is here today for a physical. Bowling Teacher Required: No Customer Service Representative: Not Required per policy Accompanied by: Self / Same As Patient Allergies amoxicillin (From Augmentin) Adverse Reaction (Intermediate, Verified 09/05/25 15:43) Rash clavulanic acid (From Augmentin) Adverse Reaction (Intermediate, Verified 09/05/25 15:43) Rash Medication List - Last Reconciled 09/05/25 by Harish Murrell PA-C atorvastatin 40 mg PO DAILY 90 days blood pressure monitor Testing once a day as needed lisinopril 10 mg PO DAILY 90 days metformin ER 1,000 mg (2 x 500 mg) PO BID 90 days metoprolol succinate ER 75 mg (1.5 x 50 mg) PO DAILY 90 days multivitamin 1 tab PO DAILY warfarin 5 mg PO DAILY 90 days warfarin 2.5 mg PO DAILY 90 days Tobacco use date assessed: 09/05/25 Dental Screening Dental Screen Date: 06/07/25 HPI Annual Exam HPI Details Patient is a 64 year old? female here today for a routine annual physical.. Patient has a past medical history significant for type 2 diabetes obesity,? AVR ( on anticoagulation) hyperlipidemia, paroxysmal AFIB Neck nodule--> most recent ultrasound neck did show a 3 cm neck nodule, recommendations for CT scan to better define these nodules though patient would like to hold off on this as her neck pain and discomfort has gone away. Hand osteoarthritis: Most recent x-rays of hands did show mild osteoarthritis, she does report getting hand pain and stiffness worse in the mornings. We did discuss perhaps going to occupational therapy for treatment though she will hold off on this. She plans on retiring in October of 2025 which may help hand pain. .. AVR: Is on Anticoagulation now followed by [facility]. Has been set up with home meter for her INR. IS followed by warfarin clinic ( [facility]).? Denies any overt signs of bleeding. She does have an extensive cardiac family history as she has a mother and a sister both with valve replacements.? She has a brother and father whom had coronary artery disease needing coronary artery bypass. Has upcoming ECHO- 2025.. She has no signs of overt heart failure. .. DMI most recent A1c is 6.2, continues on metformin.. Does check her Bood sugars at home Reports sugars 140 -190s.? She has been making dietary modifications. most recent a1c - 6.0 . Hypertension:? Patient's blood pressure acceptable today in office.. We have started lisinopril 10 mg and she has been more consistent with the use of lisinopril and blood pressures seem to be better. Will continue current doses of antihypertensive medication and will consider increasing lisinopril to 20 mg Colorectal cancer screening:? Recently had Dora was positive and is willing to speak with sales management trainee about colonoscopy.? She has been bridged with Lovenox in the past due to her mechanical aortic valve replacement.? She reports she usually has large amount of ecchymosis on her abdomen due to the anticoagulation. Still considering colonoscopy. Vaccines: Up-to-date with COVID vaccine, pneumonia vaccine tetanus vaccine,UTD flu vaccine, considering singrex . Council On Aging Director: Has not seen a CULTURE MEDIA LABORATORY ASSISTANT-will call [facility] credit assessment analyst for Pap . mammo: Most recent mammogram done in June of 2024 BI-RADS 1- Needs up-to-date mammogram- usually goes [facility] for [facility] mammograms and will call to schedule appointment [facility] Medical History Family history of coronary arteriosclerosis Nephrolithiasis Basal cell carcinoma (BCC) in situ of skin Surgical History S/P AVR (aortic valve replacement) H/O lithotripsy H/O aortic valve replacement (~08/2015) Family History Father CAD (coronary artery disease) Mother Aortic valvular disorder Brother CAD (coronary artery disease) Aortic valvular disorder Sister Breast cancer CAD (coronary artery disease) Social History Housing: House Alcohol intake: never Patient Tobacco Use Status: Never used Tobacco e-Cigarette/Vaping Use: Never Used Second Hand Smoke Exposure: No service: No Current occupational status: employed Current occupation: acCOUNTING [employer] Cognitive needs: No Hearing needs: No Vision needs: No Questionnaire Thrive Questionnaire Date Thrive assessed: 02/20/25 I am a: Patient What is your living situation today?: I have a steady place to live Within the past 12 months, did the food you bought not last and you didn't have the money to get more?: Never true Within the past 12 months, did you worry whether your food would run out before you got money to buy more?: Never true Do you have trouble paying for medicines?: No Do you have trouble getting transportation to medical appointments?: No Do you have trouble paying your heating and electricity bill?: No Do you have trouble taking care of your child, family member or friend?: I choose not to answer this question Do you have trouble with day-to-day activities such as bathing, preparing meals, shopping, managing finances, etc.?: No Are you currently unemployed and looking for a job?: No Are you interested in more education?: No Currently or been in a relationship where the following occur: No concerns reported THRIVE Score: 0 GLENN-7 AMB Questionnaire GLENN-7 Date GLENN - 7 assessed: 02/27/25 Source: Developed by Drs. Richard Rowe, Britt Silver, Jensen Bucio and colleagues, with an educational joaquina from [employer]. Review of Systems Const Denies body aches, Denies chills, Denies excessive sweating, Denies fatigue, Denies fever(s) and Denies headache(s) Eyes Denies blurry vision ENT Denies dysphagia, Denies vertigo, Denies dizziness, Denies headache(s), Denies hearing loss and Denies tinnitus Card Denies chest pain, Denies chest pain with activity, Denies syncope, Denies irregular heart rhythm and Denies dyspnea Resp Denies chest congestion, Denies cough, Denies hemoptysis, Denies dyspnea and Denies wheezing GI Denies abdominal pain, Denies melena, Denies hematochezia, Denies coffee ground emesis, Denies dysphagia, Denies diarrhea, Denies nausea and Denies vomiting Denies urinary frequency, Denies dysuria, Denies urinary hesitancy and Denies urinary urgency Musc Denies arthralgias, Denies limited range of motion, Denies muscle cramps and Denies muscle weakness Skin/Breast Denies rash and Denies skin ulcer Neuro Denies Abnormal speech present, Denies confusion, Denies vertigo, Denies dizziness, Denies syncope, Denies headache(s), Denies memory loss and Denies seizure-like activity Psych Denies anxiety, Denies confusion, Denies depression, Denies memory loss, Denies panic attacks and Denies paranoia Endo Denies excessive sweating, Denies fatigue, Denies flushing, Denies polydipsia and Denies polyuria Aller/Immun Denies wheezing Physical exam (Primary Care) Vital Signs: Last Vital Signs Temp 96.6 F L 09/05/25 15:18 Pulse 47 L 09/05/25 15:18 BP 130/62 09/05/25 15:18 Pulse Ox 98 09/05/25 15:18 Oxygen Delivery Method Room Air 09/05/25 15:18 BMI result Body Mass Index 33.6 BMI Assessment/Plan discussion: High BMI High, discussed plan: lifestyle, weight reduction, dietary and physical activity Tobacco/Smoking Status: Tobacco use Status Tobacco use date assessed 09/05/25 09/05/25 15:25 Patient Tobacco Use Status Never used Tobacco 09/05/25 15:25 e-Cigarette/Vaping Use Never Used 09/05/25 15:25 Thrive Assessment: Date of Thrive Assessment Date Thrive assessed 02/20/25 09/05/25 15:25 Currently or been in a relationship where the following occur: No concerns reported Const Other: Obese General: cooperative, comfortable, no acute distress, alert and awake; No confusion Orientation/consciousness: oriented to person, oriented to place, patient oriented x3 and No confusion HENMT Head: Yes normocephalic Ears: external ears normal and TM's normal bilaterally Face and sinus: No sinus tenderness Mouth: Normal oral and palatal mucosa present and tongue normal Teeth and gingiva: dentition normal and gingiva normal Throat: Yes posterior oropharynx normal, Yes tonsils normal and Yes uvula midline Eyes Conjunctivae: conjunctivae normal Sclerae: sclerae normal Pupils: Equal, round and reactive pupils present EOM: EOMs intact bilaterally Direct Ophthalmoscopy: No no photophobia Neck Neck: Yes no lymphadenopathy, No tender and Yes no JVD Thyroid: Thyroid normal Carotids: no bruits Chest Chest palpation & inspection: no tenderness Resp Effort & Inspection: normal respiratory effort, no audible wheezes, not labored and no stridor Auscultation: no crackles, no rales, no rhonchi and no wheezes Cardio Jugular venous distension: no JVD Rate: regular rate, not bradycardic and not tachycardic Rhythm: regular rhythm Bruits: no carotid bruits Peripheral pulses: Peripheral pulses 2+ throughout GI Inspection: Yes normal to inspection, No abdominal wall ecchymosis and No visible herniation Palpation (GI): Soft to palpation, nontender, no guarding, not rigid and No hepatosplenomegaly present Auscultation: normoactive bowel sounds General: Yes no CVA tenderness Back/Spine/Pelvis Back: no CVA tenderness and No back tenderness Cervical Spine: cervical ROM normal Thoracic/Lumbar Spine: thoracic and lumbar spine normal to inspection, straight leg raise negative bilaterally, No thoraco-lumbar ROM limited and No lumbar spinal tenderness Skin Lesions: no lesions Rashes: no rashes Wounds: no wounds Neuro General: oriented to person, oriented to place, patient oriented x3, CN's II-XI intact bilaterally and No confusion Cranial nerves: Yes Equal, round and reactive pupils present and Yes Normal accommodation reflex present Cognition (Neuro): normal cognition Speech: No Abnormal speech present Gait exam (Neuro): Normal gait present Motor exam (neuro): 5/5 motor strength present throughout Extrem Right upper extremity: full ROM; no cyanosis Left upper extremity: full ROM; no cyanosis Right lower extremity: no edema Left lower extremity: no edema Psych Appearance: grossly normal Mental Status: mental status grossly normal Affect: normal affect Attitude: cooperative Thought process: Normal thought process present Coding Level of Care Code Est Pt Prev Care 40-64y([id number]) Diagnoses Annual physical exam Z00.00 Essential hypertension I10 Type 2 diabetes mellitus with hyperglycemia, without long-term current use of insulin E11.65 Diabetes mellitus alf insulin use: without computer terminal operator use Diabetes mellitus complication status: with hyperglycemia PAF (paroxysmal atrial fibrillation) I48.0 Status post mechanical aortic valve replacement Z95.2 Class 1 obesity E66.811 Nodule of neck R22.1 Assessment & Plan Assessment & Plan (1) Annual physical exam: Code(s): Z00.00 - Encounter for general adult medical examination without abnormal findings Category: Medical Plan: as per HPI (2) Essential hypertension: Code(s): I10 - Essential (primary) hypertension Category: Medical Plan: Patient's blood pressure has improved with the additional lisinopril. Will continue to monitor blood pressure at home. Will consider increasing lisinopril to 20 mg. Goal blood pressure to be below 140/90 (3) DMII (diabetes mellitus, type 2): Code(s): E11.9 - Type 2 diabetes mellitus without complications Category: Medical Qualifiers: Diabetes mellitus computer terminal operator insulin use: without computer terminal operator use Diabetes mellitus complication status: with hyperglycemia Qualified Code(s): E11.65 - Type 2 diabetes mellitus with hyperglycemia Plan: Patient's type 2 diabetes well controlled with current dose of metformin. Recent A1c 6. 2. Goal A1c is to remain below 7.0 (4) PAF (paroxysmal atrial fibrillation): Code(s): I48.0 - Paroxysmal atrial fibrillation Category: Medical Plan: Patient continues to be anticoagulated with warfarin and rate control with metoprolol. Otherwise denies any recent dizziness or help palpitations. (5) Status post mechanical aortic valve replacement: Code(s): Z95.2 - Presence of prosthetic heart valve Category: Surgical Plan: Patient is status post mechanical aortic valve. She is followed by Cardiology here at [place], gets echocardiogram annually and has upcoming appointment for echocardiogram in September of 2025 She has no overt signs of Congestive heart failure. She continues on warfarin and gets her INRs checked that a [facility] facility. (6) Class 1 obesity: Code(s): E66.811 - Obesity, class 1 Category: Medical Plan: Patient does understand her BMI is over 30 will continue working on being more physically active and adapting to better eating habits to reduce her weight. (7) Nodule of neck: Code(s): R22.1 - Localized swelling, mass and lump, neck Category: Medical Plan: Has a history of a large goiter and had a left jorge thyroidectomy in the past. Recent ultrasound of neck did show a 3 cm neck nodule. Recommendations were for a CT of neck to better define these nodules though patient would like to hold off on this for now as she is not having anymore pain.
[2025-09-05 15:18] VITALS: BP 130/62; PULSE 47; TEMP 35.9; O2SAT 98; BMI 33.6
--- OUTSIDE RECORDS SUMMARY | 2025-09-05 18:38 | XMS_ITS | Encounter Summary ---
Author Organization [facility] Prior to 07/08/2024 Address [address] [place] [address] Care Team Providers Care Home Visitor Home Base Head Start Name Role Phone Roxanne Wooten MD Primary Care Provider Unava Nora Rolon MD Primary Care Provider Unavailab [facility] Primary Care Provider UnavailVijaya Walsh MD Primary Care Provider [phone] Harish Murrell Primary Care [facility] Encounter Details Date Type Department Care Team Description 01/19/2021 Refill Adult Medicine [address] [address] Roxnane Wooten MD Social History Tobacco Use Types [...] Telephone Encounter - Katrina Romero M.A. - 01/21/2021 8:33 AM EDT SAW 01/02/2021 telehealth (return in 3 mths) No F/U appt Lab Results Component Value Date HGBA1C 7.7 12/23/2020 MALBUR 280.0 09/05/2020 MALBCR 187.9 09/05/2020 CHOL 182 09/05/2020 LDL 88 09/05/2020 HDL 48 09/05/2020 TRIG 232 09/05/2020 GLU 124 12/23/2020 CREAT 0.61 12/23/2020 documented in this encounter Plan of Treatment Not on file documented as of this encounter Visit Diagnoses Not on filedocumented in this encounter Care Teams Home Visitor Home Base Head Start Relationship Specialty Start Date End Date Roxanne Wooten MD PCP - General Internal Medicine 01/20/12 04/17/21 Nora Michelle MD PCP - General Internal Medicine 04/18/21 06/10/21 [facility] PCP - General Internal Medicine 06/11/21 02/22/23 Vijaya Tran MD [address] [place] [address] PCP - General Internal Medicine 02/23/23 11/05/23 Harish Murrell [address] [place] [id number] PCP - General Internal Medicine 11/06/23 documented as of this encounter
--- OUTSIDE RECORDS SUMMARY | 2025-09-05 18:38 | XMS_ITS | Encounter Summary ---
Author Organization [facility] Prior to 07/08/2024 Address [address] [place] [address] Care Team Providers Care Hunting Sales Leader Name Role Phone Roxanne Wooten MD Primary Care Provider Unava ilNora Rodríguez MD Primary Care Provider Unavailab donald [facility], [facility] Primary Care Provider UnavailVijaya Walsh MD Primary Care Provider [phone] Harish Murrell Primary Care Provider Unavailab bennett Encounter Details Date Type Department Care Team Description 01/12/2017 Wire Temperer Report Medical Records [address] [place] [id number] Emeli Roy MD Social History Tobacco Use [...] on filedocumented in this encounter Care Teams Hunting Sales Leader Relationship Specialty Start Date End Date Roxanne Wooten MD PCP - General Internal Medicine 01/20/12 04/17/21 Nora Michelle MD PCP - General Internal Medicine 04/18/21 06/10/21 [facility], [facility] PCP - General Internal Medicine 06/11/21 02/22/23 Vijaya Tran MD [address] [place] [address] PCP - General Internal Medicine 02/23/23 11/05/23 Harish Murrell [address] [place] [id number] PCP - General Internal Medicine 11/06/23 documented as of this encounter
--- OUTSIDE RECORDS SUMMARY | 2025-09-05 18:38 | XMS_ITS | Encounter Summary ---
Author Organization [facility] Prior to 07/08/2024 Address [address] [place] [address] Care Team Providers Care Administrative Sales Assistant Name Role Phone Roxanne Wooetn MD Primary Care Provider Agustinava Nora Rolon MD Primary Care Provider Unavailab [facility] Primary Care Provider UnavailVijaya Walsh MD Primary Care Provider [phone] Harish Murrell Primary Care Provider Unavail Encounter Details Date Type Department Care Team Description 07/30/2015 Pt. Non Urgent Medic al [facility] [address] [place] [address] Jt Jerry PA-C Social History Tobacco Use [...] on filedocumented in this encounter Care Teams Administrative Sales Assistant Relationship Specialty Start Date End Date Roxanne Wooten MD PCP - General Internal Medicine 01/20/12 04/17/21 Nora Michelle MD PCP - General Internal Medicine 04/18/21 06/10/21 [facility] PCP - General Internal Medicine 06/11/21 02/22/23 Vijaya Tran MD [address] [place] [address] PCP - General Internal Medicine 02/23/23 11/05/23 Harish Murrell [address] [place] [id number] PCP - General Internal Medicine 11/06/23 documented as of this encounter
--- OUTSIDE RECORDS SUMMARY | 2025-09-05 18:38 | XMS_ITS | Encounter Summary ---
Author Organization [facility] Prior to 07/08/2024 Address [address] [place] [address] Care Team Providers Care Centerpuncher Name Role Phone Roxanne Wooten MD Primary Care Provider Nora Peres MD Primary Care Provider Unavailab [facility] Primary Care Provider Vijaya Mo MD Primary Care Provider [phone] Harish Murrell Primary Care Provider Unavail Encounter Details Date Type Department Care Team Description 12/13/2018 Orders Only Medical Records [address] [place] [id number] Abstract, Provider Social History Tobacco Use Types [...] on filedocumented in this encounter Care Teams Centerpuncher Relationship Specialty Start Date End Date Roxanne Wooten MD PCP - General Internal Medicine 01/20/12 04/17/21 Nora Michelle MD PCP - General Internal Medicine 04/18/21 06/10/21 [facility] Pcp PCP - General Internal Medicine 06/11/21 02/22/23 Vijaya Tran MD [address] [place] [phone] PCP - General Internal Medicine 02/23/23 11/05/23 Harish Murrell [address] [place] [address] PCP - General Internal Medicine 11/06/23 documented as of this encounter
--- OUTSIDE RECORDS SUMMARY | 2025-09-05 18:38 | XMS_ITS | Encounter Summary ---
Author Organization [facility] Prior to 07/08/2024 Address [address] [place] [address] Care Team Providers Care Family Service Aide Name Role Phone Roxanne Wooten MD Primary Care Provider Unava Nora Rolon MD Primary Care Provider Unavailab [facility] Primary Care Provider UnavailVijaya Walsh MD Primary Care Provider [phone] Harish Murrell Primary Care Provider Unavail Encounter Details Date Type Department Care Team Description 07/21/2018 Refill Adult Medicine [address] [address] Roxanne Wooten MD Social History Tobacco Use [...] MG tablet [Roxanne Wooten MD] Preferred pharmacy: [address] Comment: Would like quantity of 90 pills so I don???t have to go to pharmacy as often please and thanks. documented in this encounter Plan of Treatment Not on file documented as of this encounter Visit Diagnoses Not on filedocumented in this encounter Care Teams Family Service Aide Relationship Specialty Start Date End Date Roxanne Wooten MD PCP - General Internal Medicine 01/20/12 04/17/21 Nora Michelle MD PCP - General Internal Medicine 04/18/21 06/10/21 [facility] [place] - [place] Internal Medicine 06/11/21 02/22/23 Vijaya Tran MD [address] [place] [address] PCP - General Internal Medicine 02/23/23 11/05/23 Harish Murrell [address] [place] [address] PCP - General Internal Medicine 11/06/23 documented as of this encounter
--- OUTSIDE RECORDS SUMMARY | 2025-09-05 18:38 | XMS_ITS | Encounter Summary ---
Author Organization [facility] Prior to 07/08/2024 Address [address] [place] [address] Care Team Providers Care Merchandise Clerk Name Role Phone Roxanne Wooten MD Primary Care Provider Unava ilNora Rodríguez MD Primary Care Provider Unavailab le [facility], Pcp Primary Care Provider Unavailabl Vijaya Maldonado MD Primary Care Provider [phone] Harish Murrell Primary Care Provider Unavailab le Reason for Visit * Reason Onset Date Comments Quality Outreach--Diabetes 08/18/2013 DM pa rtnership Encounter Details Date Type Department Care Team Description 08/18/2013 Telephone Adult [address] [address] Roxanne Wooten MD Quality Outreach--Diabetes (DM partnership) [...] DM outreach as continued option Cari Briceno PIE BOTTOMER Nurse Sponge Packer [facility] My hours are Mon-Fri 8:00am-4:30pm. * Telephone Encounter - Kacey Ravi CMA - 08/18/2013 12:39 PM EST Call transferred from [facility]. Spoke with pt she did not want [...] (ABNORMAL) LIPID PROFILE (10/29/2013 9:36 AM EST) [facility] Cholesterol 189 0 - 200 mg/dL 10/29/2013 11:48 AM EST [facility] TRIGLYCERIDES 170(H) 0 - 150 mg/dL 10/29/2013 11:44 AM [facility] HDL CHOLESTEROL 44 >40 mg/dL 4 11:48 AM [facility] LDL CALCULATED 111(H) 0 - 100 mg/dL 10/29/2013 11:48 AM [facility] TC-HDLC RATIO 4 0.0 - 4.4 mg/dL 10/29/2013 11:48 AM [facility] 10/29/2013 9:36 AM EST 10/29/2013 9:37 AM EST Roxanne Wooten MD LAB Performing Organization Address [facility] Co de Phone Number [address] * (ABNORMAL) MICROALBUMIN/CREATININE, URINE (10/29/2013 9:36 AM EST) CREAT,RANDOM URINE 125 mg/dL 10/29/2013 11:40 AM [facility] MICROALBUMIN, RANDOM 169.0(H) 0.0 - 29.0 mg/L 10/29/2013 11:40 AM [facility] MICROALB/CRE RATIO RANDOM 135(H) <30.0 mg/g 10/29/2013 11:40 AM [facility] 10/29/2013 9:36 AM EST 10/29/2013 9:37 AM EST Roxanne Wooten MD LAB Performing Organization Address [facility] Co de Phone Number [address] * (ABNORMAL) BASIC METABOLIC PANEL (10/29/2013 9:36 AM EST) GLUCOSE 126(H) 70 - 100 mg/dL 10/29/2013 11:47 AM [facility] Comment: Reference range applicable to fasting specimens only Based on recommendations from the ADA and AACE, the fasting glucose reference range has been changed to 70-100 mg/dL. This change is effective January 21, 2010 BUN 7 5 - 25 mg/dL 10/29/2013 11:[address] [facility] CREAT 0.4(L) 0.7 - 1.5 mg/dL 10/29/2013 11:[address] [facility] GFR > 60 >60 10/29/2013 12:14 PM [facility] Comment: If patient is -Luxembourger, multiply result by 1.21 Chronic Kidney Disease: < 60 ml/min/1.73 square meters Kidney Failure: < 15 ml/min/1.73 square meters Sodium 140 133 - 145 mEq/L 10/29/2013 11:12 AM [facility] Potassium 4.7 3.5 - 5.2 mEq/L 10/29/2013 11:[address] [facility] Chloride 102 96 - 108 mEq/L 10/29/2013 11:[address] [facility] CO2 27.4 21.0 - 32.0 mEq/L 10/29/2013 11:[address] [facility] CALCIUM 9.2 8.5 - 10.5 mg/dL 10/29/2013 11:42 AM [facility] 10/29/2013 9:36 AM EST 10/29/2013 9:37 AM EST Roxanne Wooten MD LAB Performing Organization Address [facility] Co de Phone Number [address] * (ABNORMAL) HEMOGLOBIN A1C (10/29/2013 9:36 AM EST) Glycosylated Hemoglobin A1C 7.6(H) 4.0 - 6.0 % 10/29/2013 10:47 AM [facility] Comment: HbA1C VALUES MAY NOT ACCURATELY REFLECT MEAN BLOOD GLUCOSE IN PATIENTS WITH HEMOGLOBIN VARIANTS SUCH HbF, HbS. 10/29/2013 9:36 AM EST 10/29/2013 9:37 AM EST Roxanne Wooten MD LAB Performing Organization Address [facility] Co de Phone Number [address] documented in this encounter Visit Diagnoses Diagnosis Diabetes mellitus type 2, uncontrolled, with renal manifestations- Primary Type II or unspecified type diabetes mellitus with renal manifestations, uncontrolled documented in this encounter Care Teams Merchandise Clerk Relationship Specialty Start Date End Date Roxanne Wooten MD PCP - General Internal Medicine 01/20/12 04/17/21 Nora Michelle MD PCP - General Internal Medicine 04/18/21 06/10/21 [facility] PCP - General Internal Medicine 06/11/21 02/22/23 Vijaya Tran MD [address] [place] [address] PCP - General Internal Medicine 02/23/23 11/05/23 Harish Murrell [address] [place] [address] PCP - General Internal Medicine 11/06/23 documented as of this encounter
--- OUTSIDE RECORDS SUMMARY | 2025-09-05 18:38 | XMS_ITS | Encounter Summary ---
Author Organization Sophie [facility] Prior to 07/08/2024 Address [address] [place] [address] Care Team Providers Care Hose Coupling Joiner Name Role Phone Roxanne Wooten MD Primary Care Provider Unava ilNora Rodríguez MD Primary Care Provider Unavailab donald [facility] Primary Care Provider UnavailVijaya Walsh MD Primary Care Provider [phone] Harish Murrell Primary Care Provider Unavailab bennett Encounter Details Date Type Department Care Team Description 07/23/2015 DIGITAL PHOTOGRAPHIC PRINTER/[facility] Report Medical Records [address] [place] [id number] Abstract, Provider Social History Tobacco Use Types [...] on filedocumented in this encounter Care Teams Hose Coupling Joiner Relationship Specialty Start Date End Date Roxanne Wooten MD PCP - General Internal Medicine 01/20/12 04/17/21 Nora Michelle MD PCP - General Internal Medicine 04/18/21 06/10/21 [facility] PCP - General Internal Medicine 06/11/21 02/22/23 Vijyaa Tran MD [address] [place] [address] PCP - General Internal Medicine 02/23/23 11/05/23 Harish Murrell [address] [place] [address] PCP - General Internal Medicine 11/06/23 documented as of this encounter
--- OUTSIDE RECORDS SUMMARY | 2025-09-05 18:38 | XMS_ITS | Encounter Summary ---
Author Organization [facility] Prior to 07/08/2024 Address [address] [place] [address] Care Team Providers Care Photo Specialist Name Role Phone Roxanne Wooten MD Primary Care Provider Unava Nora Rolon MD Primary Care Provider Unavailab [facility] Primary Care Provider UnavailVijaya Walsh MD Primary Care Provider [phone] Harish Murrell Primary [facility] Encounter Details Date Type Department Care Team Description 07/02/2018 Pt. Non Urgent Medic al Question Adult Medicine [address] [address] Roxanne Wooten MD Social History Tobacco Use [...] Progress Notes * Shara Danielson M.A. - 07/02/2018 3:09 PM EDTFrom: Miracle Joseph To: Roxanne Wooten MD Sent: 07/02/2018 3:05 PM EDT Subject: Meds After 07/02 visit...In thinking about it, I???ve decided I would like to keep taking the low dose aspirin for now for other reasons. Just letting you know so they can note my chart. documented in this encounter Plan of Treatment Not on file documented as of this encounter Visit Diagnoses Not on filedocumented in this encounter Care Teams Photo Specialist Relationship Specialty Start Date End Date Roxanne Wooten MD PCP - General Internal Medicine 01/20/12 04/17/21 Nora Michelle MD PCP - General Internal Medicine 04/18/21 06/10/21 [facility] Pcp PCP - General Internal Medicine 06/11/21 02/22/23 Vijaya Tran MD [address] [place] [address] PCP - General Internal Medicine 02/23/23 11/05/23 Harish Murrell [address] [place] [address] PCP - General Internal Medicine 11/06/23 documented as of this encounter
--- OUTSIDE RECORDS SUMMARY | 2025-09-05 18:38 | XMS_ITS | Encounter Summary ---
Author Organization Sophie [facility] Prior to 07/08/2024 Address [address] [place] [address] Care Team Providers Care Take Out Waitress Name Role Phone Roxanne Wooten MD Primary Care Provider Unava Nora Rolon MD Primary Care Provider Unavailab [facility] Primary Care Provider UnavailVijaya Walsh MD Primary Care Provider [phone] Harish Murrell Primary Care Provider Unavailab Encounter Details Date Type Department Care Team Description 07/26/2015 Pt. Non Urgent Medical Question Cardiology - [address] [address] Ning Spivey MD [address] [place] [address] Social History Tobacco Use Types Packs/Day Years [...] on filedocumented in this encounter Care Teams Take Out Waitress Relationship Specialty Start Date End Date Roxanne Wooten MD PCP - General Internal Medicine 01/20/12 04/17/21 Nora Michelle MD PCP - General Internal Medicine 04/18/21 06/10/21 [facility] PCP - General Internal Medicine 06/11/21 02/22/23 Vijaya Tran MD [address] [place] [address] PCP - General Internal Medicine 02/23/23 11/05/23 Harish Murrell [address] [place] [address] PCP - General Internal Medicine 11/06/23 documented as of this encounter
--- OUTSIDE RECORDS SUMMARY | 2025-09-05 18:38 | XMS_ITS | Encounter Summary ---
Author Organization [facility] Prior to 07/08/2024 Address [address] [place] [address] Care Team Providers Care Conventional Underwriter Name Role Phone Roxanne Wooten MD Primary Care Provider Unava ilNora Rodríguez MD Primary Care Provider Unavailab le [facility], Pcp Primary Care Provider Unavailabl Vijaya Maldonado MD Primary Care Provider [phone] Harish Murrell Primary Care Provider Unavailab le Reason for Visit * Reason Onset Date Comments Cough 10/10/2019 Encounter Details Date Type Department Care Team Description 10/10/2019 Pt. Non Urgent Medical Question Adult Urgent Care - [address] [address] Roxanne Wooten MD Cough (Primary Dx) Social [...] Cough documented in this encounter Care Teams Conventional Underwriter Relationship Specialty Start Date End Date Roxanne Wooten MD PCP - General Internal Medicine 01/20/12 04/17/21 Nora Michelle MD PCP - General Internal Medicine 04/18/21 06/10/21 [facility] PCP - General Internal Medicine 06/11/21 02/22/23 Vijaya Tran MD [address] [place] [address] PCP - General Internal Medicine 02/23/23 11/05/23 Harish Murrell [address] [place] [address] PCP - General Internal Medicine 11/06/23 documented as of this encounter
--- OUTSIDE RECORDS SUMMARY | 2025-09-05 18:38 | XMS_ITS | Encounter Summary ---
Author Organization Sophie [facility] Prior to 07/08/2024 Address [address] [place] [address] Care Team Providers Care Job Specification Writer Name Role Phone Roxanne Wooten MD Primary Care Provider Agustinava Nora Rolon MD Primary Care Provider Unavailab [facility] Primary Care Provider UnavailVijaya Walsh MD Primary Care Provider [phone] Harish Murrell Primary Care Provider Unavail Encounter Details Date Type Department Care Team Description 07/17/2017 Pt. Non Urgent Medical Question Cardiology - [address] [address] Ning Spivey MD [address] [place] [address] Social History Tobacco Use Types Packs/Day Years [...] on filedocumented in this encounter Care Teams Job Specification Writer Relationship Specialty Start Date End Date Roxanne Wooten MD PCP - General Internal Medicine 01/20/12 04/17/21 Nora Michelle MD PCP - General Internal Medicine 04/18/21 06/10/21 [facility] PCP - General Internal Medicine 06/11/21 02/22/23 Vijaya Tran MD [address] [place] [address] PCP - General Internal Medicine 02/23/23 11/05/23 Harish Murrell [address] [place] [address] PCP - General Internal Medicine 11/06/23 documented as of this encounter
--- OUTSIDE RECORDS SUMMARY | 2025-09-05 18:38 | XMS_ITS | Encounter Summary ---
Author Organization Sophie [facility] Prior to 07/08/2024 Address [address] [place] [address] Care Team Providers Care Pilot Plant Supervisor Name Role Phone Roxanne Wooten MD Primary Care Provider Unava ilNora Rodríguez MD Primary Care Provider Unavailab donald [facility] Pcp Primary Care Provider UnavailVijaya Walsh MD Primary Care Provider [phone] Harish Murrell Primary Care Provider Unavailab bennett Encounter Details Date Type Department Care Team Description 08/22/2015 [facility] Medical Records [address] [place] [address] Social History Tobacco Use Types Packs/Day Years [...] on filedocumented in this encounter Care Teams Pilot Plant Supervisor Relationship Specialty Start Date End Date Roxanne Wooten MD PCP - General Internal Medicine 01/20/12 04/17/21 Nora Michelle MD PCP - General Internal Medicine 04/18/21 06/10/21 [facility], Pcp PCP - General Internal Medicine 06/11/21 02/22/23 Vijaya Tran MD [address] [place] [address] PCP - General Internal Medicine 02/23/23 11/05/23 Harish Murrell [address] [place] [address] PCP - General Internal Medicine 11/06/23 documented as of this encounter
--- OUTSIDE RECORDS SUMMARY | 2025-09-05 18:38 | XMS_ITS | Encounter Summary ---
Author Organization Sophie [facility] Prior to 07/08/2024 Address [address] [place] [address] Care Team Providers Care Back Tender Paper Machine Name Role Phone Roxanne Wooten MD Primary Care Provider Unava ilNora Rodríguez MD Primary Care Provider Unavailab donald [facility] Primary Care Provider UnavailVijaya Walsh MD Primary Care Provider Harish Murrell Primary Care Provider Unavailab bennett Encounter Details Date Type Department Care Team Description 08/16/2015 [facility] Medical Records [address] [place] [address] Deven Sheth MD Social History Tobacco Use [...] on filedocumented in this encounter Care Teams Back Tender Paper Machine Relationship Specialty Start Date End Date Roxanne Wooten MD PCP - General Internal Medicine 01/20/12 04/17/21 Nora Michelle MD PCP - General Internal Medicine 04/18/21 06/10/21 [facility] PCP - General Internal Medicine 06/11/21 02/22/23 Vijaya Tran MD [address] [place] [address] PCP - General Internal Medicine 02/23/23 11/05/23 Harish Murrell [address] [place] [address] PCP - General Internal Medicine 11/06/23 documented as of this encounter
--- OUTSIDE RECORDS SUMMARY | 2025-09-05 18:38 | XMS_ITS | Encounter Summary ---
Author Organization [facility] Prior to 07/08/2024 Address [address] [place] [address] Care Team Providers Care Network Specialist Name Role Phone Roxanne Wooten MD Primary Care Provider Unava ilNora Rodríguez MD Primary Care Provider Unavailab le [facility], Pcp Primary Care Provider Unavailabl Vijaya Maldonado MD Primary Care Provider Harish Murrell Primary Care Provider Unavailab le Reason for Referral * EXTERNAL (Priority) - Authorized/Booked Specialty Diagnoses / Procedures Referred By Conttapan t Referred To Contact Urology Procedures REFERRAL TO UROLOGY Cheyenne Warner PA-C [address] [place] [address] Emeli Roy MD [address] [place] [address] [address] [place] [id number] Referral ID Status Reason Start Date Expiration Date V isits Requested Visits Authorized SEE NOTE Authorized/B ooked 09/23/2016 12/22/2016 1 1 Encounter Details Date Type Department Care Team Description 09/23/2016 Orders Only Adult Medicine A - [address] [address] Cheyenne Warner PA-C Social History Tobacco Use Types Packs/Day [...] on filedocumented in this encounter Care Teams Network Specialist Relationship Specialty Start Date End Date Roxanne Wooten MD PCP - General Internal Medicine 01/20/12 04/17/21 Nora Michelle MD PCP - General Internal Medicine 04/18/21 06/10/21 [facility] PCP - General Internal Medicine 06/11/21 02/22/23 [place] [address] PCP - General Internal Medicine 02/23/23 11/05/23 Harish Murrell [address] [place] [address] PCP - General Internal Medicine 11/06/23 documented as of this encounter
--- OUTSIDE RECORDS SUMMARY | 2025-09-05 18:38 | XMS_ITS | Encounter Summary ---
Author Organization Sophie [facility] Prior to 07/08/2024 Address [address] [place] [address] Care Team Providers Care Blueprint Reader Name Role Phone Roxanne Wooten MD Primary Care Provider Unava Nora Rolon MD Primary Care Provider Unavailab [facility], [facility] Primary Care Provider UnavailVijaya Walsh MD Primary Care Provider [phone] Harish Murrell Primary Care Provider Unavailab Encounter Details Date Type Department Care Team Description 01/25/2018 Pt. Non Urgent Medic al Question Adult Medicine [address] [address] Roxanne Wooten MD Social History Tobacco Use [...] Progress Notes * Shara Danielson M.A. - 01/25/2018 11:41 AM EDTFrom: Miracle Joseph To: Roxanne Wooten MD Sent: 01/25/2018 11:36 AM EDT Subject: regarding appointment and prescriptions Was able to get an earlier appointment with Dr Wooten tomorrow 01/26/18 at 3:45. This should suffice for script renewals I believe. Thank you. documented in this encounter Plan of Treatment Not on file documented as of this encounter Visit Diagnoses Not on filedocumented in this encounter Care Teams Blueprint Reader Relationship Specialty Start Date End Date Roxanne Wooten MD PCP - General Internal Medicine 01/20/12 04/17/21 Nora Michelle MD PCP - General Internal Medicine 04/18/21 06/10/21 [facility] PCP - General Internal Medicine 06/11/21 02/22/23 Vijaya Tran MD [address] [place] [address] PCP - General Internal Medicine 02/23/23 11/05/23 Harish Murrell [address] [place] [address] PCP - General Internal Medicine 11/06/23 documented as of this encounter
--- OUTSIDE RECORDS SUMMARY | 2025-09-05 18:38 | XMS_ITS | Encounter Summary ---
Author Organization Sophie [facility] Prior to 07/08/2024 Address [address] [place] [address] Care Team Providers Care Landfill Gas Plant Field Technician Name Role Phone Roxanne Wooten MD Primary Care Provider Agustinava Nora Rolon MD Primary Care Provider Unavailab [facility] Pcp Primary Care Provider UnavailVijaya Walsh MD Primary Care Provider [phone] Harish Murrell Primary Care Provider Unavailab Encounter Details Date Type Department Care Team Description 05/25/2018 Orders Only Adult Medicine [address] [address] Sylvia Callejas PA-C [address] [place] [address] Special screening for malignant neoplasms, colon Social [...] colon documented in this encounter Care Teams Landfill Gas Plant Field Technician Relationship Specialty Start Date End Date Roxanne Wooten MD PCP - General Internal Medicine 01/20/12 04/17/21 Nora Michelle MD PCP - General Internal Medicine 04/18/21 06/10/21 [facility] PCP - General Internal Medicine 06/11/21 02/22/23 Vijaya Tran MD [address] [place] [address] PCP - General Internal Medicine 02/23/23 11/05/23 Harish Murrell [address] [place] [address] PCP - General Internal Medicine 11/06/23 documented as of this encounter
--- OUTSIDE RECORDS SUMMARY | 2025-09-05 18:38 | XMS_ITS | Encounter Summary ---
Author Organization Sophie [email or web address] [facility] Prior to 07/08/2024 Address [address] [place] [address] Care Team Providers Care Movie Writer Name Role Phone Roxanne Wooten MD Primary Care Provider Agustinava Nora Rolon MD Primary Care Provider Unavailab donald [facility] Primary Care Provider Vijaya Mo MD Primary Care Provider [phone] Harish Murrell Primary Care Provider Unavail Encounter Details Date Type Department Care Team Description 03/03/2018 Orders Only General Surgery - [place] [address] [address] Andrzej Sampson MD [address] [place] [address] Microcalcifications of the breast (Primary Dx) [...] microcalcification documented in this encounter Care Teams Movie Writer Relationship Specialty Start Date End Date Roxanne Wooten MD PCP - General Internal Medicine 5/15/12 8/11/21 Nora Michelle MD PCP - General Internal Medicine 04/18/21 06/10/21 [facility], [facility] PCP - General Internal Medicine 06/11/21 02/22/23 Vijaya Tran MD [address] [place] [address] PCP - General Internal Medicine 02/23/23 11/05/23 Harish Murrell [address] [place] [address] PCP - General Internal Medicine 11/06/23 documented as of this encounter
--- OUTSIDE RECORDS SUMMARY | 2025-09-05 18:38 | XMS_ITS | Encounter Summary ---
Author Organization Sophie [facility] [facility] Prior to 07/08/2024 Address [address] [place] [address] Care Team Providers Care Paint Grinder Name Role Phone [facility], [facility] Primary Care Provider Unavailabl Vijaya Maldonado MD Primary Care Provider [phone] Harish Murrell Primary Care Provider Unavailab bennett Encounter Details Date Type Department Care Team Description 12/31/2021 [facility] Report Medical Records [address] [place] [address] Jose Manuel Barrett MD Social History Tobacco [...] on filedocumented in this encounter Care Teams Paint Grinder Relationship Specialty Start Date End Date [facility], Pcp PCP - General Internal Medicine 06/11/21 02/22/23 Vijaya Tran MD [address] [place] [id number] PCP - General Internal Medicine 02/23/23 11/05/23 Harish Murrell [address] [place] [address] PCP - General Internal Medicine 11/06/23 documented as of this encounter
--- OUTSIDE RECORDS SUMMARY | 2025-09-05 18:38 | XMS_ITS | Encounter Summary ---
Author Organization Sophie [facility] Prior to 07/08/2024 Address [address] [place] [address] Care Team Providers Care Head Of Stock Name Role Phone Roxanne Wooten MD Primary Care Provider Unava ilNora Rodríguez MD Primary Care Provider Unavailab donald [facility] Primary Care Provider UnavailVijaya Walsh MD Primary Care Provider [phone] Harish Murrell Primary Care Provider Unavailab bennett Encounter Details Date Type Department Care Team Description 08/18/2015 [facility] Medical Records [address] [place] [address] Carmen Calderón Social History Tobacco Use Types [...] on filedocumented in this encounter Care Teams Head Of Stock Relationship Specialty Start Date End Date Roxanne Wooten MD PCP - General Internal Medicine 01/20/12 04/17/21 Nora Michelle MD PCP - General Internal Medicine 04/18/21 06/10/21 [facility], [facility] PCP - General Internal Medicine 06/11/21 02/22/23 Vijaya Tran MD [address] [place] [address] PCP - General Internal Medicine 02/23/23 11/05/23 Harish Murrell [address] [place] [address] PCP - General Internal Medicine 11/06/23 documented as of this encounter
--- OUTSIDE RECORDS SUMMARY | 2025-09-05 18:38 | XMS_ITS | Encounter Summary ---
Author Organization Sophie [employer] [facility] Prior to 07/08/2024 Address [address] [place] [address] Care Team Providers Care Barrow Worker Name Role Phone Roxanne Wooten MD Primary Care Provider Unava ilNora Rodríguez MD Primary Care Provider Unavailab donald [facility] Primary Care Provider UnavailVijaya Walsh MD Primary Care Provider [phone] Harish Murrell Primary Care Provider Unavailab bennett Encounter Details Date Type Department Care Team Description 08/30/2015 Corporate Controller Report Medical Records [address] [place] [address] Cheyenne Simeon Social History Tobacco Use Types [...] on filedocumented in this encounter Care Teams Barrow Worker Relationship Specialty Start Date End Date Roxanne Wooten MD PCP - General Internal Medicine 01/20/12 04/17/21 Nora Michelle MD PCP - General Internal Medicine 04/18/21 06/10/21 [facility], [facility] PCP - General Internal Medicine 06/11/21 02/22/23 Vijaya Tran MD [address] [place] [address] PCP - General Internal Medicine 02/23/23 11/05/23 Harish Murrell [address] [place] [address] PCP - General Internal Medicine 11/06/23 documented as of this encounter
--- OUTSIDE RECORDS SUMMARY | 2025-09-05 18:38 | XMS_ITS | Encounter Summary ---
Author Organization Sophie [employer] [facility] Prior to 07/08/2024 Address [address] [place] [address] Care Team Providers Care Principal Mechanical Engineer Name Role Phone Roxanne Wooten MD Primary Care Provider Unava ilNora Rodríguez MD Primary Care Provider Unavailab le [facility], Pcp Primary Care Provider Unavailabl Vijaya Maldonado MD Primary Care Provider [phone] Harish Murrell Primary Care Provider Unavailab le Reason for Visit * Reason Onset Date Comments APPOINTMENT 07/31/2015 Encounter Details Date Type Department Care Team Description 07/31/2015 Telephone Radiology - [address] [address] Chepe Horan MD APPOINTMENT Social History Tobacco [...] Patient calling back, please call her at [phone], thanks * Telephone Encounter - Cheep Horan MD - 07/31/2015 12:37 PM EST [...] on filedocumented in this encounter Care Teams Principal Mechanical Engineer Relationship Specialty Start Date End Date Roxanne Wooten MD PCP - General Internal Medicine 01/20/12 04/17/21 Nora Michelle MD PCP - General Internal Medicine 04/18/21 06/10/21 [facility] PCP - General Internal Medicine 06/11/21 02/22/23 Vijaya Tran MD [address] [place] [address] PCP - General Internal Medicine 02/23/23 11/05/23 Harish Murrell [address] [place] [address] PCP - General Internal Medicine 11/06/23 documented as of this encounter
--- OUTSIDE RECORDS SUMMARY | 2025-09-05 18:38 | XMS_ITS | Encounter Summary ---
Author Organization Sophie [employer] [facility] Prior to 07/08/2024 Address [address] [place] [address] Care Team Providers Care Live In Housekeeper Nanny Name Role Phone Roxanne Wooten MD Primary Care Provider Unava Nora Rolon MD Primary Care Provider Unavailab le [facility], [facility], Pcp Primary Care Provider Unavailabl Vijaya Maldonado MD Primary Care Provider [phone] Harish Murrell Primary Care Provider Unavailab le Reason for Referral * Non ADOLFO (Routine) - Closed Specialty Diagnoses / Procedures Referred By Tony cleary Referred To Contact General Surgery Procedures REFERRAL TO GENERAL SURGERY Roxanne Wooten MD [address] [place] [id number] Gen Surg/[place] [address] [facility] [address] [place] [id number] Referral ID Status Reason Start Date Expiration Date Visits Re quested Visits Authorized [id number] Closed 02/15/2018 02/15/2019 1 1 Encounter Details Date Type Department Care Team Description 02/15/2018 Orders Only Radiology - [place] [address] [place] [address] Roxanne Wooten MD Abnormal mammogram with microcalcification [...] microcalcification documented in this encounter Care Teams Live In Housekeeper Nanny Relationship Specialty Start Date End Date Roxanne Wooten MD PCP - General Internal Medicine 01/20/12 04/17/21 Nora Michelle MD PCP - General Internal Medicine 04/18/21 06/10/21 [facility] PCP - General Internal Medicine 06/11/21 02/22/23 Vijaya Tran MD [address] [place] [address] PCP - General Internal Medicine 02/23/23 11/05/23 Harish Murrell [address] [place] [address] PCP - General Internal Medicine 11/06/23 documented as of this encounter
--- OUTSIDE RECORDS SUMMARY | 2025-09-05 18:38 | XMS_ITS | Encounter Summary ---
Author Organization Sophie [employer] [facility] Prior to 07/08/2024 Address [address] [place] [address] Care Team Providers Care Sheltered Workshop Worker Name Role Phone Roxanne Wooten MD Primary Care Provider Unava Nora Rolon MD Primary Care Provider Unavailab [facility] Primary Care Provider UnavailVjiaya Walsh MD Primary Care Provider [phone] Harish Murrell Primary Care Provider [facility] Encounter Details Date Type Department Care Team Description 08/10/2018 Pt. Non Urgent Medic al Question Adult Medicine [address] [address] Roxanne Wooten MD Social History Tobacco Use [...] discussed before...l call it into [facility] calls me with my dosing, they [...] on filedocumented in this encounter Care Teams Sheltered Workshop Worker Relationship Specialty Start Date End Date Roxanne Wooten MD PCP - General Internal Medicine 01/20/12 04/17/21 Nora Michelle MD PCP - General Internal Medicine 04/18/21 06/10/21 [facility] Pcp PCP - General Internal Medicine 06/11/21 02/22/23 Vijaya Tran MD [address] [place] [address] PCP - General Internal Medicine 02/23/23 11/05/23 Harish Murrell [address] [place] [address] PCP - General Internal Medicine 11/06/23 documented as of this encounter
--- OUTSIDE RECORDS SUMMARY | 2025-09-05 18:38 | XMS_ITS | Encounter Summary ---
Author Organization Sophie [employer] [facility] Prior to 07/08/2024 Address [address] [place] [address] Care Team Providers Care Senior Telecommunications Consultant Name Role Phone Roxanne Wooten MD Primary Care Provider Agustinava Nora Rolon MD Primary Care Provider Unavailab [facility] Primary Care Provider UnavailVijaya Walsh MD Primary Care Provider [phone] Harish Murrell Primary Care Provider [facility] Encounter Details Date Type Department Care Team Description 07/25/2020 Pt. Non Urgent Medic al Question Adult Medicine [address] [address] Roxanne Wooten MD Social History Tobacco Use [...] AM EST Subject: prescription error Went to strip picker my Metformin ER 500 mg prescription this weekend...the script was written for 2 tabs a day and I was taking 3 tabs a day. [facility] [place] contacted you but hasn't received an answer [...] on filedocumented in this encounter Care Teams Senior Telecommunications Consultant Relationship Specialty Start Date End Date Roxanne Wooten MD PCP - General Internal Medicine 01/20/12 04/17/21 Nora Michelle MD PCP - General Internal Medicine 04/18/21 06/10/21 [facility], Pcp PCP - General Internal Medicine 06/11/21 02/22/23 Vijaya Tran MD [address] [place] [address] PCP - General Internal Medicine 02/23/23 11/05/23 Harish Murrell [address] [place] [address] PCP - General Internal Medicine 11/06/23 documented as of this encounter
--- OUTSIDE RECORDS SUMMARY | 2025-09-05 18:38 | XMS_ITS | Encounter Summary ---
Author Organization Sophie [employer] [facility] Prior to 07/08/2024 Address [address] [place] [address] Care Team Providers Care Inspector Motor Vehicles Name Role Phone Vijaya Tran MD Primary Care Provider [phone] Harish Murrell Primary Care Provider Unavailab le Encounter Details Date Type Department Care Team Description 11/04/2023 Orders Only Medical Records [address] [place] [address] Harish Murrell Social History Tobacco Use Types Packs/Day Years [...] Name Priority Date/Time Associated Diagnosis Comments OUTSIDE LAB Routine 09/19/2023 OUTSIDE ECHO Routine 09/16/2023 documented in this encounter Results * OUTSIDE LAB (09/19/2023) Harish Murrell LAB * OUTSIDE ECHO (09/16/2023) Harish Murrell CARDIOLOGY documented in this encounter Visit Diagnoses Not on filedocumented in this encounter Care Teams Inspector Motor Vehicles Relationship Specialty Start Date End Date Vijaya Tran MD [address] [place] [address] PCP - General Internal Medicine 02/23/23 11/05/23 Harish Murrell [address] [place] [address] PCP - General Internal Medicine 11/06/23 documented as of this encounter
--- OUTSIDE RECORDS SUMMARY | 2025-09-05 18:38 | XMS_ITS | Encounter Summary ---
Author Organization Sophie [employer] [facility] Prior to 07/08/2024 Address [address] [place] [address] Care Team Providers Care Orchestra Director Name Role Phone Roxanne Wooten MD Primary Care Provider Unava Nora Rolon MD Primary Care Provider Unavailab le [facility], Pcp Primary Care Provider Unavailabl Vijaya Maldonado MD Primary Care Provider [phone] Harish Murrell Primary Care Provider Unavailab le Reason for Visit * Reason Onset Date Comments Pre-procedure Consultation 07/01/2017 Encounter Details Date Type Department Care Team Description 07/01/2017 Pt. Non Urgent Medic al Question Adult Medicine [address] [address] Roxanne Wooten MD Social History Tobacco Use [...] Progress Notes * Nicol Cervantes L.P.N. - 07/01/2017 12:59 PM EDTFrom: Miracle Joseph To: Roxanne Wooten MD Sent: 07/01/2017 12:01 PM EDT Subject: Information needed Will be undergoing a ureteroscopy very soon [...] other doctors re: antibiotic being needed ? I did also send this request to the director strategic account management. Thanks ! documented in this encounter Plan of Treatment Not on file documented as of this encounter Visit Diagnoses Not on filedocumented in this encounter Care Teams Orchestra Director Relationship Specialty Start Date End Date Roxanne Wooten MD PCP - General Internal Medicine 01/20/12 04/17/21 Nora Michelle MD PCP - General Internal Medicine 04/18/21 06/10/21 [facility] PCP - General Internal Medicine 06/11/21 02/22/23 Vijaya Tran MD [address] [place] [address] PCP - General Internal Medicine 02/23/23 11/05/23 Harish Murrell [address] [place] [address] PCP - General Internal Medicine 11/06/23 documented as of this encounter
--- OUTSIDE RECORDS SUMMARY | 2025-09-05 18:38 | XMS_ITS | Encounter Summary ---
Author Organization Sophie [employer] [facility] Prior to 07/08/2024 Address [address] [place] [address] Care Team Providers Care Ammonium Nitrate Neutralizer Name Role Phone Roxanne Wooten MD Primary Care Provider Unava ilable Nora Michelle MD Primary Care Provider Unavailab donald [facility], [facility] Primary Care Provider Unavailabl Vijaya Maldonado MD Primary Care Provider [phone] Harish Murrell Primary Care Provider Unavail Encounter Details Date Type Department Care Team Description 12/03/2016 Claims Consultant Report Medical Records [address] [place] [address] Merlyn Chaudhari PA-C Social History Tobacco Use [...] on filedocumented in this encounter Care Teams Ammonium Nitrate Neutralizer Relationship Specialty Start Date End Date Roxanne Wooten MD PCP - General Internal Medicine 01/20/12 04/17/21 Nora Michelle MD PCP - General Internal Medicine 04/18/21 06/10/21 [facility], [facility] PCP - General Internal Medicine 06/11/21 02/22/23 Vijaya Tran MD [address] [place] [address] PCP - General Internal Medicine 02/23/23 11/05/23 Harish Murrell [address] [place] [address] PCP - General Internal Medicine 11/06/23 documented as of this encounter
--- OUTSIDE RECORDS SUMMARY | 2025-09-05 18:39 | XMS_ITS | Encounter Summary ---
Author Organization Sophie [employer] [facility] Prior to 07/08/2024 Address [address] [place] [address] Care Team Providers Care Mat Sewer Name Role Phone Roxanne Wooten MD Primary Care Provider Unava ilNora Rodríguez MD Primary Care Provider Unavailab bennett [facility] Primary Care Provider UnavailVijaya Walsh MD Primary Care Provider [phone] Harish Murrell Primary Care Provider Kelly bennett Encounter Details Date Type Department Care Team Description 05/24/2014 Release of Information Medical Records [address] [place] [address] Abstract, Provider Social History Tobacco Use Types [...] on filedocumented in this encounter Care Teams Mat Sewer Relationship Specialty Start Date End Date Roxanne Wooten MD PCP - General Internal Medicine 01/20/12 04/17/21 Nora Michelle MD PCP - General Internal Medicine 04/18/21 06/10/21 [facility], [facility] PCP - General Internal Medicine 06/11/21 02/22/23 Vijaya Tran MD [address] [place] [address] PCP - General Internal Medicine 02/23/23 11/05/23 Harish Murrell [address] [place] [address] PCP - General Internal Medicine 11/06/23 documented as of this encounter
--- OUTSIDE RECORDS SUMMARY | 2025-09-05 18:39 | XMS_ITS | Encounter Summary ---
Author Organization Sophie [employer] [facility] Prior to 07/08/2024 Address [address] [place] [address] Care Team Providers Care Tour Leader Name Role Phone Roxanne Wooten MD Primary Care Provider Unava Nora Rolon MD Primary Care Provider Unavailab le [facility], Pcp Primary Care Provider UnavailVijaya Walsh MD Primary Care Provider [phone] Harish Murrell Primary Care Provider Unavailab le Reason for Visit * Reason Onset Date Comments Medication 01/07/2016 Encounter Details Date Type Department Care Team Description 01/07/2016 Pt. Non Urgent Medic al Question Adult Medicine [address] [address] Roxanne Wooten MD Social History Tobacco Use [...] this encounter Progress Notes * Nicol Cervantes LDemiP.N. - 01/07/2016 2:14 PM EDTFrom: Miracle Joseph [...] on filedocumented in this encounter Care Teams Tour Leader Relationship Specialty Start Date End Date Roxanne Wooten MD PCP - General Internal Medicine 01/20/12 04/17/21 Nora Michelle MD PCP - General Internal Medicine 04/18/21 06/10/21 [facility], [facility] PCP - General Internal Medicine 06/11/21 02/22/23 Vijaya Tran MD [address] [place] [address] PCP - General Internal Medicine 02/23/23 11/05/23 Harish Murrell [address] [place] [address] PCP - General Internal Medicine 11/06/23 documented as of this encounter
--- OUTSIDE RECORDS SUMMARY | 2025-09-05 18:39 | XMS_ITS | Encounter Summary ---
Author Organization Sophie [employer] [facility] Prior to 07/08/2024 Address [address] [place] [address] Care Team Providers Care School Age Program Associate Name Role Phone Roxanne Wooten MD Primary Care Provider Unava ilNora Rodríguez MD Primary Care Provider Unavailab le [facility], Pcp Primary Care Provider Unavailabl Vijaya Maldonado MD Primary Care Provider [phone] Harish Murrell Primary Care Provider Unavailab le Reason for Visit * Reason Onset Date Comments medication problems 03/02/2012 Encounter Details Date Type Department Care Team Description 03/02/2012 Telephone Adult Medicine [address] [address] Roxanne Wooten MD medication problems Social History [...] filedocumented in this encounter Care Teams School Age Program Associate Relationship Specialty Start Date End Date Roxanne Wooten MD PCP - General Internal Medicine 01/20/12 04/17/21 Nora Michelle MD PCP - General Internal Medicine 04/18/21 06/10/21 [facility], Pcp PCP - General Internal Medicine 06/11/21 02/22/23 Vijaya Tran MD [address] [place] [address] PCP - General Internal Medicine 02/23/23 11/05/23 Harish Murrell [address] [place] [address] PCP - General Internal Medicine 11/06/23 documented as of this encounter
--- OUTSIDE RECORDS SUMMARY | 2025-09-05 18:39 | XMS_ITS | Encounter Summary ---
Author Organization Sophie [employer] [facility] Prior to 07/08/2024 Address [address] [place] [address] Care Team Providers Care Senior Data Warehouse Architect Name Role Phone Roxanne Wooten MD Primary Care Provider Unava ilNora Rodríguez MD Primary Care Provider Unavailab donald [facility] Primary Care Provider UnavailVijaya Walsh MD Primary Care Provider [phone] Harish Murrell Primary Care Provider Unavailab bennett Encounter Details Date Type Department Care Team Description 05/08/2016 Physician Advisor Report Medical Records [address] [place] [address] Corby Uriarte MD Social History Tobacco Use [...] filedocumented in this encounter Care Teams Senior Data Warehouse Architect Relationship Specialty Start Date End Date Roxanne Wooten MD PCP - General Internal Medicine 01/20/12 04/17/21 Nora Michelle MD PCP - General Internal Medicine 04/18/21 06/10/21 [facility], [facility] PCP - General Internal Medicine 06/11/21 02/22/23 Vijaya Tran MD [address] [place] [address] PCP - General Internal Medicine 02/23/23 11/05/23 Harish Murrell [address] [place] [address] PCP - General Internal Medicine 11/06/23 documented as of this encounter
--- OUTSIDE RECORDS SUMMARY | 2025-09-05 18:39 | XMS_ITS | Encounter Summary ---
Author Organization Sophie [employer] [facility] Prior to 07/08/2024 Address [address] [place] [address] Care Team Providers Care Stem Cutter Name Role Phone Roxanne Wooten MD Primary Care Provider Unava ilNora Rodríguez MD Primary Care Provider Unavailab [facility] Primary Care Provider UnavailVijaya Walsh MD Primary Care Provider [phone] Harish Murrell Primary Care Provider Unavail Encounter Details Date Type Department Care Team Description 05/10/2014 Orders Only Radiology - [place] [address] [place] [address] Merlyn Chaudhari PA-C Type II or unspecified [...] Primary documented in this encounter Care Teams Stem Cutter Relationship Specialty Start Date End Date Roxanne Wooten MD PCP - General Internal Medicine 01/20/12 04/17/21 Nora Michelle MD PCP - General Internal Medicine 04/18/21 06/10/21 [facility], Pcp PCP - General Internal Medicine 06/11/21 02/22/23 Vijaya Tran MD [address] [place] [address] PCP - General Internal Medicine 02/23/23 11/05/23 Harish Murrell [address] [place] [address] PCP - General Internal Medicine 11/06/23 documented as of this encounter
--- OUTSIDE RECORDS SUMMARY | 2025-09-05 18:39 | XMS_ITS | Encounter Summary ---
Author Organization Sophie [employer] [facility] Prior to 07/08/2024 Address [address] [place] [address] Care Team Providers Care Electrical Wiring Lineman Name Role Phone Roxanne Wooten MD Primary Care Provider Unava ilNora Rodríguez MD Primary Care Provider Unavailab donald [facility], [facility] Primary Care Provider UnavailVijaya Walsh MD Primary Care Provider [phone] Harish Murrell Primary Care Provider eKlly bennett Encounter Details Date Type Department Care Team Description 05/26/2014 [facility] Medical Records [address] [place] [address] Emeli Roy MD Social History Tobacco Use [...] on filedocumented in this encounter Care Teams Electrical Wiring Lineman Relationship Specialty Start Date End Date Roxanne Wooten MD PCP - General Internal Medicine 01/20/12 04/17/21 Nora Michelle MD PCP - General Internal Medicine 04/18/21 06/10/21 [facility], [facility] PCP - General Internal Medicine 06/11/21 02/22/23 Vijaya Tran MD [address] [place] [address] PCP - General Internal Medicine 02/23/23 11/05/23 Harish Murrell [address] [place] [address] PCP - General Internal Medicine 11/06/23 documented as of this encounter
--- OUTSIDE RECORDS SUMMARY | 2025-09-05 18:39 | XMS_ITS | Encounter Summary ---
Author Organization Sophie [employer] [facility] Prior to 07/08/2024 Address [address] [place] [address] Care Team Providers Care Test Center Administrator Name Role Phone Roxanne Wooten MD Primary Care Provider Unava ilNora Rodríguez MD Primary Care Provider Unavailab donald [facility] Primary Care Provider UnavailVijaya Walsh MD Primary Care Provider [phone] Harish Murrell Primary Care Provider Unavailab bennett Encounter Details Date Type Department Care Team Description 09/18/2014 Supervisor Dyer Report Medical Records [address] [place] [address] Emeli Roy MD Social History Tobacco Use [...] on filedocumented in this encounter Care Teams Test Center Administrator Relationship Specialty Start Date End Date Roxanne Wooten MD PCP - General Internal Medicine 01/20/12 04/17/21 Nora Michelle MD PCP - General Internal Medicine 04/18/21 06/10/21 [facility] PCP - General Internal Medicine 06/11/21 02/22/23 Vijaya Tran MD [address] [place] [address] PCP - General Internal Medicine 02/23/23 11/05/23 Harish Murrell [address] [place] [address] PCP - General Internal Medicine 11/06/23 documented as of this encounter
--- OUTSIDE RECORDS SUMMARY | 2025-09-05 18:39 | XMS_ITS | Encounter Summary ---
Author Organization Sophie [employer] [facility] Prior to 07/08/2024 Address [address] [place] [address] Care Team Providers Care Field Sales Consultant Name Role Phone Sharon Olmedo MD Primary Care Provider [phone] Raúl Schulte MD Primary Care Provider Roxanne Soto MD Primary Care Provider Nora Peres MD [facility] Primary Care Provider UnavailVijaya Walsh MD Primary Care Provider [phone] Harish Murrell Primary [facility] Encounter Details Date Type Department Care Team Description 12/02/2010 [facility] Medical Records [address] [place] [address] Abstract, Provider Social History Tobacco Use Types [...] on filedocumented in this encounter Care Teams Field Sales Consultant Relationship Specialty Start Date End Date Sharon Olmedo MD [address] [place] [id number] PCP - General 10/10/10 10/14/11 Raúl Schulte MD [address] [place] [address] PCP - General Internal Medicine 10/15/11 01/19/12 Roxanne Wooten MD [address] [place] [address] PCP - General Internal Medicine 01/20/12 04/17/21 Nroa Michelle MD [address] [place], [place] [phone] PCP - General Internal Medicine 04/18/21 06/10/21 [facility], Pcp [address] [place] [address] PCP - General Internal Medicine 06/11/21 02/22/23 Vijaya Tran MD [address] [place], [place] [address] PCP - General Internal Medicine 02/23/23 11/05/23 Harish Murrell [address] [place], [place] [address] PCP - General Internal Medicine 11/06/23 documented as of this encounter
--- OUTSIDE RECORDS SUMMARY | 2025-09-05 18:39 | XMS_ITS | Encounter Summary ---
Author Organization Sophie [facility] Prior to 07/08/2024 Address [address] [place] [address] Care Team Providers Care Mason Apprentice Name Role Phone Roxanne Wooten MD Primary Care Provider Unava ilNora Rodríguez MD Primary Care Provider Unavailab donald [facility] Primary Care Provider UnavailVijaya Walsh MD Primary Care Provider [phone] Harish Murrell Primary Care Provider Unavailab bennett Encounter Details Date Type Department Care Team Description 11/20/2014 Local City Driver Report Medical Records [address] [place] [id number] Emeli Roy MD Social History Tobacco Use [...] on filedocumented in this encounter Care Teams Mason Apprentice Relationship Specialty Start Date End Date Roxanne Wooten MD PCP - General Internal Medicine 01/20/12 04/17/21 Nora Michelle MD PCP - General Internal Medicine 04/18/21 06/10/21 [facility], [facility] PCP - General Internal Medicine 06/11/21 02/22/23 Vijaya Tran MD [address] [place] [address] PCP - General Internal Medicine 02/23/23 11/05/23 Harish Murrell [address] [place] [address] PCP - General Internal Medicine 11/06/23 documented as of this encounter
--- OUTSIDE RECORDS SUMMARY | 2025-09-05 18:39 | XMS_ITS | Encounter Summary ---
Author Organization Sophie [employer] [facility] Prior to 07/08/2024 Address [address] [place] [address] Care Team Providers Care Political Scientist Name Role Phone Roxanne Wooten MD Primary Care Provider Unava Nora Rolon MD Primary Care Provider Unavailab [facility], [facility] Primary Care Provider UnavailVijaya Walsh MD Primary Care Provider Harish Murrell Primary Care Provider Unavailab Encounter Details Date Type Department Care Team Description 05/19/2014 Orders Only Radiology - [address] [address] Merlyn Chaudhari PA-C Type II or unspecified [...] as of this encounter Results * (ABNORMAL) CREATININE, BLOOD ASSAY (05/21/2014 9:07 AM EDT) CREAT 0.5(L) 0.7 - 1.5 mg/dL 05/21/2014 11:57 AM EDT [facility] GFR > 60 >60 05/21/2014 12:01 PM EDT [facility] Comment: If patient is -Beninese, multiply result by 1.21 Chronic Kidney Disease: < 60 ml/min/1.73 square meters Kidney Failure: < 15 ml/min/1.73 square meters 05/21/2014 9:07 AM EDT 05/21/2014 9:08 AM EDT Merlyn Chaudhari PA-C LAB [facility] [address] [facility] documented in this encounter Visit Diagnoses Diagnosis Type II or unspecified type diabetes mellitus without mention of complication, not stated as uncontrolled- Primary documented in this encounter Care Teams Political Scientist Relationship Specialty Start Date End Date Roxanne Wooten MD PCP - General Internal Medicine 01/20/12 04/17/21 Nora Michelle MD PCP - General Internal Medicine 04/18/21 06/10/21 [facility] PCP - General Internal Medicine 06/11/21 02/22/23 Vijaya Tran MD [address] [place] [address] PCP - General Internal Medicine 02/23/23 11/05/23 Harish Murrell [address] [place] [address] PCP - General Internal Medicine 11/06/23 documented as of this encounter
--- OUTSIDE RECORDS SUMMARY | 2025-09-05 18:39 | XMS_ITS | Encounter Summary ---
Author Organization Sophie [facility] Prior to 07/08/2024 Address [address] [place] [address] Care Team Providers Care Embroiderer Name Role Phone Roxanne Wooten MD Primary Care Provider Unava ilNora Rodríguez MD Primary Care Provider Unavailab donald [facility] Primary Care Provider UnavailVijaya Walsh MD Primary Care Provider [phone] Harihs Murrell Primary Care Provider Unavailab bennett Encounter Details Date Type Department Care Team Description 04/23/2016 [facility] Medical Records [address] [place] [address] Corby Uriarte MD Social History Tobacco Use [...] on filedocumented in this encounter Care Teams Embroiderer Relationship Specialty Start Date End Date Roxanne Wooten MD PCP - General Internal Medicine 01/20/12 04/17/21 Nora Michelle MD PCP - General Internal Medicine 04/18/21 06/10/21 [facility] PCP - General Internal Medicine 06/11/21 02/22/23 Vijaya Tran MD [address] [place] [address] PCP - General Internal Medicine 02/23/23 11/05/23 Harish Murrell [address] [place] [address] PCP - General Internal Medicine 11/06/23 documented as of this encounter
--- OUTSIDE RECORDS SUMMARY | 2025-09-05 18:39 | XMS_ITS | Encounter Summary ---
Author Organization Sophie [facility] Prior to 07/08/2024 Address [address] [place] [address] Care Team Providers Care Commercial Energy Rater Name Role Phone Roxanne Wooten MD Primary Care Provider Unava ilNora Rodríguez MD Primary Care Provider Unavailab donald [facility], [facility] Primary Care Provider UnavailVijaya Walsh MD Primary Care Provider Harish Murrell Primary Care Provider Unavailab bennett Encounter Details Date Type Department Care Team Description 06/01/2014 Manager Sports Report Medical Records [address] [place] [id number] Emeli Roy MD Social History Tobacco Use [...] on filedocumented in this encounter Care Teams Commercial Energy Rater Relationship Specialty Start Date End Date Roxanne Wooten MD PCP - General Internal Medicine 01/20/12 04/17/21 Nora Michelle MD PCP - General Internal Medicine 04/18/21 06/10/21 [facility], [facility] PCP - General Internal Medicine 06/11/21 02/22/23 Vijaya Tran MD [address] [place] [address] PCP - General Internal Medicine 02/23/23 11/05/23 Harish Murrell [address] [place] [address] PCP - General Internal Medicine 11/06/23 documented as of this encounter
--- OUTSIDE RECORDS SUMMARY | 2025-09-05 18:39 | XMS_ITS | Encounter Summary ---
Author Organization Sophie [facility] [facility] Prior to 07/08/2024 Address [address] [place] [address] Care Team Providers Care Spray Painting Machine Operator Name Role Phone Roxanne Wooten MD Primary Care Provider Unava ilNora Rodríguez MD Primary Care Provider Unavailab donald [facility] Primary Care Provider UnavailVijaya Walsh MD Primary Care Provider [phone] Harish Murrell Primary Care Provider Unavailab bennett Encounter Details Date Type Department Care Team Description 04/23/2016 Hospital Medical Records [address] [place] [address] Chepe Horan MD Social History Tobacco Use [...] on filedocumented in this encounter Care Teams Spray Painting Machine Operator Relationship Specialty Start Date End Date Roxanne Wooten MD PCP - General Internal Medicine 01/20/12 04/17/21 Nora Michelle MD PCP - General Internal Medicine 04/18/21 06/10/21 [facility] PCP - General Internal Medicine 06/11/21 02/22/23 Vijaya Tran MD [address] [place] [address] PCP - General Internal Medicine 02/23/23 11/05/23 Harish Murrell [address] [place] [address] PCP - General Internal Medicine 11/06/23 documented as of this encounter
--- OUTSIDE RECORDS SUMMARY | 2025-09-05 18:39 | XMS_ITS | Encounter Summary ---
Author Organization Sophie [facility] Prior to 07/08/2024 Address [address] [place] [address] Care Team Providers Care Hooker Off Name Role Phone Raúl Dunham MD Primary Care Provider Roxanne Soto MD Primary Care Provider Nora Peres MD Primary Care Provider Unavailab le [facility] Primary Care Provider UnavailVijaya Walsh MD Primary Care Provider Harish Murrell Primary Care Provider Unavailab le Reason for Visit * Reason Onset Date Comments LAB WORK 12/23/2011 Encounter Details Date Type Department Care Team Description 12/23/2011 Telephone Adult Medicine [address] [address] Raúl Dunham MD LAB WORK Social History [...] on filedocumented in this encounter Care Teams Hooker Off Relationship Specialty Start Date End Date Raúl Dunham MD PCP - General Internal Medicine 10/15/11 01/19/12 Roxanne Wooten MD PCP - General Internal Medicine 01/20/12 04/17/21 Nora Michelle MD PCP - General Internal Medicine 04/18/21 06/10/21 [facility] Pcp PCP - General Internal Medicine 06/11/21 02/22/23 Vijaya Tran MD [address] [place] [address] PCP - General Internal Medicine 02/23/23 11/05/23 Harish Murrell [address] [place] [address] PCP - General Internal Medicine 11/06/23 documented as of this encounter
--- OUTSIDE RECORDS SUMMARY | 2025-09-05 18:39 | XMS_ITS | Clinical Summary ---
Author Organization [facility] Address [address] [place] [address] Phone Care Team Providers Care Pattern And Chain Maker Name Role Phone Harish Farias Primary Care Provider [phone] Surgical History Surgery Date Site/Laterality Comments TONSILLECTOMY PROCEDURE: HISTORICAL TONSILLECTOMY OTHER SURGICAL HISTORY 05/26/14, 11/16/14 Right PROCEDURE: GA CYSTOURETHROSCOPY W/RMVL URETERAL CALCULUS; COMMENT: Dr. Roy, [facility] AORTIC VALVE REPLACEMENT 08/16/2015 PROCEDURE: HISTORICAL AORTIC VALVE REPL; COMMENT: Dr Sheth, [facility] BREAST BIOPSY 03/2018 Left PROCEDURE: GA BIOPSY BREAST OPEN INCISIONAL; COMMENT: [facility] OTHER SURGICAL HISTORY 04/23/2016 Left PROCEDURE: PARTIAL REMOVAL OF THYROI; COMMENT: Dr. Corby Uriarte, [facility] OTHER SURGICAL HISTORY 04/13/2019 Left PROCEDURE: REFERRAL TO DERMATOLOGY [facility]; COMMENT: Dr. Kate Oviedo; [facility] Medical History Medical History Date Comments [...] PM EDT Narrative 07/01/2024 3:43 PM EDT [facility] Diagnostic Imaging Department [address] [place] [address] Patient: STEPHANIE MCCOLLUM Cassandra GarzaB./Age/Sex: 1960 - 63 - F Unit#: [id number] Location/Status: [facility] CLI Mnemonic/Ordering Site: [facility] Ordering Physician: HARISH FARIAS PA-C [facility] Screening Digital - 07/01/24 - 1504 Report Status:Signed EXAM: [facility] Screening Digital EXAM DATE AND TIME: 07/01/2024 3:04 PM HISTORY: Annual screening COMPARISON: 06/22/2023, 12/17/2022, 06/18/2022, 12/17/2021, 06/18/2021, 06/01/2020 and 02/22/2019 TECHNIQUE: Bilateral digital breast tomosynthesis was performed in the CC and MLO projections. Computer aided detection with Wild Needle 7.2-H and SMIC 3D 3.1 was employed. TISSUE DENSITY: a. [...] Procedure Note Elizabeth Harper MD - 07/09/2024 [facility] Diagnostic Imaging Department [address] [place] [address] Patient: VEDASTEPHANIE Cassandra /Age/Sex: 1960 - 63 - F Unit#: [id number] Location/Status: [facility] CLI Mnemonic/Ordering Site: [facility] Ordering Physician: HARISH FARIAS PA-C [facility] Screening Digital - 07/01/24 - 1504 Report Status:Signed EXAM: [facility] Screening Digital EXAM DATE AND TIME: 07/01/2024 3:04 PM HISTORY: Annual screening COMPARISON: 06/22/2023, 12/17/2022, 06/18/2022, 12/17/2021, 06/18/2021, 06/01/2020 and 02/22/2019 TECHNIQUE: Bilateral digital breast tomosynthesis was performed in the CCand MLO projections. Computer aided detection with Wild Needle 7.2-H andiCAD Pro Found 365looks 3D 3.1 was employed. TISSUE DENSITY: a. [...] RESULTING AGENCY - 06/17/2018 9:30 AM EDT [id number] THINPREP PAP, IMAGED: NEGATIVE FOR SQUAMOUS INTRAEPITHELIAL [...] Recently Relevant to Health Maintenance Care Teams Pattern And Chain Maker Relationship Specialty Start Date End Date Harish Farias PA PCP - General 11/06/23
--- OUTSIDE RECORDS SUMMARY | 2025-09-05 18:39 | XMS_ITS | Encounter Summary ---
Author Organization [facility] Prior to 07/08/2024 Address [address] [place] [address] Care Team Providers Care Bartacker Name Role Phone Roxanne Wooten MD Primary Care Provider Unava Nora Rolon MD Primary Care Provider Unavailab [facility] Primary Care Provider UnavailVijaya Walsh MD Primary Care Provider [phone] Harish Murrell Primary Care [facility] Encounter Details Date Type Department Care Team Description 03/07/2014 Pt. Non Urgent Medic al Question Adult Medicine [address] [address] Roxanne Wooten MD Social History Tobacco Use [...] on filedocumented in this encounter Care Teams Bartacker Relationship Specialty Start Date End Date Roxanne Wooten MD PCP - General Internal Medicine 01/20/12 04/17/21 Nora Michelle MD PCP - General Internal Medicine 04/18/21 06/10/21 [facility], Pcp PCP - General Internal Medicine 06/11/21 02/22/23 Vijaya Tran MD [address] [place] [address] PCP - General Internal Medicine 02/23/23 11/05/23 Harish Murrell [address] [place] [address] PCP - General Internal Medicine 11/06/23 documented as of this encounter
--- OUTSIDE RECORDS SUMMARY | 2025-09-05 18:39 | XMS_ITS | Encounter Summary ---
Author Organization Sophie [facility] Prior to 07/08/2024 Address [address] [place] [address] Care Team Providers Care Telephone Supervisor Name Role Phone Roxanne Wooten MD Primary Care Provider Unava ilNora Rodríguez MD Primary Care Provider Unavailab le [facility], Pcp Primary Care Provider Unavailabl Vijaya Maldonado MD Primary Care Provider [phone] Harish Murrell Primary Care Provider Unavailab le Reason for Referral * Non ADOLFO (Priority) - Authorized/Booked Specialty Diagnoses / Procedures Referred By Tony cleary Referred To Contact Dermatology Diagnoses Neoplasm of uncertain behavior Procedures REFERRAL TO DERMATOLOGY Sylvia Callejas PA-C [address] [place] [address] Derm/[place] [address] [place] [address] Referral ID Status Reason Start Date Expiration Date V isits Requested Visits Authorized [id number] Authorized/B ooked 01/17/2019 01/17/2020 1 1 Reason for Visit * Reason Onset Date Comments skin problems 01/17/2019 Encounter Details Date Type Department Care Team Description 01/17/2019 Pt. Non Urgent Medical Question Adult [address] [address] Roxanne Wooten MD Neoplasm of uncertain behavior [...] to go have it checked by a refresh technician. Is there someone you can recommend that I could contact directly for an appointment. 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
--- OUTSIDE RECORDS SUMMARY | 2025-09-05 18:39 | XMS_ITS | Encounter Summary ---
Author Organization Sophie [facility] [facility] Prior to 07/08/2024 Address [address] [place] [address] Care Team Providers Care Net Repairer Name Role Phone Roxanne Wooten MD Primary Care Provider Unava Nora Rolon MD Primary Care Provider Unavailab [facility] Primary Care Provider UnavailVijaya Walsh MD Primary Care Provider [phone] Harish Murrell Primary Care Provider Unavailab Encounter Details Date Type Department Care Team Description 12/24/2015 Pt. Non Urgent Medical Question Cardiology - [address] [address] Bria Ocampo DNP [address] [place] [address] Social History Tobacco Use Types Packs/Day Years [...] Progress Notes * Kate Coe L.P.N. - 12/24/2015 1:32 PM EDTFrom: Miracle Joseph To: Bria Ocampo DNP,MOO Sent: 12/24/2015 12:26 PM EDT Subject: notes on test Regarding x-rays done 12/22/15... I did not have bowel surgery in August 2015, it was an aortic valve replacement. Confused... documented in this encounter Plan of Treatment Not on file documented as of this encounter Visit Diagnoses Not on filedocumented in this encounter Care Teams Net Repairer Relationship Specialty Start Date End Date Roxanne Wooten MD PCP - General Internal Medicine 01/20/12 04/17/21 Nora Michelle MD PCP - General Internal Medicine 04/18/21 06/10/21 Angelina Villar PCP - General Internal Medicine 06/11/21 02/22/23 Vijaya Tran MD [address] [place] [address] PCP - General Internal Medicine 02/23/23 11/05/23 Harish Murrell [address] [place] [address] PCP - General Internal Medicine 11/06/23 documented as of this encounter
--- OUTSIDE RECORDS SUMMARY | 2025-09-05 18:39 | XMS_ITS | Encounter Summary ---
Author Organization Sophie [facility] Prior to 07/08/2024 Address [address] [place] [address] Care Team Providers Care Metal Solderer Name Role Phone Roxanne Wooten MD Primary Care Provider Unava ilNora Rodríguez MD Primary Care Provider Unavailab donald [facility] [place] Primary Care Provider UnavailVijaya Walsh MD Primary Care Provider [phone] Harish Murrell Primary Care Provider Unavailab bennett Encounter Details Date Type Department Care Team Description 02/15/2016 Brand Ambassador Report Medical Records [address] [place] [address] Corby Uriarte MD Social History Tobacco Use [...] on filedocumented in this encounter Care Teams Metal Solderer Relationship Specialty Start Date End Date Roxanne Wooten MD PCP - General Internal Medicine 01/20/12 04/17/21 Nora Michelle MD PCP - General Internal Medicine 04/18/21 06/10/21 [facility] PCP - General Internal Medicine 06/11/21 02/22/23 Vijaya Tran MD [address] [place] [address] PCP - General Internal Medicine 02/23/23 11/05/23 Harish Murrell [address] [place] [address] PCP - General Internal Medicine 11/06/23 documented as of this encounter
--- OUTSIDE RECORDS SUMMARY | 2025-09-05 18:39 | XMS_ITS | Encounter Summary ---
Author Organization Sophie [employer] [facility] Prior to 07/08/2024 Address [address] [place] [address] Care Team Providers Care Molding Process Technician Name Role Phone Roxanne Wooten MD Primary Care Provider Unava ilNora Rodríguez MD Primary Care Provider Unavailab donald [facility] Primary Care Provider UnavailVijaya Walsh MD Primary Care Provider [phone] Harish Murrell Primary Care Provider Unavailab bennett Encounter Details Date Type Department Care Team Description 01/10/2016 Power Builder Developer Report Medical Records [address] [place] [address] [place] Simeon Social History Tobacco Use Types [...] on filedocumented in this encounter Care Teams Molding Process Technician Relationship Specialty Start Date End Date Roxanne Wooten MD PCP - General Internal Medicine 01/20/12 04/17/21 Nora Michelle MD PCP - General Internal Medicine 04/18/21 06/10/21 [facility], [facility] PCP - General Internal Medicine 06/11/21 02/22/23 Vijaya Tran MD [address] [place] [address] PCP - General Internal Medicine 02/23/23 11/05/23 Harish Murrell [address] [place] [address] PCP - General Internal Medicine 11/06/23 documented as of this encounter
== END 2025-09-05 16:39 | disposition home or self-care (01) ==
LOC: HO.HMCH 15:11
PROVIDERS: PCP Physician Assistant; Visit Provider Physician Assistant
DX: Z00.00 Encounter for general adult medical examination without abnormal findings (principal); I10 Essential (primary) hypertension; E11.65 Type 2 diabetes mellitus with hyperglycemia; I48.0 Paroxysmal atrial fibrillation; Z95.2 Presence of prosthetic heart valve; E66.811 Obesity, class 1; R22.1 Localized swelling, mass and lump, neck